=== PATIENT | male | born 1990 ===

== ENCOUNTER 2016-08-12 21:05 | Emergency (ER) | payer SELFPAY ==
[2016-08-12] MEDS ORDERED: Sodium Chloride 0.9% 1,000 ML IV STA (21:26)
[2016-08-12 21:28] VITALS: RESP 18; TEMP 98.9; O2SAT 100; BMI 23.0
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
[2016-08-12 22:08] LABS: BLOOD UREA NITROGEN 7 mg/dL (7-21); CALCIUM 8.9 mg/dL (8.4-10.5); CARBON DIOXIDE 24 mmol/L (21-33); CHLORIDE 105 mmol/L (98-107); GFR AFRICAN-AMERICAN > 60; GLUCOSE,RANDOM 99 mg/dL (70-110); LIPASE 127 U/L (23-300); POTASSIUM 3.9 mmol/L (3.6-5.0); SODIUM 141 mmol/L (132-148)
[2016-08-12 22:14] LABS: HEMATOCRIT 35.9 % (42.0-52.0); MEAN CELL VOLUME 79.1 fL (80.0-105.0); MEAN CORPUSCULAR HEMOGLOBIN 27.1 pg (25.0-35.0); MEAN CORPUSCULAR HGB CONC 34.3 g/dl (31.0-37.0); MEAN PLATELET VOLUME 12.3 fl (7.0-11.0); RED CELL DISTRIBUTION WIDTH 13.4 % (11.5-14.5); WHITE BLOOD COUNT 4.5 [, 10^3/ul] (4.5-11.0)
[2016-08-13 00:47] VITALS: BP 150/84; PULSE 98
== END 2016-08-13 00:50 | disposition home or self-care (01) ==
LOC: ED 21:05
DX: K29.70 Gastritis, unspecified, without bleeding (principal)
CPT/HCPCS: 80048; 83690; 85027; 96361; 96374; 96375; 99284; J2405; J7040

== ENCOUNTER 2016-09-06 11:20 | Emergency (ER) | payer OTHER ==
[2016-09-06 11:20] VITALS: BMI 23.0
[2016-09-06 11:57] VITALS: BP 151/76; PULSE 105; RESP 16; TEMP 98.8; O2SAT 100
[2016-09-06] MEDS ORDERED: Naproxen 550 mg Tab PO ONE (12:39)
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
--- NOTE | 2016-09-06 14:09 | RAD ---
PROCEDURE: Radiographs of the left tibia and fibula. HISTORY: trauma COMPARISON: 11/02/2015. TECHNIQUE: Frontal and lateral views obtained. FINDINGS: BONES: The prior left tibial intramedullary meg transfixing a prior distal tibial shaft fracture (fairly well healed) is renoted. There is probable interval increase cortical healing the lateral and more proximal medial tibial prior fracture sites since the prior exam. Mild residual deformity and overall increased sclerosis and cortical thickening are renoted. No interval hardware failure suggested. No interval fractures appreciated Two proximal and 2 distal screws before are present and intact. JOINT SPACES: Unremarkable. OTHER FINDINGS: None. IMPRESSION: Near- completely healed distal tibial fracture with residual deformity. Intramammary medullary meg- similar in appearance. No hardware failure suggested. No interval fracture suggested
--- NOTE | 2016-09-06 14:40 | US ---
PROCEDURE: Left lower extremity venous US HISTORY: Leg pain and swelling. Evaluate for DVT. PHYSICIAN(S): Jose East MD. TECHNIQUE: Duplex sonography and color-flow Doppler with graded compression were used to evaluate the deep venous system of the left lower extremity. FINDINGS: The visualized deep venous system of the left lower extremity is sonographically normal and compressible. Normal wave forms and augmentation are seen. There is no sonographic evidence for deep venous thrombosis in the visualized segments of the left lower extremity. IMPRESSION: 1. No sonographic evidence for deep venous thrombosis in the visualized segments of the left lower extremity.
== END 2016-09-06 14:35 | disposition home or self-care (01) ==
LOC: ED 11:20
DX: M79.605 Pain in left leg (principal); E03.9 Hypothyroidism, unspecified

== ENCOUNTER 2017-09-28 13:23 | Emergency (ER) | payer MEDICAID, OTHER ==
[2017-09-28 14:27] VITALS: RESP 18; BMI 22.3
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
--- NOTE | 2017-09-28 15:33 | RAD ---
PROCEDURE: Radiographs of the Right Forearm HISTORY: forearm pain COMPARISON: None available. TECHNIQUE: Frontal and lateral views obtained. FINDINGS: BONES: No fracture or destructive lesion. JOINT SPACES: Unremarkable. OTHER FINDINGS: None. IMPRESSION: Unremarkable radiographs of the right forearm.
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
[2017-09-28 16:19] VITALS: BP 136/67; PULSE 76; TEMP 98; O2SAT 100
== END 2017-09-28 16:16 | disposition home or self-care (01) ==
LOC: ED 13:23
DX: M79.601 Pain in right arm (principal); M25.552 Pain in left hip; M25.551 Pain in right hip; F17.210 Nicotine dependence, cigarettes, uncomplicated; E03.9 Hypothyroidism, unspecified

== ENCOUNTER 2018-01-22 04:26 | Emergency (ER) | payer MEDICAID ==
[2018-01-22 04:27] VITALS: BMI 22.3
[2018-01-22 04:53] VITALS: RESP 18; TEMP 98.5; O2SAT 97
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
[2018-01-22 05:33] VITALS: PULSE 106
[2018-01-22 05:43] VITALS: BP 127/82
--- NOTE | 2018-01-22 08:32 | RAD ---
Date of service: 01/22/2018 PROCEDURE: Radiographs of the left tibia and fibula. HISTORY: pain COMPARISON: None available. TECHNIQUE: Frontal and lateral views obtained. FINDINGS: BONES: No acute fracture. Old healed fracture mid tibial diaphysis. Tibial medullary meg with multiple transverse screws affixing the meg. JOINT SPACES: Unremarkable. OTHER FINDINGS: None. IMPRESSION: No acute fracture.
--- NOTE | 2018-01-22 08:32 | RAD ---
Date of service: 01/22/2018 PROCEDURE: Left Ankle Radiographs. HISTORY: pain COMPARISON: None FINDINGS: BONES: No acute fracture. Old healed tibial diaphysis fracture. Tibial medullary meg with transverse screw in distal tibial diaphysis. JOINTS: Normal. No osteoarthritis. Ankle mortise maintained. Talar dome intact SOFT TISSUES: Normal. OTHER FINDINGS: None. IMPRESSION: No acute fracture.
== END 2018-01-22 06:00 | disposition home or self-care (01) ==
LOC: ED 04:26
DX: M79.605 Pain in left leg (principal); F17.210 Nicotine dependence, cigarettes, uncomplicated; E03.9 Hypothyroidism, unspecified

== ENCOUNTER 2018-02-26 02:34 | Emergency (ER) | payer MEDICAID ==
[2018-02-26 02:35] VITALS: BMI 22.3
[2018-02-26 03:08] VITALS: TEMP 98.9
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
[2018-02-26 03:34] VITALS: BP 118/68; PULSE 90; RESP 18; O2SAT 100
== END 2018-02-26 03:33 | disposition home or self-care (01) ==
LOC: ED 02:34
DX: J03.90 Acute tonsillitis, unspecified (principal); E03.9 Hypothyroidism, unspecified; F17.210 Nicotine dependence, cigarettes, uncomplicated

== ENCOUNTER 2018-03-25 12:51 | Emergency (ER) | payer MEDICAID ==
[2018-03-25 13:47] VITALS: TEMP 98.9; BMI 23.0
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
[2018-03-25 19:58] VITALS: BP 119/75; PULSE 80; RESP 20; O2SAT 99
== END 2018-03-25 16:30 | disposition home or self-care (01) ==
LOC: ED 12:51
DX: J40 Bronchitis, not specified as acute or chronic (principal); F17.210 Nicotine dependence, cigarettes, uncomplicated; E03.9 Hypothyroidism, unspecified

== ENCOUNTER 2018-04-03 17:53 | Inpatient (IN) | payer MEDICAID ==
[2018-04-03 17:53] VITALS: BMI 23.0
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
[2018-04-03] MEDS ORDERED: Sodium Chloride 0.9% 1,000 ML IV STA (18:23)
--- NOTE | 2018-04-03 18:45 | RAD ---
Date of service: 04/03/2018 HISTORY: cough x 1month with sob COMPARISON: 07/28/2016 FINDINGS: LUNGS: The lungs are well inflated. There is ill-defined airspace disease in the right lower lobe. The left lung is clear. PLEURA: No pleural effusions or pneumothorax. CARDIOVASCULAR: There is mild cardiomegaly. No aortic atherosclerotic calcification present. OSSEOUS STRUCTURES: Within normal limits for the patient's age. VISUALIZED UPPER ABDOMEN: Normal. OTHER FINDINGS: None. IMPRESSION: Ill-defined airspace disease in the right lower lobe may represent subsegmental atelectasis however superimposed pneumonia cannot be excluded. Follow-up after medical management is recommended to ensure complete resolution. Mild cardiomegaly.
[2018-04-03 19:05] LABS: BASO # 0.01 K/mm3 (0.0-2.0); BASO % 0.1 % (0.0-3.0); EOS % 0.4 % (1.5-5.0); GRAN # 4.06 (1.4-6.5); GRAN % 58.5 % (50.0-68.0); HEMOGLOBIN 11.6 g/dL (14.0-18.0); LYMPH % 28.9 % (22.0-35.0); MEAN CELL VOLUME 76.8 fl (80.0-105.0); MEAN CORPUSCULAR HEMOGLOBIN 25.7 pg (25.0-35.0); MEAN CORPUSCULAR HGB CONC 33.4 g/dl (31.0-37.0); MEAN PLATELET VOLUME 12.1 fl (7.0-11.0); MONO # 0.8 (0.1-0.6); MONO % 12.1 % (1.0-6.0); RBC 4.52 10^6/uL (3.5-6.1); RED CELL DISTRIBUTION WIDTH 13.3 % (11.5-14.5)
[2018-04-03 19:10] LABS: INR 1.74; PROTHROMBIN TIME 20.1 SECONDS (9.4-12.5)
[2018-04-03 19:29] LABS: ALB/GLOB RATIO 0.9 (1.1-1.8); ALBUMIN 3.3 g/dL (3.0-4.8); ALT/SGPT 128 U/L (7-56); AST/SGOT 138 U/L (17-59); BLOOD UREA NITROGEN 12 mg/dL (7-21); CALCIUM 8.6 mg/dL (8.4-10.5); GFR NON-AFRICAN AMERICAN > 60; LIPASE 124 U/L (23-300); TROPONIN I < 0.01 ng/mL
[2018-04-03] MEDS ORDERED: diltiaZEM IVPB 100mg in NS 100 ML IV PRN (19:51)
[2018-04-03] MEDS ORDERED: Propranolol 1 mg/mL Inj IV ONE ×2 (19:54→20:18)
[2018-04-03] MEDS ORDERED: Magnesium Sulfate 2 gm/50 ml 2 GM/50 ML BAG IVPB ONE (20:12)
[2018-04-03] MEDS ORDERED: Magnesium Sulfate 1 gm in D5W 1 GM/100 ML BAG IVPB ONE (20:14)
[2018-04-03 20:57] LABS: B-TYPE NATRIURETIC PEPTIDE 4780 pg/mL (0-450)
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
[2018-04-03] MEDS: Cholestyramine 4 gm/Pkt UD PO SCH (23:21)
[2018-04-03 23:57] LABS: IRON 34 ug/dL (45-180)
[2018-04-04 00:06] LABS: % IRON SATURATION 8 % (20-55); TOTAL IRON BINDING CAPACITY 397 ug/dL (261-462)
--- NOTE | 2018-04-04 01:40 | CON ---
DATE: 04/04/2018 ENDOCRINOLOGY CONSULTATION LOCATION: In ICU 128, room 4. HISTORY OF PRESENT ILLNESS: This is a 27-year-old male with known history of previous thyroid dysfunction and now admitted with progressively worsening generalized body weakness and supervening nausea, dyspepsia and hyperdefecation and is now being referred for endocrine evaluation of hyperthyroidism and possible thyroid storm. PAST MEDICAL HISTORY: Admits to having been diagnosed in 2013 to have some kind of thyroid dysfunction and was initially given thyroid medications, the exact names not known at this time, but eventually was discontinued with no subsequent followup medically or with lab testing, history of cardiac arrhythmias, again off medications at this time. History of chronic asthmatic bronchitis with nonspecific coughing episodes. FAMILY HISTORY: Positive for thyroid disorder and his mother is taking some kind of thyroid medication. There is also history of hypertension and dyslipidemia. SOCIAL HISTORY: Patient has been a current smoker, but quit a few weeks ago when the bronchitis supervened as noted. He has a supportive family otherwise. REVIEW OF SYSTEMS: As mentioned above, admits to generalized body weakness with easy fatigability and tiredness and suboptimal energy level. Also admits to episodic dizziness and lightheadedness with bifrontal headaches. Admits to episodic precordial chest pain with progressively worsening palpitations especially on exertion. Also admits to paroxysmal coughing episodes over the past month or so worse through the time of admission. Also admits to episodic shortness of breath especially on exertion. His oral intake has been variable with nausea, dyspepsia and episodic vomiting episodes with marked hyperdefecation and has loose bowel movements 3-4 times daily for the past month or so was noted. He also admits to recent weight loss of over 10 pounds or so as noted with increasing bouts of anxiety and disrupted sleep patterns with marked insomnia as noted. PHYSICAL EXAMINATION: GENERAL: This is an average built male in no apparent distress. VITAL SIGNS: Blood pressure 140/80, pulse of 100 beats per minute and regular, temperature 98, respirations 20, height is 5 feet 3 inches, and weight is 130 pounds. HEENT: Head; normocephalic. Eyes; anicteric with pink conjunctivae. Positive stare. NECK: Supple. Thyroid gland shows diffuse thyromegaly, which is firm and nontender with positive thyroid bruits. No overt palpable thyroid nodules noted. HEART: Hyperdynamic precordium. S1 and S2 is rapid and regular. LUNGS: Clear to auscultation. ABDOMEN: Flat and soft with positive bowel sounds. EXTREMITIES: No peripheral edema. Pulses are +2 bilaterally. LABORATORY DATA: His chemistries showed a free T4 of 6.50 with a TSH of less than 0.02. The proBNP is 4780. Chemistry; BUN of 12, sodium 133, potassium 4.3, chloride 101, CO2 of 24, glucose 122 and creatinine 0.6. ASSESSMENT: This is a 27-year-old male with overt thyrotoxicosis presenting here with marked hyperthyroidism noted both historically, clinically and biochemically most likely related to underlying autoimmune thyroiditis, i.e., Graves disease with orbitopathy and underlying diffuse toxic goiter. He also had a brief bout of cardiac tachyarrhythmias with rapid atrial fibrillation that reversed to normal sinus rhythm with IV beta blockade given on admission. PLAN OF MANAGEMENT: We will continue the present medical management as initiated with Tapazole given as 20 mg p.o. either t.i.d. or q.i.d. as ordered. We will also continue the IV steroid therapy, which will help also with the inhibition of the T4-T3 conversion as noted. We will also continue the beta adrenergic blockade with propranolol therapy as ordered. We will obtain a comprehensive thyroid hormonal profile to include a total T4 or thyroxine, which will actually predict the degree of hyperthyroidism more than a free T4 as ordered. A thyroid stimulating immunoglobulin and a thyroid peroxidase and thyroglobulin panel will be ordered to confirm the presence of underlying thyroid autoimmunity. We will obtain a thyroid ultrasound also to fully delineate the thyroid lobe dimensions. We will hold off the thyroid scan and uptake at this time as this will be done if the patient opts for radioactive iodine ablation in the future. We will follow and advise accordingly. Louise Cunningham MD
[2018-04-04 03:58] LABS: PH,URINE 6.5 (4.7-8.0); URINE BILIRUBIN SMALL (NEGATIVE); URINE BLOOD NEGATIVE (NEGATIVE); URINE GLUCOSE (UA) NEGATIVE (NEGATIVE); URINE LEUKOCYTE ESTERASE NEGATIVE Leu/uL (NEGATIVE); URINE PROTEIN 100 mg/dL (<30 mg/dL)
[2018-04-04 04:01] LABS: URINE COLOR YELLOW (YELLOW)
[2018-04-04 04:02] LABS: URINE APPEARANCE CLEAR (CLEAR)
[2018-04-04 04:10] LABS: URINE BACTERIA RARE (NEG); URINE EPITHELIAL CELLS 0 - 2 /hpf (0-5); URINE RBC 0 - 2 /hpf (0-2); URINE WBC 0 - 2 /hpf (0-6)
[2018-04-04 05:48] LABS: BARBITURATES, UR NEGATIVE (NEGATIVE); BENZODIAZEPINES, UR NEGATIVE (NEGATIVE); OPIATES, UR NEGATIVE (NEGATIVE); PHENCYCLIDINE, UR NEGATIVE (NEGATIVE)
[2018-04-04] MEDS ORDERED: Pantoprazole 40 mg EC Tab PO SCH (06:00)
[2018-04-04 06:57] LABS: INR 2.03; PARTIAL THROMBOPLASTIN TIME 29.3 Seconds (25.1-36.5); PROTHROMBIN TIME 23.7 SECONDS (9.4-12.5)
[2018-04-04 06:59] LABS: GRAN # 3.17 (1.4-6.5); GRAN % 70.1 % (50.0-68.0); HEMOGLOBIN 11.8 g/dL (14.0-18.0); LYMPH # 0.9 (1.2-3.4); LYMPH % 20.8 % (22.0-35.0); MEAN CELL VOLUME 76.9 fl (80.0-105.0); MEAN CORPUSCULAR HEMOGLOBIN 25.1 pg (25.0-35.0); MEAN CORPUSCULAR HGB CONC 32.6 g/dl (31.0-37.0); MONO # 0.4 (0.1-0.6); MONO % 9.1 % (1.0-6.0); PLATELET COUNT 165 10^3/uL (120.0-450.0); RBC 4.71 10^6/uL (3.5-6.1); RED CELL DISTRIBUTION WIDTH 13.3 % (11.5-14.5); WHITE BLOOD COUNT 4.5 10^3/uL (4.5-11.0)
[2018-04-04 07:28] LABS: TROPONIN I < 0.01 ng/mL
[2018-04-04 07:33] LABS: FREE T4 5.91 ng/dL (0.78-2.19); T4 20.2 ug/dL (5.5-11.0)
[2018-04-04 07:36] LABS: ALBUMIN 3.4 g/dL (3.0-4.8); ALT/SGPT 330 U/L (7-56); AST/SGOT 613 U/L (17-59); BILIRUBIN,DIRECT 1.6 mg/dL (0.0-0.4); BLOOD UREA NITROGEN 17 mg/dL (7-21); CALCIUM 8.7 mg/dL (8.4-10.5); GAMMA GLUTAMYL TRANSPEPTIDASE 149 U/L (8-78); GFR NON-AFRICAN AMERICAN > 60; HDL CHOLESTEROL 15 mg/dL (29-60)
[2018-04-04 07:41] LABS: LDL CHOLESTEROL 51 mg/dL (0-129)
[2018-04-04] MEDS: Albuterol 0.083% Inhal Sol (2.5 mg/3 mL) UD IH SCH ×5 (08:13→23:52)
[2018-04-04] MEDS ORDERED: Sod Polystyrene Sulf 15 gm/60 ml Susp PO ONE ×2 (08:24→10:45)
[2018-04-04 08:31] LABS: ERYTHROCYTE SEDIMENTATION RATE 7 mm/hr (0.0-15.0)
--- NOTE | 2018-04-04 08:34 | CT ---
Date of service: 04/03/2018 PROCEDURE: CT Chest with contrast (Pulmonary Angiogram) HISTORY: tachycardia, sob COMPARISON: None available. TECHNIQUE: Axial computed tomography images were obtained of the chest in the pulmonary arterial phase of enhancement. Coronal and sagittal reformatted images were created and reviewed. Radiation dose: Total exam DLP = 374.48 mGy-cm. This CT exam was performed using one or more of the following dose reduction techniques: Automated exposure control, adjustment of the mA and/or kV according to patient size, and/or use of iterative reconstruction technique. Intravenous contrast dose: 147 cc of Omni 350 FINDINGS: PULMONARY ARTERIES: Unremarkable. No pulmonary embolism. AORTA: No acute findings. No thoracic aortic aneurysm. No aortic atherosclerotic calcification or mural plaque present. LUNGS: Unremarkable. No nodule, mass or pulmonary consolidation. PLEURAL SPACES: Large bilateral pleural effusions HEART: Unremarkable. No cardiomegaly. No significant pericardial effusion. LYMPH NODES: No lymphadenopathy. BONES, CHEST WALL: Unremarkable. No fracture or destructive lesion OTHER FINDINGS: Unremarkable. IMPRESSION: Unremarkable CT pulmonary angiogram. No pulmonary embolus. Large bilateral pleural effusions
--- NOTE | 2018-04-04 09:22 | CP.PCM.CON ---
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 Albumin/Globulin Ratio Triglycerides Cholesterol LDL Cholesterol Direct HDL Cholesterol Free T4 5.91 H Thyroxine (T4) 20.2 H Free T3 pg/mL TSH 3rd Generation < 0.02 L Cortisol AM Sample 61.9 H Urine Color Urine Appearance Urine pH Ur Specific [place] Urine Protein Urine Glucose (UA) Urine Ketones Urine Blood Urine Nitrate Urine Bilirubin Urine Urobilinogen Ur Leukocyte Esterase Urine RBC Urine WBC Ur Epithelial Cells Urine Bacteria Urine Opiates Screen Urine Methadone Screen Acetaminophen Ur Barbiturates Screen Ur Phencyclidine Scrn Ur Amphetamines Screen U Benzodiazepines Scrn U Oth Cocaine Metabols U Cannabinoids Screen Hepatitis A IgM Ab Hep Bs Antigen Hep B Core IgM Ab Hepatitis C Antibody HIV 1&2 Antibody Screen 04/04/18 04/04/18 04/04/18 05:30 05:30 06:00 WBC RBC Hgb Hct MCV MCH MCHC RDW Plt Count Gran % Lymph % (Auto) [place] % (Auto) Eos % (Auto) Baso % (Auto) Gran # Lymph # (Auto) [place] # (Auto) Eos # (Auto) Baso # (Auto) Differential Comment ESR Retic Count Haptoglobin PT INR APTT Sodium Potassium Chloride Carbon Dioxide Anion Gap BUN Creatinine Est GFR ( Amer) Est GFR (Non-Af Amer) Random Glucose Hemoglobin A1c 5.7 Calcium Phosphorus Magnesium Iron TIBC % Saturation Transferrin Ferritin Total Bilirubin Direct Bilirubin GGT AST ALT Alkaline Phosphatase Ammonia Lactate Dehydrogenase TNP Total Creatine Kinase 55 Troponin I TNP Total Protein Albumin Globulin Albumin/Globulin Ratio Triglycerides Cholesterol LDL Cholesterol Direct HDL Cholesterol Free T4 Thyroxine (T4) Free T3 pg/mL TSH 3rd Generation Cortisol AM Sample Urine Color Urine Appearance Urine pH Ur Specific [place] Urine Protein Urine Glucose (UA) Urine Ketones Urine Blood Urine Nitrate Urine Bilirubin Urine Urobilinogen Ur Leukocyte Esterase Urine RBC Urine WBC Ur Epithelial Cells Urine Bacteria Urine Opiates Screen Urine Methadone Screen Acetaminophen < 10.0 L Ur Barbiturates Screen Ur Phencyclidine Scrn Ur Amphetamines Screen U Benzodiazepines Scrn U Oth Cocaine Metabols U Cannabinoids Screen Hepatitis A IgM Ab Hep Bs Antigen Hep B Core IgM Ab Hepatitis C Antibody HIV 1&2 Antibody Screen 04/04/18 04/04/18 04/04/18 06:00 13:52 13:52 WBC RBC Hgb Hct MCV MCH MCHC RDW Plt Count Gran % Lymph % (Auto) [place] % (Auto) Eos % (Auto) Baso % (Auto) Gran # Lymph # (Auto) [place] # (Auto) Eos # (Auto) Baso # (Auto) Differential Comment ESR Retic Count Haptoglobin PT 32.9 H INR 2.80 APTT Sodium 134 Potassium 5.0 Chloride 98 Carbon Dioxide 21 Anion Gap 20 BUN 21 Creatinine 0.8 Est GFR ( Amer) > 60 Est GFR (Non-Af Amer) > 60 Random Glucose 262 H Hemoglobin A1c Calcium 8.4 Phosphorus Magnesium Iron TIBC % Saturation Transferrin Ferritin Total Bilirubin 3.1 H Direct Bilirubin 1.7 H GGT 122 H AST 851 H D ALT 443 H Alkaline Phosphatase 31 L D Ammonia Lactate Dehydrogenase 2632 H Total Creatine Kinase Troponin I Total Protein 6.4 Albumin 3.2 Globulin 3.2 Albumin/Globulin Ratio 1.0 L Triglycerides Cholesterol LDL Cholesterol Direct HDL Cholesterol Free T4 Thyroxine (T4) Free T3 pg/mL TSH 3rd Generation Cortisol AM Sample Urine Color Urine Appearance Urine pH Ur Specific [place] Urine Protein Urine Glucose (UA) Urine Ketones Urine Blood Urine Nitrate Urine Bilirubin Urine Urobilinogen Ur Leukocyte Esterase Urine RBC Urine WBC Ur Epithelial Cells Urine Bacteria Urine Opiates Screen Urine Methadone Screen Acetaminophen Ur Barbiturates Screen Ur Phencyclidine Scrn Ur Amphetamines Screen U Benzodiazepines Scrn U Oth Cocaine Metabols U Cannabinoids Screen Hepatitis A IgM Ab Hep Bs Antigen Hep B Core IgM Ab Hepatitis C Antibody HIV 1&2 Antibody Screen 04/04/18 04/04/18 04/04/18 17:30 17:30 21:35 WBC RBC Hgb Hct MCV MCH MCHC RDW Plt Count Gran % Lymph % (Auto) [place] % (Auto) Eos % (Auto) Baso % (Auto) Gran # Lymph # (Auto) [place] # (Auto) Eos # (Auto) Baso # (Auto) Differential Comment ESR Retic Count Haptoglobin PT INR APTT Sodium 131 L 132 Potassium 4.6 4.1 Chloride 95 L 95 L Carbon Dioxide 23 24 Anion Gap 18 17 BUN 22 H 23 H Creatinine 0.8 0.8 Est GFR ( Amer) > 60 > 60 Est GFR (Non-Af Amer) > 60 > 60 Random Glucose 208 H 121 H Hemoglobin A1c Calcium 8.3 L 8.4 Phosphorus Magnesium Iron TIBC % Saturation Transferrin Ferritin Total Bilirubin 2.4 H 2.1 H Direct Bilirubin 1.4 H 1.2 H GGT 128 H 131 H AST 1215 H 1343 H ALT 591 H 678 H Alkaline Phosphatase 75 112 Ammonia < 9 L Lactate Dehydrogenase Total Creatine Kinase Troponin I Total Protein 6.8 6.9 Albumin 3.4 3.5 Globulin 3.4 3.4 Albumin/Globulin Ratio 1.0 L 1.0 L Triglycerides Cholesterol LDL Cholesterol Direct HDL Cholesterol Free T4 Thyroxine (T4) Free T3 pg/mL TSH 3rd Generation Cortisol AM Sample Urine Color Urine Appearance Urine pH Ur Specific [place] Urine Protein Urine Glucose (UA) Urine Ketones Urine Blood Urine Nitrate Urine Bilirubin Urine Urobilinogen Ur Leukocyte Esterase Urine RBC Urine WBC Ur Epithelial Cells Urine Bacteria Urine Opiates Screen Urine Methadone Screen Acetaminophen Ur Barbiturates Screen Ur Phencyclidine Scrn Ur Amphetamines Screen U Benzodiazepines Scrn U Oth Cocaine Metabols U Cannabinoids Screen Hepatitis A IgM Ab Hep Bs Antigen Hep B Core IgM Ab Hepatitis C Antibody HIV 1&2 Antibody Screen 04/04/18 21:35 WBC RBC Hgb Hct MCV MCH MCHC RDW Plt Count Gran % Lymph % (Auto) [place] % (Auto) Eos % (Auto) Baso % (Auto) Gran # Lymph # (Auto) [place] # (Auto) Eos # (Auto) Baso # (Auto) Differential Comment ESR Retic Count Haptoglobin PT 31.2 H INR 2.68 APTT Sodium Potassium Chloride Carbon Dioxide Anion Gap BUN Creatinine Est GFR ( Amer) Est GFR (Non-Af Amer) Random Glucose Hemoglobin A1c Calcium Phosphorus Magnesium Iron TIBC % Saturation Transferrin Ferritin Total Bilirubin Direct Bilirubin GGT AST ALT Alkaline Phosphatase Ammonia Lactate Dehydrogenase Total Creatine Kinase Troponin I Total Protein Albumin Globulin Albumin/Globulin Ratio Triglycerides Cholesterol LDL Cholesterol Direct HDL Cholesterol Free T4 Thyroxine (T4) Free T3 pg/mL TSH 3rd Generation Cortisol AM Sample Urine Color Urine Appearance Urine pH Ur Specific [place] Urine Protein Urine Glucose (UA) Urine Ketones Urine Blood Urine Nitrate Urine Bilirubin Urine Urobilinogen Ur Leukocyte Esterase Urine RBC Urine WBC Ur Epithelial Cells Urine Bacteria Urine Opiates Screen Urine Methadone Screen Acetaminophen Ur Barbiturates Screen Ur Phencyclidine Scrn Ur Amphetamines Screen U Benzodiazepines Scrn U Oth Cocaine Metabols U Cannabinoids Screen Hepatitis A IgM Ab Hep Bs Antigen Hep B Core IgM Ab Hepatitis C Antibody HIV 1&2 Antibody Screen Attending/Attestation - Attestation I have personally seen and examined this patient.: Yes I have fully participated in the care of the patient.: Yes I have reviewed all pertinent clinical information: Yes
[2018-04-04] MEDS ORDERED: Insulin Regular 1 UNITS/0.01 ML ML SC STA ×3 (09:31→10:39)
[2018-04-04] MEDS ORDERED: Dextrose 50% SYRINGE Inj (50 ml) IVP ONE ×2 (09:31→10:45)
--- NOTE | 2018-04-04 09:35 | US ---
Date of service: 04/03/2018 HISTORY: RUQ pain COMPARISON: None. TECHNIQUE: Sonographic evaluation of the abdomen. FINDINGS: LIVER: Measures 16.2 cm. Normal echogenicity of the liver parenchyma. No mass. No intrahepatic bile duct dilatation. Normal directional portal venous blood flow. GALLBLADDER: The gallbladder is mildly distended with a thick wall measuring up to 6.5 mm greatest thickness. Incidental ascites is identified and the finding may be a function of gallbladder hydrops. Clinically correlate further. No cholelithiasis appreciable. COMMON BILE DUCT: Measures 3.3 mm. No stones. No dilatation. PANCREAS: Unremarkable as visualized. No mass. No ductal dilatation. RIGHT KIDNEY: Measures 10.9cm. Normal echogenicity. No calculus, mass, or hydronephrosis. LEFT KIDNEY: Measures 12.0cm. Normal echogenicity. No calculus, mass, or hydronephrosis. SPLEEN: Normal in size and contour, 10.3 cm. No mass. AORTA: No aneurysmal dilatation. IVC: Unremarkable. OTHER FINDINGS: Bilateral pleural effusions incidentally identified. IMPRESSION: No cholelithiasis identified or evidence to suggest biliary tree dilatation, however, the gallbladder wall appears thickened. Presence of ascites may indicate gallbladder hydrops appear rather than cholecystitis and clinical correlation is advised. Limited abdominal ascites. Bilateral pleural effusions incidentally identified. Concordant preliminary report from [facility], 04/03/2018.
[2018-04-04] MEDS ORDERED: Enoxaparin 40 mg Syringe SC SCH (10:00)
[2018-04-04] MEDS ORDERED: ACETYLCYSTEINE IVPB ONE ×4 (10:23→14:30)
[2018-04-04] MEDS ORDERED: DEXTROSE 5% IVPB ONE ×4 (10:23→14:30)
[2018-04-04] MEDS ORDERED: WATER IVPB ONE ×4 (10:23→14:30)
--- NOTE | 2018-04-04 10:39 | US ---
Date of service: 04/04/2018 HISTORY: diffuse toxic goiter/hyperthyroidism TECHNIQUE: Sonographic evaluation of the thyroid gland. COMPARISON: None available. FINDINGS: RIGHT LOBE: Measures 6.6 x 2.9 x 2.6 cm. Heterogeneous echotexture is appreciated throughout the right lobe without definitive cystic or solid mass identifiable. Hyperemic blood flow is suggested on a moderate basis diffusely. LEFT LOBE: Measures 6.5 x 2.5 x 3.1 cm. Heterogeneous echotexture is appreciated throughout the left lobe without definitive cystic or solid mass identifiable. Hyperemic blood flow is suggested on a moderate basis diffusely. ISTHMUS: Measures 0.53 cm. Heterogeneous but nonfocal. OTHER FINDINGS: None . IMPRESSION: Mild thyromegaly is identified including the isthmus, with hyperemic blood flow throughout. This potentially may reflect thyroiditis. Clinically correlate further. No definable cystic or solid mass appreciated.
--- NOTE | 2018-04-04 10:41 | RAD ---
Date of service: 04/04/2018 HISTORY: pleural effusions COMPARISON: 04/03/2018 TECHNIQUE: Chest PA and lateral FINDINGS: LUNGS: No active pulmonary disease. PLEURA: No significant pleural effusion identified. No pneumothorax apparent. CARDIOVASCULAR: No aortic atherosclerotic calcification present. Mild cardiomegaly no pulmonary vascular congestion. OSSEOUS STRUCTURES: No significant abnormalities. VISUALIZED UPPER ABDOMEN: Normal. OTHER FINDINGS: None. IMPRESSION: No active disease.
[2018-04-04] MEDS: Cholestyramine 4 gm/Pkt UD PO SCH ×4 (10:45→21:53)
--- NOTE | 2018-04-04 11:43 | CP.PCM.PN ---
<Francisca Go - Last Filed: 04/04/18 12:23> Subjective - Date & Time of Evaluation Date of Evaluation: 04/04/18 Time of Evaluation: 09:30 - Subjective Subjective: Francisca Go PGY1 Medicine Progress Note Patient seen and examined. Admits to right sided abdominal pain. Possible transfer to [facility] for liver evaluation. Patient initially refused abdominal ultrasound and further blood work. Denies CP, SOB, fevers, diaphoresis, palpitations, muscle rigidity, urinary complaints, numbness, tingling and swellings. Objective - Vital Signs/Intake and Output Vital Signs (last 24 hours): Temp Pulse Resp BP Pulse Ox 98.7 F 109 H 20 125/53 L 100 04/03/18 23:30 04/04/18 05:02 04/03/18 23:30 04/04/18 11:06 04/03/18 22:35 Intake and Output: 04/04/18 04/04/18 06:59 18:59 Intake Total 960 Output Total 402 Balance 558 - Medications Medications: Current Medications Albuterol Sulfate (Albuterol 0.083% Inhal Sandra (2.5 Mg/3 Ml) Ud) 2.5 mg IH Q4 [facility] Last Admin: 04/04/18 08:13 Dose: Not Given Cholestyramine Resin (Questran) 4 gm PO QID [facility] Last Admin: 04/04/18 10:45 Dose: 4 gm Enoxaparin Sodium (Lovenox) 40 mg SC DAILY [facility]; Protocol Last Admin: 04/04/18 10:52 Dose: 40 mg Hydrocortisone Sodium Succinate (Solu-Cortef) 100 mg IVP Q8 [facility] Last Admin: 04/04/18 08:03 Dose: 100 mg Acetylcysteine 3,130 mg/ (Dextrose) 515.65 mls @ 125 mls/hr IVPB ONCE ONE Stop: 04/04/18 14:32 Acetylcysteine 6,260 mg/ (Dextrose) 1,031.3 mls @ 62.5 mls/hr IVPB ONCE ONE Stop: 04/05/18 07:00 Acetylcysteine 9,400 mg/ (Dextrose) 247 mls @ 200 mls/hr IVPB ONCE ONE Stop: 04/04/18 12:44 Methimazole (Tapazole) 20 mg PO Q6 [facility] Last Admin: 04/04/18 05:09 Dose: Not Given Ondansetron HCl (Zofran Inj) 4 mg IVP Q4H PRN PRN Reason: Nausea/Vomiting Last Admin: 04/04/18 09:14 Dose: 4 mg Pantoprazole Sodium (Protonix Ec Tab) 40 mg PO 0600 [facility] Last Admin: 04/04/18 08:03 Dose: 40 mg Propranolol HCl (Inderal) 10 mg PO Q6 [facility] Last Admin: 04/04/18 05:09 Dose: Not Given - Labs Labs: 04/04/18 05:30 04/04/18 05:30 PT 23.7 SECONDS (9.4-12.5) H 04/04/18 05:30 INR 2.03 04/04/18 05:30 APTT 29.3 Seconds (25.1-36.5) 04/04/18 05:30 - Additional Findings Additional findings: - Constitutional Appears: Non-toxic, No Acute Distress Additional comments: agitated - Head Exam Head Exam: ATRAUMATIC, NORMOCEPHALIC - Eye Exam Eye Exam: EOMI Additional comments: conjunctiva pale - ENT Exam ENT Exam: Mucous Membranes Moist - Neck Exam Neck exam: Positive for: Full Rom, Thyromegaly. No tenderness appreciated - Respiratory Exam Respiratory Exam: Clear to Auscultation Bilateral, NORMAL BREATHING PATTERN. absent: Rales, Wheezes - Cardiovascular Exam Cardiovascular Exam: Tachycardia, +S1, +S2. absent: Rubs, Systolic Murmur - GI/Abdominal Exam GI & Abdominal Exam: Normal Bowel Sounds, hepatosplenomegaly, RUQ tenderness. absent: Guarding, Rebound, Rigid, Angel sign - Extremities Exam Extremities exam: Positive for: normal inspection, pedal pulses present. N egative for: pedal edema - Back Exam Back exam: CVA tenderness (R), FULL ROM - Neurological Exam Neurological exam: Alert, Oriented x3 - Skin Skin Exam: Dry, Intact, Warm Assessment and Plan - Assessment and Plan (Free Text) Assessment: This is a 27 year old male with PMH of unspecified thyroid disorder presenting to the hospital for one month history of worsening nausea, vomiting, right sided abdominal pain, diarrhea and SOB. 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 Plan: Thyroid storm: -consider etiology from recent URI vs recent weight loss supplement called "[employer]" vs autoimmune -low TSH, elevated T4. Afebrile -thyroid US shows mild thyromegaly with hyperemic blood flow, may reflect thyroiditis. No cyst or solid mass appreciated -BRANDO, thyroid peroxidase, thyroglobulin panel pending -hydrocortison 100mg IVP q8, mehimazole 20mg PO q6, propranolol 10mg PO 6 -UDS positive for cannabinoids -AM cortisol pending -blood/urine/sputum/cdiff culture pending -Endo on consult, Dr. Cunningham Atrial fibrillation -EKG on presentation showed afib with RVR at 147bpm, controlled with cardizem 20mg bolus -initially on cardizem, currently rate controlled. -continue propranolol 10mg q6 -likely 2/2 thyroid storm Heart failure -CTA showed no PE, large B/L pleural effusions R>L, diffuse pulmonary edema, severe cardiomegaly with pulmonary venous congestive changes, bilateral hilar adenopathy, diffuse pulmonary edema -pleural effusion likely 2/2 afib with decreased LV outflow causing blood to be backed up into the lungs -echo pending -BNP elevated at 4780, trops <0.01 -lasix 40mg IV given in AM, will repeat CXR in PM -monitor weight daily, I/O's -Cardio on consult, Dr. Domingo Acute Liver failure -uptrending LFT's today, consider shock liver as patient was hypotensive overnight vs hepatic congestion from right heart failure -Abd US shows B/L pleural effusions, moderate ascites -INR is uptrending, concern for increased prognosis. Possible transfer to [facility] for liver evaluation -MELD score is 23 corresponding to 7-10% mortality in 90 days -Tbilli elevated, direct bilirubin elevated -HIV, hepatitis, mitochondrial antibody, smooth muscle antibody pending -GI on consult, Dr. Saeed Microcytic Anemia -Hg is 11.8 from 11.6, MCV is 76.9. Hg is stable, no signs of bleeding -iron low, TIBC WNL, transferrin WNL, feritin pending - unclear etiology -retic count responding appropriately - 1.56 -peripheral smear pending -will continue to monitor Hyperkalemia -K 5.7 this morning -kayexalate, insulin, D50, calcium gluconate given -recheck CMP in PM PPX with protonix and lovenox Patient seen and examined with attending, Dr. Jessica Persaud <Jessica Persaud R - Last Filed: 04/05/18 02:06> Objective - Vital Signs/Intake and Output Vital Signs (last 24 hours): Temp Pulse Resp BP Pulse Ox 97.4 F L 125 H 21 110/55 L 88 L 04/04/18 10:00 04/05/18 00:20 04/05/18 00:20 04/05/18 00:00 04/05/18 00:20 Intake and Output: 04/04/18 04/05/18 18:59 06:59 Intake Total 1905 Output Total 2102 Balance -197 - Labs Labs: 04/04/18 05:30 04/04/18 21:35 PT 31.2 SECONDS (9.4-12.5) H 04/04/18 21:35 INR 2.68 04/04/18 21:35 APTT 29.3 Seconds (25.1-36.5) 04/04/18 05:30 Attending/Attestation - Attestation I have personally seen and examined this patient.: Yes I have fully participated in the care of the patient.: Yes I have reviewed all pertinent clinical information, including history, physical exam and plan: Yes Notes (Text): Patient seen and examined by me with resident at 10AM on 04/04/18. Case including HPI, physical exam, and assessment and plan discussed with resident. Agree with above with following additions/corrections. Patient is 27-year-old male with past medical history significant for recent bronchitis per patient and unspecified thyroid disorder that presented to the emergency room with worsening of right flank pain, nausea/vomiting/diarrhea, shortness of breath, and cough worsening over one month. Patient states that he is feeling a little better today. Patient states he is only having abdominal pain when the right upper abdominal quadrant is palpated. Patient states he has shortness of breath when he is lying flat. Also complains of cough. No chest pain or palpitations. No fevers or chills. No headaches or dizziness. No nausea or vomiting. Patient is tolerating diet. No dysuria. Patient is having bowel movements. Physical exam: General: Awake and alert lying in bed in no acute distress HEENT: Normocephalic, atraumatic. Extraocular muscles intact, pupils equal and reactive, positive scleral icterus. Oropharynx is pink and moist. Neck is supple. Cardiovascular: Irregularly irregular rhythm. No murmurs, rubs, or gallops appreciated Pulmonary: Normal respiratory effort. Decreased breath sounds. No rhonchi, rales, or wheezing appreciated. Gastrointestinal: Soft, nondistended. Positive right upper quadrant abdominal tenderness with mild palpation. Positive bowel sounds all 4 quadrants. No guarding. Musculoskeletal: Moves all extremities. No calf tenderness. No CVA tenderness. Trace bilateral lower extremity edema Central nervous system: AAO x3, CN 2-12 grossly intact. 5 out of 5 muscle strength all extremities. Dermatologic: Skin warm and dry. Assessment and plan: Patient is 27-year-old male with past medical history significant for recent bronchitis per patient and unspecified thyroid disorder that presented to the emergency room with worsening of right flank pain, nausea/vomiting/diarrhea, shortness of breath, and cough worsening over one month. 1. 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 Endocrinology following, recommendations appreciated. Continue methimazole, propanolol, and hydrocortisone. Continue Questran. Pending BRANDO, thyroid peroxidase, and thyroglobulin panel. Thyroid ultrasound per radiologist shows mild thyromegaly is identified including the isthmus with hyperemic blood flow throughout, this potentially may reflect thyroiditis, no definable cystic or solid masses appreciated. 2. Liver failure. LFTs up trending. INR up trending. Likely secondary to #1. GI following, recommendations appreciated. Abdominal ultrasound per radiologist showed no cholelithiasis identified or evidence to suggest biliary tree dilatation however, the gallbladder wall appears thickened; presence of ascites may indicate gallbladder hydrops appears rather than cholecystitis; limited abdominal ascites, bilateral pleural effusions incidentally identified. Portable vein duplex ultrasound per radiologist showed patent portal vein with hepatopetal flow. Continue to monitor LFTs every 4 hours. Likely transfer to higher level of care. Continue with acetylcysteine. 3. Bilateral pleural effusions seen on abdominal ultrasound. Severe biventricular failure. CTA chest per radiologist showed unremarkable CT pulmonary angiogram, no pulmonary embolism, large bilateral pleural effusions. 2-D echo per beating machine operator shows severe biventricular failure, moderate to severe MR and TR, ejection fraction approximately 20%. Cardiology consulted, recommendations appreciated. Aldactone added per cardiology. Patient given Lasix. Patient on Cozaar and propanolol. Strict I's and O's. Monitor daily weights. 4. New onset atrial fibrillation. Patient was given Cardizem in the emergency room. Likely secondary to #1. Continue with propanolol and methimazole. Cardiology following, recommendations appreciated. 5. Hyperkalemia. Patient given calcium gluconate. Patient given insulin and D50 with resolution. Continue to monitor 6. GI/DVT prophylaxis. Protonix/Lovenox Case discussed in detail with the patient regarding current diagnosis and treatment plan. Seriousness of patient's condition discussed at length with patient. Compliance with treatment also discussed at length with patient. All questions answered.
[2018-04-04 12:48] LABS: HEPATITIS B SURFACE AG Negative (NEGATIVE)
--- NOTE | 2018-04-04 12:48 | CP.CCUPN ---
<Alicia Shah - Last Filed: 04/04/18 13:33> CCU Subjective - Physician Review Subjective (Free Text): CRITICAL CARE PROGRESS NOTE FOR DR. CLOVIS Shah PGY-1 Pt seen and examined at bedside this am. He was initially agitated and was refusing bloodwork and tests however is amenable to treatment with further discussion. He reports nausea, poor appetite, generalized fatigue for the past month. He reports that he drinks a 12-pack of beer about 3x/week since his father in june, however reports he hasn't drank in the past few days. He reports smoking weed occasionally, but doesn't take any other drugs. He reports consuming "kidney detox" the day before yesterday that he purchased at [facility]. Upon interview, he denies complaints and reports feeling better. He denies other ROS CCU Objective - Vital Signs / Intake & Output Vital Signs (Last 4 hours): Vital Signs BP 04/04/18 11:06 125/53 L 04/04/18 10:44 125/53 L Intake and Output (Last 8hrs): Intake & Output 04/03/18 04/04/18 04/04/18 22:59 06:59 14:59 Intake Total 960 Output Total 402 Balance 558 Weight 58.967 kg 62.641 kg Intake: Oral 960 Output: Urine 400 Urine, Voided 400 Stool 1 Emesis 1 - Physical Exam Head: Positive for: Atraumatic, Normocephalic Pupils: Positive for: PERRL Extroacular Muscles: Positive for: EOMI Conjunctiva: Positive for: Icteric Mouth: Positive for: Moist Mucous Membranes Neck: Positive for: Normal Range of Motion Respiratory/Chest: Positive for: Clear to Auscultation, Good Air Exchange, Rhonchi (RLL). Negative for: Respiratory Distress, Accessory Muscle Use Cardiovascular: Positive for: Regular Rate and Rhythm, Normal S1, S2. Negative for: Murmurs Abdomen: Positive for: Distention. Negative for: Tenderness, Peritoneal Signs, Rebound, Guarding Back: Positive for: Normal Inspection Upper Extremity: Positive for: Normal Inspection. Negative for: Cyanosis, Edema Lower Extremity: Positive for: Normal Inspection. Negative for: Edema Neurological: Positive for: GCS=15, CN II-XII Intact, Speech Normal Skin: Positive for: Warm, Dry, Rashes (mild jaundice) Psychiatric: Positive for: Alert, Oriented x 3, Normal Insight, Normal Concentration - Medications Active Medications: Active Medications Generic Name Dose Route Start Last Admin Trade Name Freq PRN Reason Stop Dose Admin Albuterol Sulfate 2.5 mg 04/04/18 00:00 04/04/18 08:13 Albuterol 0.083% Inhal Sandra (2.5 Mg/3 Ml) Ud IH Not Given Q4 ALLEY Cholestyramine Resin 4 gm 04/03/18 22:00 04/04/18 10:45 Questran PO 4 gm QID ALLEY Administration Enoxaparin Sodium 40 mg 04/04/18 10:00 04/04/18 10:52 Lovenox SC 40 mg DAILY ALLEY Administration Protocol Hydrocortisone Sodium Succinate 100 mg 04/03/18 22:00 04/04/18 08:03 Solu-Cortef IVP 100 mg Q8 ALLEY Administration Acetylcysteine 3,130 mg/ 515.65 mls @ 125 mls/hr 04/04/18 10:25 Dextrose IVPB 04/04/18 14:32 ONCE ONE Acetylcysteine 6,260 mg/ 1,031.3 mls @ 62.5 mls/hr 04/04/18 14:30 Dextrose IVPB 04/05/18 07:00 ONCE ONE Methimazole 20 mg 04/04/18 00:00 04/04/18 05:09 Tapazole PO Not Given Q6 ALLEY Ondansetron HCl 4 mg 04/04/18 01:00 04/04/18 09:14 Zofran Inj IVP 4 mg Q4H PRN Administration Nausea/Vomiting Pantoprazole Sodium 40 mg 04/04/18 06:00 04/04/18 08:03 Protonix Ec Tab PO 40 mg 0600 ALLEY Administration Propranolol HCl 10 mg 04/04/18 00:00 04/04/18 05:09 Inderal PO Not Given Q6 ALLEY - Patient Studies Lab Studies: Lab Studies 04/04/18 04/04/18 04/04/18 Range/Units 06:00 06:00 05:30 WBC (4.5-11.0) 10^3/uL RBC (3.5-6.1) 10^6/uL Hgb (14.0-18.0) g/dL Hct (42.0-52.0) % MCV (80.0-105.0) fl MCH (25.0-35.0) pg MCHC (31.0-37.0) g/dl RDW (11.5-14.5) % Plt Count (120.0-450.0) 10^3/uL MPV (7.0-11.0) fl Gran % (50.0-68.0) % Lymph % (Auto) (22.0-35.0) % [place] % (Auto) (1.0-6.0) % Eos % (Auto) (1.5-5.0) % Baso % (Auto) (0.0-3.0) % Gran # (1.4-6.5) Lymph # (Auto) (1.2-3.4) [place] # (Auto) (0.1-0.6) Eos # (Auto) (0.0-0.7) Baso # (Auto) (0.0-2.0) K/mm3 Differential Comment ESR (0.0-15.0) mm/hr Retic Count (0.5-1.5) % Haptoglobin (30.0-200.0) mg/dL PT (9.4-12.5) SECONDS INR APTT (25.1-36.5) Seconds D-Dimer, Quantitative (0-243) ng/mlDDU Sodium (132-148) mmol/L Potassium (3.6-5.0) mmol/L Chloride (98-107) mmol/L Carbon Dioxide (21-33) mmol/L Anion Gap (10-20) BUN (7-21) mg/dL Creatinine (0.8-1.5) mg/dl Est GFR ( Amer) Est GFR (Non-Af Amer) POC Glucose (mg/dL) (65-110) mg/dL Random Glucose (70-110) mg/dL Hemoglobin A1c (4.2-6.5) % Calcium (8.4-10.5) mg/dL Phosphorus (2.5-4.5) mg/dL Magnesium (1.7-2.2) mg/dL Iron (45-180) ug/dL TIBC (261-462) ug/dL % Saturation (20-55) % Transferrin (206-381) mg/dL Total Bilirubin (0.2-1.3) mg/dL Direct Bilirubin (0.0-0.4) mg/dL GGT (8-78) U/L AST (17-59) U/L ALT (7-56) U/L Alkaline Phosphatase (38-126) U/L Ammonia (9-33) umol/L Lactate Dehydrogenase 2632 H TNP Total Creatine Kinase 55 (35-230) U/L Troponin I TNP ng/mL NT-Pro-B Natriuret Pep (0-450) pg/mL Total Protein (5.8-8.3) g/dL Albumin (3.0-4.8) g/dL Globulin gm/dL Albumin/Globulin Ratio (1.1-1.8) Triglycerides (35-160) mg/dL Cholesterol (130-200) mg/dL LDL Cholesterol Direct (0-129) mg/dL HDL Cholesterol (29-60) mg/dL Lipase (23-300) U/L Free T4 (0.78-2.19) ng/dL Thyroxine (T4) (5.5-11.0) ug/dL Free T3 pg/mL (2.77-5.27) pg/mL TSH 3rd Generation (0.46-4.68) mIU/mL Urine Color (YELLOW) Urine Appearance (CLEAR) Urine pH (4.7-8.0) Ur Specific Hobbs (1.005-1.035) Urine Protein (<30 mg/dL) mg/dL Urine Glucose (UA) (NEGATIVE) mg/dL Urine Ketones (NEGATIVE) mg/dL Urine Blood (NEGATIVE) Urine Nitrate (NEGATIVE) Urine Bilirubin (NEGATIVE) Urine Urobilinogen (<1 E.U./dL) E.U./dL Ur Leukocyte Esterase (NEGATIVE) Elsa/uL Urine RBC (0-2) /hpf Urine WBC (0-6) /hpf Ur Epithelial Cells (0-5) /hpf Urine Bacteria (NEG) Urine Opiates Screen (NEGATIVE) Urine Methadone Screen (NEGATIVE) Acetaminophen < 10.0 L (10.0-20.0) ug/ml Ur Barbiturates Screen (NEGATIVE) Ur Phencyclidine Scrn (NEGATIVE) Ur Amphetamines Screen (NEGATIVE) U Benzodiazepines Scrn (NEGATIVE) U Oth Cocaine Metabols (NEGATIVE) U Cannabinoids Screen (NEGATIVE) Alcohol, Quantitative (0-10) mg/dL 04/04/18 04/04/18 04/04/18 Range/Units 05:30 05:30 05:30 WBC (4.5-11.0) 10^3/uL RBC (3.5-6.1) 10^6/uL Hgb (14.0-18.0) g/dL Hct (42.0-52.0) % MCV (80.0-105.0) fl MCH (25.0-35.0) pg MCHC (31.0-37.0) g/dl RDW (11.5-14.5) % Plt Count (120.0-450.0) 10^3/uL MPV (7.0-11.0) fl Gran % (50.0-68.0) % Lymph % (Auto) (22.0-35.0) % [place] % (Auto) (1.0-6.0) % Eos % (Auto) (1.5-5.0) % Baso % (Auto) (0.0-3.0) % Gran # (1.4-6.5) Lymph # (Auto) (1.2-3.4) [place] # (Auto) (0.1-0.6) Eos # (Auto) (0.0-0.7) Baso # (Auto) (0.0-2.0) K/mm3 Differential Comment ESR (0.0-15.0) mm/hr Retic Count (0.5-1.5) % Haptoglobin (30.0-200.0) mg/dL PT 23.7 H (9.4-12.5) SECONDS INR 2.03 APTT 29.3 (25.1-36.5) Seconds D-Dimer, Quantitative (0-243) ng/mlDDU Sodium (132-148) mmol/L Potassium (3.6-5.0) mmol/L Chloride (98-107) mmol/L Carbon Dioxide (21-33) mmol/L Anion Gap (10-20) BUN (7-21) mg/dL Creatinine (0.8-1.5) mg/dl Est GFR ( Amer) Est GFR (Non-Af Amer) POC Glucose (mg/dL) (65-110) mg/dL Random Glucose (70-110) mg/dL Hemoglobin A1c 5.7 (4.2-6.5) % Calcium (8.4-10.5) mg/dL Phosphorus (2.5-4.5) mg/dL Magnesium (1.7-2.2) mg/dL Iron (45-180) ug/dL TIBC (261-462) ug/dL % Saturation (20-55) % Transferrin (206-381) mg/dL Total Bilirubin (0.2-1.3) mg/dL Direct Bilirubin (0.0-0.4) mg/dL GGT (8-78) U/L AST (17-59) U/L ALT (7-56) U/L Alkaline Phosphatase (38-126) U/L Ammonia (9-33) umol/L Lactate Dehydrogenase Total Creatine Kinase (35-230) U/L Troponin I ng/mL NT-Pro-B Natriuret Pep (0-450) pg/mL Total Protein (5.8-8.3) g/dL Albumin (3.0-4.8) g/dL Globulin gm/dL Albumin/Globulin Ratio (1.1-1.8) Triglycerides (35-160) mg/dL Cholesterol (130-200) mg/dL LDL Cholesterol Direct (0-129) mg/dL HDL Cholesterol (29-60) mg/dL Lipase (23-300) U/L Free T4 5.91 H (0.78-2.19) ng/dL Thyroxine (T4) 20.2 H (5.5-11.0) ug/dL Free T3 pg/mL (2.77-5.27) pg/mL TSH 3rd Generation < 0.02 L (0.46-4.68) mIU/mL Urine Color (YELLOW) Urine Appearance (CLEAR) Urine pH (4.7-8.0) Ur Specific [place] (1.005-1.035) Urine Protein (<30 mg/dL) mg/dL Urine Glucose (UA) (NEGATIVE) mg/dL Urine Ketones (NEGATIVE) mg/dL Urine Blood (NEGATIVE) Urine Nitrate (NEGATIVE) Urine Bilirubin (NEGATIVE) Urine Urobilinogen (<1 E.U./dL) E.U./dL Ur Leukocyte Esterase (NEGATIVE) Elsa/uL Urine RBC (0-2) /hpf Urine WBC (0-6) /hpf Ur Epithelial Cells (0-5) /hpf Urine Bacteria (NEG) Urine Opiates Screen (NEGATIVE) Urine Methadone Screen (NEGATIVE) Acetaminophen (10.0-20.0) ug/ml Ur Barbiturates Screen (NEGATIVE) Ur Phencyclidine Scrn (NEGATIVE) Ur Amphetamines Screen (NEGATIVE) U Benzodiazepines Scrn (NEGATIVE) U Oth Cocaine Metabols (NEGATIVE) U Cannabinoids Screen (NEGATIVE) Alcohol, Quantitative (0-10) mg/dL 04/04/18 04/04/18 04/04/18 Range/Units 05:30 05:30 05:30 WBC 4.5 D (4.5-11.0) 10^3/uL RBC 4.71 (3.5-6.1) 10^6/uL Hgb 11.8 L (14.0-18.0) g/dL Hct 36.2 L (42.0-52.0) % MCV 76.9 L (80.0-105.0) fl MCH 25.1 (25.0-35.0) pg MCHC 32.6 (31.0-37.0) g/dl RDW 13.3 (11.5-14.5) % Plt Count 165 (120.0-450.0) 10^3/uL MPV (7.0-11.0) fl Gran % 70.1 H (50.0-68.0) % Lymph % (Auto) 20.8 L (22.0-35.0) % [place] % (Auto) 9.1 H (1.0-6.0) % Eos % (Auto) 0.0 L (1.5-5.0) % Baso % (Auto) 0.0 (0.0-3.0) % Gran # 3.17 (1.4-6.5) Lymph # (Auto) 0.9 L (1.2-3.4) [place] # (Auto) 0.4 (0.1-0.6) Eos # (Auto) 0.0 (0.0-0.7) Baso # (Auto) 0.00 (0.0-2.0) K/mm3 Differential Comment ESR 7 (0.0-15.0) mm/hr Retic Count (0.5-1.5) % Haptoglobin 50.0 (30.0-200.0) mg/dL PT (9.4-12.5) SECONDS INR APTT (25.1-36.5) Seconds D-Dimer, Quantitative (0-243) ng/mlDDU Sodium 132 (132-148) mmol/L Potassium 5.7 H* D (3.6-5.0) mmol/L Chloride 101 (98-107) mmol/L Carbon Dioxide 22 (21-33) mmol/L Anion Gap 15 (10-20) BUN 17 (7-21) mg/dL Creatinine 0.8 (0.8-1.5) mg/dl Est GFR ( Amer) > 60 Est GFR (Non-Af Amer) > 60 POC Glucose (mg/dL) (65-110) mg/dL Random Glucose 132 H (70-110) mg/dL Hemoglobin A1c (4.2-6.5) % Calcium 8.7 (8.4-10.5) mg/dL Phosphorus 5.0 H (2.5-4.5) mg/dL Magnesium 1.8 (1.7-2.2) mg/dL Iron (45-180) ug/dL TIBC (261-462) ug/dL % Saturation (20-55) % Transferrin (206-381) mg/dL Total Bilirubin 3.1 H (0.2-1.3) mg/dL Direct Bilirubin 1.6 H (0.0-0.4) mg/dL GGT 149 H (8-78) U/L AST 613 H D (17-59) U/L ALT 330 H (7-56) U/L Alkaline Phosphatase 151 H (38-126) U/L Ammonia (9-33) umol/L Lactate Dehydrogenase Total Creatine Kinase (35-230) U/L Troponin I < 0.01 ng/mL NT-Pro-B Natriuret Pep (0-450) pg/mL Total Protein 6.9 (5.8-8.3) g/dL Albumin 3.4 (3.0-4.8) g/dL Globulin 3.5 gm/dL Albumin/Globulin Ratio 1.0 L (1.1-1.8) Triglycerides 69 (35-160) mg/dL Cholesterol 56 L (130-200) mg/dL LDL Cholesterol Direct 51 (0-129) mg/dL HDL Cholesterol 15 L (29-60) mg/dL Lipase (23-300) U/L Free T4 (0.78-2.19) ng/dL Thyroxine (T4) (5.5-11.0) ug/dL Free T3 pg/mL (2.77-5.27) pg/mL TSH 3rd Generation (0.46-4.68) mIU/mL Urine Color (YELLOW) Urine Appearance (CLEAR) Urine pH (4.7-8.0) Ur Specific [place] (1.005-1.035) Urine Protein (<30 mg/dL) mg/dL Urine Glucose (UA) (NEGATIVE) mg/dL Urine Ketones (NEGATIVE) mg/dL Urine Blood (NEGATIVE) Urine Nitrate (NEGATIVE) Urine Bilirubin (NEGATIVE) Urine Urobilinogen (<1 E.U./dL) E.U./dL Ur Leukocyte Esterase (NEGATIVE) Elsa/uL Urine RBC (0-2) /hpf Urine WBC (0-6) /hpf Ur Epithelial Cells (0-5) /hpf Urine Bacteria (NEG) Urine Opiates Screen (NEGATIVE) Urine Methadone Screen (NEGATIVE) Acetaminophen (10.0-20.0) ug/ml Ur Barbiturates Screen (NEGATIVE) Ur Phencyclidine Scrn (NEGATIVE) Ur Amphetamines Screen (NEGATIVE) U Benzodiazepines Scrn (NEGATIVE) U Oth Cocaine Metabols (NEGATIVE) U Cannabinoids Screen (NEGATIVE) Alcohol, Quantitative (0-10) mg/dL 04/04/18 04/04/18 04/03/18 Range/Units 01:35 01:35 22:24 WBC (4.5-11.0) 10^3/uL RBC (3.5-6.1) 10^6/uL Hgb (14.0-18.0) g/dL Hct (42.0-52.0) % MCV (80.0-105.0) fl MCH (25.0-35.0) pg MCHC (31.0-37.0) g/dl RDW (11.5-14.5) % Plt Count (120.0-450.0) 10^3/uL MPV (7.0-11.0) fl Gran % (50.0-68.0) % Lymph % (Auto) (22.0-35.0) % [place] % (Auto) (1.0-6.0) % Eos % (Auto) (1.5-5.0) % Baso % (Auto) (0.0-3.0) % Gran # (1.4-6.5) Lymph # (Auto) (1.2-3.4) [place] # (Auto) (0.1-0.6) Eos # (Auto) (0.0-0.7) Baso # (Auto) (0.0-2.0) K/mm3 Differential Comment ESR (0.0-15.0) mm/hr Retic Count (0.5-1.5) % Haptoglobin (30.0-200.0) mg/dL PT (9.4-12.5) SECONDS INR APTT (25.1-36.5) Seconds D-Dimer, Quantitative (0-243) ng/mlDDU Sodium (132-148) mmol/L Potassium (3.6-5.0) mmol/L Chloride (98-107) mmol/L Carbon Dioxide (21-33) mmol/L Anion Gap (10-20) BUN (7-21) mg/dL Creatinine (0.8-1.5) mg/dl Est GFR ( Amer) Est GFR (Non-Af Amer) POC Glucose (mg/dL) (65-110) mg/dL Random Glucose (70-110) mg/dL Hemoglobin A1c (4.2-6.5) % Calcium (8.4-10.5) mg/dL Phosphorus (2.5-4.5) mg/dL Magnesium (1.7-2.2) mg/dL Iron (45-180) ug/dL TIBC (261-462) ug/dL % Saturation (20-55) % Transferrin (206-381) mg/dL Total Bilirubin (0.2-1.3) mg/dL Direct Bilirubin (0.0-0.4) mg/dL GGT (8-78) U/L AST (17-59) U/L ALT (7-56) U/L Alkaline Phosphatase (38-126) U/L Ammonia < 9 L (9-33) umol/L Lactate Dehydrogenase Total Creatine Kinase (35-230) U/L Troponin I ng/mL NT-Pro-B Natriuret Pep (0-450) pg/mL Total Protein (5.8-8.3) g/dL Albumin (3.0-4.8) g/dL Globulin gm/dL Albumin/Globulin Ratio (1.1-1.8) Triglycerides (35-160) mg/dL Cholesterol (130-200) mg/dL LDL Cholesterol Direct (0-129) mg/dL HDL Cholesterol (29-60) mg/dL Lipase (23-300) U/L Free T4 (0.78-2.19) ng/dL Thyroxine (T4) (5.5-11.0) ug/dL Free T3 pg/mL (2.77-5.27) pg/mL TSH 3rd Generation (0.46-4.68) mIU/mL Urine Color Yellow (YELLOW) Urine Appearance Clear (CLEAR) Urine pH 6.5 (4.7-8.0) Ur Specific Hobbs <= 1.005 (1.005-1.035) Urine Protein 100 H (<30 mg/dL) mg/dL Urine Glucose (UA) Negative (NEGATIVE) mg/dL Urine Ketones Negative (NEGATIVE) mg/dL Urine Blood Negative (NEGATIVE) Urine Nitrate Negative (NEGATIVE) Urine Bilirubin Small H (NEGATIVE) Urine Urobilinogen 4.0 H (<1 E.U./dL) E.U./dL Ur Leukocyte Esterase Negative (NEGATIVE) Elsa/uL Urine RBC 0 - 2 (0-2) /hpf Urine WBC 0 - 2 (0-6) /hpf Ur Epithelial Cells 0 - 2 (0-5) /hpf Urine Bacteria Rare (NEG) Urine Opiates Screen Negative (NEGATIVE) Urine Methadone Screen Negative (NEGATIVE) Acetaminophen (10.0-20.0) ug/ml Ur Barbiturates Screen Negative (NEGATIVE) Ur Phencyclidine Scrn Negative (NEGATIVE) Ur Amphetamines Screen Negative (NEGATIVE) U Benzodiazepines Scrn Negative (NEGATIVE) U Oth Cocaine Metabols Negative (NEGATIVE) U Cannabinoids Screen Positive H (NEGATIVE) Alcohol, Quantitative (0-10) mg/dL 04/03/18 04/03/18 04/03/18 Range/Units 22:24 22:02 22:02 WBC (4.5-11.0) 10^3/uL RBC (3.5-6.1) 10^6/uL Hgb (14.0-18.0) g/dL Hct (42.0-52.0) % MCV (80.0-105.0) fl MCH (25.0-35.0) pg MCHC (31.0-37.0) g/dl RDW (11.5-14.5) % Plt Count (120.0-450.0) 10^3/uL MPV (7.0-11.0) fl Gran % (50.0-68.0) % Lymph % (Auto) (22.0-35.0) % [place] % (Auto) (1.0-6.0) % Eos % (Auto) (1.5-5.0) % Baso % (Auto) (0.0-3.0) % Gran # (1.4-6.5) Lymph # (Auto) (1.2-3.4) [place] # (Auto) (0.1-0.6) Eos # (Auto) (0.0-0.7) Baso # (Auto) (0.0-2.0) K/mm3 Differential Comment ESR (0.0-15.0) mm/hr Retic Count (0.5-1.5) % Haptoglobin (30.0-200.0) mg/dL PT (9.4-12.5) SECONDS INR APTT (25.1-36.5) Seconds D-Dimer, Quantitative (0-243) ng/mlDDU Sodium (132-148) mmol/L Potassium (3.6-5.0) mmol/L Chloride (98-107) mmol/L Carbon Dioxide (21-33) mmol/L Anion Gap (10-20) BUN (7-21) mg/dL Creatinine (0.8-1.5) mg/dl Est GFR ( Amer) Est GFR (Non-Af Amer) POC Glucose (mg/dL) (65-110) mg/dL Random Glucose (70-110) mg/dL Hemoglobin A1c (4.2-6.5) % Calcium (8.4-10.5) mg/dL Phosphorus (2.5-4.5) mg/dL Magnesium (1.7-2.2) mg/dL Iron 34 L (45-180) ug/dL TIBC 397 (261-462) ug/dL % Saturation 8 L (20-55) % Transferrin 312.10 (206-381) mg/dL Total Bilirubin (0.2-1.3) mg/dL Direct Bilirubin (0.0-0.4) mg/dL GGT (8-78) U/L AST (17-59) U/L ALT (7-56) U/L Alkaline Phosphatase (38-126) U/L Ammonia (9-33) umol/L Lactate Dehydrogenase Total Creatine Kinase (35-230) U/L Troponin I ng/mL NT-Pro-B Natriuret Pep (0-450) pg/mL Total Protein (5.8-8.3) g/dL Albumin (3.0-4.8) g/dL Globulin gm/dL Albumin/Globulin Ratio (1.1-1.8) Triglycerides (35-160) mg/dL Cholesterol (130-200) mg/dL LDL Cholesterol Direct (0-129) mg/dL HDL Cholesterol (29-60) mg/dL Lipase (23-300) U/L Free T4 (0.78-2.19) ng/dL Thyroxine (T4) (5.5-11.0) ug/dL Free T3 pg/mL (2.77-5.27) pg/mL TSH 3rd Generation (0.46-4.68) mIU/mL Urine Color (YELLOW) Urine Appearance (CLEAR) Urine pH (4.7-8.0) Ur Specific [place] (1.005-1.035) Urine Protein (<30 mg/dL) mg/dL Urine Glucose (UA) (NEGATIVE) mg/dL Urine Ketones (NEGATIVE) mg/dL Urine Blood (NEGATIVE) Urine Nitrate (NEGATIVE) Urine Bilirubin (NEGATIVE) Urine Urobilinogen (<1 E.U./dL) E.U./dL Ur Leukocyte Esterase (NEGATIVE) Elsa/uL Urine RBC (0-2) /hpf Urine WBC (0-6) /hpf Ur Epithelial Cells (0-5) /hpf Urine Bacteria (NEG) Urine Opiates Screen (NEGATIVE) Urine Methadone Screen (NEGATIVE) Acetaminophen (10.0-20.0) ug/ml Ur Barbiturates Screen (NEGATIVE) Ur Phencyclidine Scrn (NEGATIVE) Ur Amphetamines Screen (NEGATIVE) U Benzodiazepines Scrn (NEGATIVE) U Oth Cocaine Metabols (NEGATIVE) U Cannabinoids Screen (NEGATIVE) Alcohol, Quantitative < 10 (0-10) mg/dL 04/03/18 04/03/18 04/03/18 Range/Units 20:33 18:46 18:46 WBC (4.5-11.0) 10^3/uL RBC (3.5-6.1) 10^6/uL Hgb (14.0-18.0) g/dL Hct (42.0-52.0) % MCV (80.0-105.0) fl MCH (25.0-35.0) pg MCHC (31.0-37.0) g/dl RDW (11.5-14.5) % Plt Count (120.0-450.0) 10^3/uL MPV (7.0-11.0) fl Gran % (50.0-68.0) % Lymph % (Auto) (22.0-35.0) % [place] % (Auto) (1.0-6.0) % Eos % (Auto) (1.5-5.0) % Baso % (Auto) (0.0-3.0) % Gran # (1.4-6.5) Lymph # (Auto) (1.2-3.4) [place] # (Auto) (0.1-0.6) Eos # (Auto) (0.0-0.7) Baso # (Auto) (0.0-2.0) K/mm3 Differential Comment See pathology review ESR (0.0-15.0) mm/hr Retic Count 1.56 H (0.5-1.5) % Haptoglobin (30.0-200.0) mg/dL PT (9.4-12.5) SECONDS INR APTT (25.1-36.5) Seconds D-Dimer, Quantitative (0-243) ng/mlDDU Sodium (132-148) mmol/L Potassium (3.6-5.0) mmol/L Chloride (98-107) mmol/L Carbon Dioxide (21-33) mmol/L Anion Gap (10-20) BUN (7-21) mg/dL Creatinine (0.8-1.5) mg/dl Est GFR ( Amer) Est GFR (Non-Af Amer) POC Glucose (mg/dL) 102 (65-110) mg/dL Random Glucose (70-110) mg/dL Hemoglobin A1c (4.2-6.5) % Calcium (8.4-10.5) mg/dL Phosphorus (2.5-4.5) mg/dL Magnesium (1.7-2.2) mg/dL Iron (45-180) ug/dL TIBC (261-462) ug/dL % Saturation (20-55) % Transferrin (206-381) mg/dL Total Bilirubin (0.2-1.3) mg/dL Direct Bilirubin (0.0-0.4) mg/dL GGT (8-78) U/L AST (17-59) U/L ALT (7-56) U/L Alkaline Phosphatase (38-126) U/L Ammonia (9-33) umol/L Lactate Dehydrogenase Total Creatine Kinase (35-230) U/L Troponin I ng/mL NT-Pro-B Natriuret Pep (0-450) pg/mL Total Protein (5.8-8.3) g/dL Albumin (3.0-4.8) g/dL Globulin gm/dL Albumin/Globulin Ratio (1.1-1.8) Triglycerides (35-160) mg/dL Cholesterol (130-200) mg/dL LDL Cholesterol Direct (0-129) mg/dL HDL Cholesterol (29-60) mg/dL Lipase (23-300) U/L Free T4 (0.78-2.19) ng/dL Thyroxine (T4) (5.5-11.0) ug/dL Free T3 pg/mL (2.77-5.27) pg/mL TSH 3rd Generation (0.46-4.68) mIU/mL Urine Color (YELLOW) Urine Appearance (CLEAR) Urine pH (4.7-8.0) Ur Specific Hob[place] (1.005-1.035) Urine Protein (<30 mg/dL) mg/dL Urine Glucose (UA) (NEGATIVE) mg/dL Urine Ketones (NEGATIVE) mg/dL Urine Blood (NEGATIVE) Urine Nitrate (NEGATIVE) Urine Bilirubin (NEGATIVE) Urine Urobilinogen (<1 E.U./dL) E.U./dL Ur Leukocyte Esterase (NEGATIVE) Elsa/uL Urine RBC (0-2) /hpf Urine WBC (0-6) /hpf Ur Epithelial Cells (0-5) /hpf Urine Bacteria (NEG) Urine Opiates Screen (NEGATIVE) Urine Methadone Screen (NEGATIVE) Acetaminophen (10.0-20.0) ug/ml Ur Barbiturates Screen (NEGATIVE) Ur Phencyclidine Scrn (NEGATIVE) Ur Amphetamines Screen (NEGATIVE) U Benzodiazepines Scrn (NEGATIVE) U Oth Cocaine Metabols (NEGATIVE) U Cannabinoids Screen (NEGATIVE) Alcohol, Quantitative (0-10) mg/dL 04/03/18 04/03/18 04/03/18 Range/Units 18:46 18:46 18:46 WBC 7.0 (4.5-11.0) 10^3/uL RBC 4.52 (3.5-6.1) 10^6/uL Hgb 11.6 L (14.0-18.0) g/dL Hct 34.7 L (42.0-52.0) % MCV 76.8 L (80.0-105.0) fl MCH 25.7 (25.0-35.0) pg MCHC 33.4 (31.0-37.0) g/dl RDW 13.3 (11.5-14.5) % Plt Count 164 (120.0-450.0) 10^3/uL MPV 12.1 H (7.0-11.0) fl Gran % 58.5 (50.0-68.0) % Lymph % (Auto) 28.9 (22.0-35.0) % [place] % (Auto) 12.1 H (1.0-6.0) % Eos % (Auto) 0.4 L (1.5-5.0) % Baso % (Auto) 0.1 (0.0-3.0) % Gran # 4.06 (1.4-6.5) Lymph # (Auto) 2.0 (1.2-3.4) [place] # (Auto) 0.8 H (0.1-0.6) Eos # (Auto) 0.0 (0.0-0.7) Baso # (Auto) 0.01 (0.0-2.0) K/mm3 Differential Comment ESR (0.0-15.0) mm/hr Retic Count (0.5-1.5) % Haptoglobin (30.0-200.0) mg/dL PT (9.4-12.5) SECONDS INR APTT (25.1-36.5) Seconds D-Dimer, Quantitative (0-243) ng/mlDDU Sodium (132-148) mmol/L Potassium (3.6-5.0) mmol/L Chloride (98-107) mmol/L Carbon Dioxide (21-33) mmol/L Anion Gap (10-20) BUN (7-21) mg/dL Creatinine (0.8-1.5) mg/dl Est GFR ( Amer) Est GFR (Non-Af Amer) POC Glucose (mg/dL) (65-110) mg/dL Random Glucose (70-110) mg/dL Hemoglobin A1c (4.2-6.5) % Calcium (8.4-10.5) mg/dL Phosphorus (2.5-4.5) mg/dL Magnesium (1.7-2.2) mg/dL Iron (45-180) ug/dL TIBC (261-462) ug/dL % Saturation (20-55) % Transferrin (206-381) mg/dL Total Bilirubin (0.2-1.3) mg/dL Direct Bilirubin (0.0-0.4) mg/dL GGT (8-78) U/L AST (17-59) U/L ALT (7-56) U/L Alkaline Phosphatase (38-126) U/L Ammonia (9-33) umol/L Lactate Dehydrogenase Total Creatine Kinase (35-230) U/L Troponin I ng/mL NT-Pro-B Natriuret Pep 4780 H (0-450) pg/mL Total Protein (5.8-8.3) g/dL Albumin (3.0-4.8) g/dL Globulin gm/dL Albumin/Globulin Ratio (1.1-1.8) Triglycerides (35-160) mg/dL Cholesterol (130-200) mg/dL LDL Cholesterol Direct (0-129) mg/dL HDL Cholesterol (29-60) mg/dL Lipase (23-300) U/L Free T4 6.60 H (0.78-2.19) ng/dL Thyroxine (T4) (5.5-11.0) ug/dL Free T3 pg/mL > 22.80 H (2.77-5.27) pg/mL TSH 3rd Generation < 0.02 L (0.46-4.68) mIU/mL Urine Color (YELLOW) Urine Appearance (CLEAR) Urine pH (4.7-8.0) Ur Specific [place] (1.005-1.035) Urine Protein (<30 mg/dL) mg/dL Urine Glucose (UA) (NEGATIVE) mg/dL Urine Ketones (NEGATIVE) mg/dL Urine Blood (NEGATIVE) Urine Nitrate (NEGATIVE) Urine Bilirubin (NEGATIVE) Urine Urobilinogen (<1 E.U./dL) E.U./dL Ur Leukocyte Esterase (NEGATIVE) Elsa/uL Urine RBC (0-2) /hpf Urine WBC (0-6) /hpf Ur Epithelial Cells (0-5) /hpf Urine Bacteria (NEG) Urine Opiates Screen (NEGATIVE) Urine Methadone Screen (NEGATIVE) Acetaminophen (10.0-20.0) ug/ml Ur Barbiturates Screen (NEGATIVE) Ur Phencyclidine Scrn (NEGATIVE) Ur Amphetamines Screen (NEGATIVE) U Benzodiazepines Scrn (NEGATIVE) U Oth Cocaine Metabols (NEGATIVE) U Cannabinoids Screen (NEGATIVE) Alcohol, Quantitative (0-10) mg/dL 04/03/18 04/03/18 Range/Units 18:46 18:46 WBC (4.5-11.0) 10^3/uL RBC (3.5-6.1) 10^6/uL Hgb (14.0-18.0) g/dL Hct (42.0-52.0) % MCV (80.0-105.0) fl MCH (25.0-35.0) pg MCHC (31.0-37.0) g/dl RDW (11.5-14.5) % Plt Count (120.0-450.0) 10^3/uL MPV (7.0-11.0) fl Gran % (50.0-68.0) % Lymph % (Auto) (22.0-35.0) % [place] % (Auto) (1.0-6.0) % Eos % (Auto) (1.5-5.0) % Baso % (Auto) (0.0-3.0) % Gran # (1.4-6.5) Lymph # (Auto) (1.2-3.4) [place] # (Auto) (0.1-0.6) Eos # (Auto) (0.0-0.7) Baso # (Auto) (0.0-2.0) K/mm3 Differential Comment ESR (0.0-15.0) mm/hr Retic Count (0.5-1.5) % Haptoglobin (30.0-200.0) mg/dL PT 20.1 H (9.4-12.5) SECONDS INR 1.74 APTT 35.0 (25.1-36.5) Seconds D-Dimer, Quantitative 366 H (0-243) ng/mlDDU Sodium 133 (132-148) mmol/L Potassium 4.3 (3.6-5.0) mmol/L Chloride 101 (98-107) mmol/L Carbon Dioxide 24 (21-33) mmol/L Anion Gap 12 (10-20) BUN 12 (7-21) mg/dL Creatinine 0.6 L (0.8-1.5) mg/dl Est GFR ( Amer) > 60 Est GFR (Non-Af Amer) > 60 POC Glucose (mg/dL) (65-110) mg/dL Random Glucose 122 H (70-110) mg/dL Hemoglobin A1c (4.2-6.5) % Calcium 8.6 (8.4-10.5) mg/dL Phosphorus (2.5-4.5) mg/dL Magnesium 1.6 L (1.7-2.2) mg/dL Iron (45-180) ug/dL TIBC (261-462) ug/dL % Saturation (20-55) % Transferrin (206-381) mg/dL Total Bilirubin 2.8 H (0.2-1.3) mg/dL Direct Bilirubin (0.0-0.4) mg/dL GGT (8-78) U/L AST 138 H (17-59) U/L ALT 128 H (7-56) U/L Alkaline Phosphatase 145 H (38-126) U/L Ammonia (9-33) umol/L Lactate Dehydrogenase Total Creatine Kinase (35-230) U/L Troponin I < 0.01 ng/mL NT-Pro-B Natriuret Pep (0-450) pg/mL Total Protein 6.8 (5.8-8.3) g/dL Albumin 3.3 (3.0-4.8) g/dL Globulin 3.5 gm/dL Albumin/Globulin Ratio 0.9 L (1.1-1.8) Triglycerides (35-160) mg/dL Cholesterol (130-200) mg/dL LDL Cholesterol Direct (0-129) mg/dL HDL Cholesterol (29-60) mg/dL Lipase 124 (23-300) U/L Free T4 (0.78-2.19) ng/dL Thyroxine (T4) (5.5-11.0) ug/dL Free T3 pg/mL (2.77-5.27) pg/mL TSH 3rd Generation (0.46-4.68) mIU/mL Urine Color (YELLOW) Urine Appearance (CLEAR) Urine pH (4.7-8.0) Ur Specific Hob[place] (1.005-1.035) Urine Protein (<30 mg/dL) mg/dL Urine Glucose (UA) (NEGATIVE) mg/dL Urine Ketones (NEGATIVE) mg/dL Urine Blood (NEGATIVE) Urine Nitrate (NEGATIVE) Urine Bilirubin (NEGATIVE) Urine Urobilinogen (<1 E.U./dL) E.U./dL Ur Leukocyte Esterase (NEGATIVE) Elsa/uL Urine RBC (0-2) /hpf Urine WBC (0-6) /hpf Ur Epithelial Cells (0-5) /hpf Urine Bacteria (NEG) Urine Opiates Screen (NEGATIVE) Urine Methadone Screen (NEGATIVE) Acetaminophen (10.0-20.0) ug/ml Ur Barbiturates Screen (NEGATIVE) Ur Phencyclidine Scrn (NEGATIVE) Ur Amphetamines Screen (NEGATIVE) U Benzodiazepines Scrn (NEGATIVE) U Oth Cocaine Metabols (NEGATIVE) U Cannabinoids Screen (NEGATIVE) Alcohol, Quantitative (0-10) mg/dL Laboratory Results - last 24 hr 04/03/18 04/03/18 04/03/18 18:46 18:46 18:46 WBC 7.0 RBC 4.52 Hgb 11.6 L Hct 34.7 L MCV 76.8 L MCH 25.7 MCHC 33.4 RDW 13.3 Plt Count 164 MPV 12.1 H Gran % 58.5 Lymph % (Auto) 28.9 [place] % (Auto) 12.1 H Eos % (Auto) 0.4 L Baso % (Auto) 0.1 Gran # 4.06 Lymph # (Auto) 2.0 [place] # (Auto) 0.8 H Eos # (Auto) 0.0 Baso # (Auto) 0.01 Differential Comment ESR Retic Count Haptoglobin PT 20.1 H INR 1.74 APTT 35.0 D-Dimer, Quantitative 366 H Sodium 133 Potassium 4.3 Chloride 101 Carbon Dioxide 24 Anion Gap 12 BUN 12 Creatinine 0.6 L Est GFR ( Amer) > 60 Est GFR (Non-Af Amer) > 60 POC Glucose (mg/dL) Random Glucose 122 H Hemoglobin A1c Calcium 8.6 Phosphorus Magnesium 1.6 L Iron TIBC % Saturation Transferrin Total Bilirubin 2.8 H Direct Bilirubin GGT AST 138 H ALT 128 H Alkaline Phosphatase 145 H Ammonia Lactate Dehydrogenase Total Creatine Kinase Troponin I < 0.01 NT-Pro-B Natriuret Pep Total Protein 6.8 Albumin 3.3 Globulin 3.5 Albumin/Globulin Ratio 0.9 L Triglycerides Cholesterol LDL Cholesterol Direct HDL Cholesterol Lipase 124 Free T4 Thyroxine (T4) Free T3 pg/mL TSH 3rd Generation Urine Color Urine Appearance Urine pH Ur Specific [place] Urine Protein Urine Glucose (UA) Urine Ketones Urine Blood Urine Nitrate Urine Bilirubin Urine Urobilinogen Ur Leukocyte Esterase Urine RBC Urine WBC Ur Epithelial Cells Urine Bacteria Urine Opiates Screen Urine Methadone Screen Acetaminophen Ur Barbiturates Screen Ur Phencyclidine Scrn Ur Amphetamines Screen U Benzodiazepines Scrn U Oth Cocaine Metabols U Cannabinoids Screen Alcohol, Quantitative 04/03/18 04/03/18 04/03/18 18:46 18:46 18:46 WBC RBC Hgb Hct MCV MCH MCHC RDW Plt Count MPV Gran % Lymph % (Auto) [place] % (Auto) Eos % (Auto) Baso % (Auto) Gran # Lymph # (Auto) [place] # (Auto) Eos # (Auto) Baso # (Auto) Differential Comment ESR Retic Count 1.56 H Haptoglobin PT INR APTT D-Dimer, Quantitative Sodium Potassium Chloride Carbon Dioxide Anion Gap BUN Creatinine Est GFR ( Amer) Est GFR (Non-Af Amer) POC Glucose (mg/dL) Random Glucose Hemoglobin A1c Calcium Phosphorus Magnesium Iron TIBC % Saturation Transferrin Total Bilirubin Direct Bilirubin GGT AST ALT Alkaline Phosphatase Ammonia Lactate Dehydrogenase Total Creatine Kinase Troponin I NT-Pro-B Natriuret Pep 4780 H Total Protein Albumin Globulin Albumin/Globulin Ratio Triglycerides Cholesterol LDL Cholesterol Direct HDL Cholesterol Lipase Free T4 6.60 H Thyroxine (T4) Free T3 pg/mL > 22.80 H TSH 3rd Generation < 0.02 L Urine Color Urine Appearance Urine pH Ur Specific [place] Urine Protein Urine Glucose (UA) Urine Ketones Urine Blood Urine Nitrate Urine Bilirubin Urine Urobilinogen Ur Leukocyte Esterase Urine RBC Urine WBC Ur Epithelial Cells Urine Bacteria Urine Opiates Screen Urine Methadone Screen Acetaminophen Ur Barbiturates Screen Ur Phencyclidine Scrn Ur Amphetamines Screen U Benzodiazepines Scrn U Oth Cocaine Metabols U Cannabinoids Screen Alcohol, Quantitative 04/03/18 04/03/18 04/03/18 18:46 20:33 22:02 WBC RBC Hgb Hct MCV MCH MCHC RDW Plt Count MPV Gran % Lymph % (Auto) [place] % (Auto) Eos % (Auto) Baso % (Auto) Gran # Lymph # (Auto) [place] # (Auto) Eos # (Auto) Baso # (Auto) Differential Comment See pathology review ESR Retic Count Haptoglobin PT INR APTT D-Dimer, Quantitative Sodium Potassium Chloride Carbon Dioxide Anion Gap BUN Creatinine Est GFR ( Amer) Est GFR (Non-Af Amer) POC Glucose (mg/dL) 102 Random Glucose Hemoglobin A1c Calcium Phosphorus Magnesium Iron 34 L TIBC 397 % Saturation 8 L Transferrin Total Bilirubin Direct Bilirubin GGT AST ALT Alkaline Phosphatase Ammonia Lactate Dehydrogenase Total Creatine Kinase Troponin I NT-Pro-B Natriuret Pep Total Protein Albumin Globulin Albumin/Globulin Ratio Triglycerides Cholesterol LDL Cholesterol Direct HDL Cholesterol Lipase Free T4 Thyroxine (T4) Free T3 pg/mL TSH 3rd Generation Urine Color Urine Appearance Urine pH Ur Specific [place] Urine Protein Urine Glucose (UA) Urine Ketones Urine Blood Urine Nitrate Urine Bilirubin Urine Urobilinogen Ur Leukocyte Esterase Urine RBC Urine WBC Ur Epithelial Cells Urine Bacteria Urine Opiates Screen Urine Methadone Screen Acetaminophen Ur Barbiturates Screen Ur Phencyclidine Scrn Ur Amphetamines Screen U Benzodiazepines Scrn U Oth Cocaine Metabols U Cannabinoids Screen Alcohol, Quantitative 04/03/18 04/03/18 04/03/18 22:02 22:24 22:24 WBC RBC Hgb Hct MCV MCH MCHC RDW Plt Count MPV Gran % Lymph % (Auto) [place] % (Auto) Eos % (Auto) Baso % (Auto) Gran # Lymph # (Auto) [place] # (Auto) Eos # (Auto) Baso # (Auto) Differential Comment ESR Retic Count Haptoglobin PT INR APTT D-Dimer, Quantitative Sodium Potassium Chloride Carbon Dioxide Anion Gap BUN Creatinine Est GFR ( Amer) Est GFR (Non-Af Amer) POC Glucose (mg/dL) Random Glucose Hemoglobin A1c Calcium Phosphorus Magnesium Iron TIBC % Saturation Transferrin 312.10 Total Bilirubin Direct Bilirubin GGT AST ALT Alkaline Phosphatase Ammonia < 9 L Lactate Dehydrogenase Total Creatine Kinase Troponin I NT-Pro-B Natriuret Pep Total Protein Albumin Globulin Albumin/Globulin Ratio Triglycerides Cholesterol LDL Cholesterol Direct HDL Cholesterol Lipase Free T4 Thyroxine (T4) Free T3 pg/mL TSH 3rd Generation Urine Color Urine Appearance Urine pH Ur Specific [place] Urine Protein Urine Glucose (UA) Urine Ketones Urine Blood Urine Nitrate Urine Bilirubin Urine Urobilinogen Ur Leukocyte Esterase Urine RBC Urine WBC Ur Epithelial Cells Urine Bacteria Urine Opiates Screen Urine Methadone Screen Acetaminophen Ur Barbiturates Screen Ur Phencyclidine Scrn Ur Amphetamines Screen U Benzodiazepines Scrn U Oth Cocaine Metabols U Cannabinoids Screen Alcohol, Quantitative < 10 04/04/18 04/04/18 04/04/18 01:35 01:35 05:30 WBC RBC Hgb Hct MCV MCH MCHC RDW Plt Count MPV Gran % Lymph % (Auto) [place] % (Auto) Eos % (Auto) Baso % (Auto) Gran # Lymph # (Auto) [place] # (Auto) Eos # (Auto) Baso # (Auto) Differential Comment ESR Retic Count Haptoglobin 50.0 PT INR APTT D-Dimer, Quantitative Sodium Potassium Chloride Carbon Dioxide Anion Gap BUN Creatinine Est GFR ( Amer) Est GFR (Non-Af Amer) POC Glucose (mg/dL) Random Glucose Hemoglobin A1c Calcium Phosphorus Magnesium Iron TIBC % Saturation Transferrin Total Bilirubin Direct Bilirubin GGT AST ALT Alkaline Phosphatase Ammonia Lactate Dehydrogenase Total Creatine Kinase Troponin I NT-Pro-B Natriuret Pep Total Protein Albumin Globulin Albumin/Globulin Ratio Triglycerides Cholesterol LDL Cholesterol Direct HDL Cholesterol Lipase Free T4 Thyroxine (T4) Free T3 pg/mL TSH 3rd Generation Urine Color Yellow Urine Appearance Clear Urine pH 6.5 Ur Specific Hob[place] <= 1.005 Urine Protein 100 H Urine Glucose (UA) Negative Urine Ketones Negative Urine Blood Negative Urine Nitrate Negative Urine Bilirubin Small H Urine Urobilinogen 4.0 H Ur Leukocyte Esterase Negative Urine RBC 0 - 2 Urine WBC 0 - 2 Ur Epithelial Cells 0 - 2 Urine Bacteria Rare Urine Opiates Screen Negative Urine Methadone Screen Negative Acetaminophen Ur Barbiturates Screen Negative Ur Phencyclidine Scrn Negative Ur Amphetamines Screen Negative U Benzodiazepines Scrn Negative U Oth Cocaine Metabols Negative U Cannabinoids Screen Positive H Alcohol, Quantitative 04/04/18 04/04/18 04/04/18 05:30 05:30 05:30 WBC 4.5 D RBC 4.71 Hgb 11.8 L Hct 36.2 L MCV 76.9 L MCH 25.1 MCHC 32.6 RDW 13.3 Plt Count 165 MPV Gran % 70.1 H Lymph % (Auto) 20.8 L [place] % (Auto) 9.1 H Eos % (Auto) 0.0 L Baso % (Auto) 0.0 Gran # 3.17 Lymph # (Auto) 0.9 L [place] # (Auto) 0.4 Eos # (Auto) 0.0 Baso # (Auto) 0.00 Differential Comment ESR 7 Retic Count Haptoglobin PT 23.7 H INR 2.03 APTT 29.3 D-Dimer, Quantitative Sodium 132 Potassium 5.7 H* D Chloride 101 Carbon Dioxide 22 Anion Gap 15 BUN 17 Creatinine 0.8 Est GFR ( Amer) > 60 Est GFR (Non-Af Amer) > 60 POC Glucose (mg/dL) Random Glucose 132 H Hemoglobin A1c Calcium 8.7 Phosphorus 5.0 H Magnesium 1.8 Iron TIBC % Saturation Transferrin Total Bilirubin 3.1 H Direct Bilirubin 1.6 H GGT 149 H AST 613 H D ALT 330 H Alkaline Phosphatase 151 H Ammonia Lactate Dehydrogenase Total Creatine Kinase Troponin I < 0.01 NT-Pro-B Natriuret Pep Total Protein 6.9 Albumin 3.4 Globulin 3.5 Albumin/Globulin Ratio 1.0 L Triglycerides 69 Cholesterol 56 L LDL Cholesterol Direct 51 HDL Cholesterol 15 L Lipase Free T4 Thyroxine (T4) Free T3 pg/mL TSH 3rd Generation Urine Color Urine Appearance Urine pH Ur Specific [place] Urine Protein Urine Glucose (UA) Urine Ketones Urine Blood Urine Nitrate Urine Bilirubin Urine Urobilinogen Ur Leukocyte Esterase Urine RBC Urine WBC Ur Epithelial Cells Urine Bacteria Urine Opiates Screen Urine Methadone Screen Acetaminophen Ur Barbiturates Screen Ur Phencyclidine Scrn Ur Amphetamines Screen U Benzodiazepines Scrn U Oth Cocaine Metabols U Cannabinoids Screen Alcohol, Quantitative 04/04/18 04/04/18 04/04/18 05:30 05:30 05:30 WBC RBC Hgb Hct MCV MCH MCHC RDW Plt Count MPV Gran % Lymph % (Auto) [place] % (Auto) Eos % (Auto) Baso % (Auto) Gran # Lymph # (Auto) [place] # (Auto) Eos # (Auto) Baso # (Auto) Differential Comment ESR Retic Count Haptoglobin PT INR APTT D-Dimer, Quantitative Sodium Potassium Chloride Carbon Dioxide Anion Gap BUN Creatinine Est GFR ( Amer) Est GFR (Non-Af Amer) POC Glucose (mg/dL) Random Glucose Hemoglobin A1c 5.7 Calcium Phosphorus Magnesium Iron TIBC % Saturation Transferrin Total Bilirubin Direct Bilirubin GGT AST ALT Alkaline Phosphatase Ammonia Lactate Dehydrogenase TNP Total Creatine Kinase 55 Troponin I TNP NT-Pro-B Natriuret Pep Total Protein Albumin Globulin Albumin/Globulin Ratio Triglycerides Cholesterol LDL Cholesterol Direct HDL Cholesterol Lipase Free T4 5.91 H Thyroxine (T4) 20.2 H Free T3 pg/mL TSH 3rd Generation < 0.02 L Urine Color Urine Appearance Urine pH Ur Specific [place] Urine Protein Urine Glucose (UA) Urine Ketones Urine Blood Urine Nitrate Urine Bilirubin Urine Urobilinogen Ur Leukocyte Esterase Urine RBC Urine WBC Ur Epithelial Cells Urine Bacteria Urine Opiates Screen Urine Methadone Screen Acetaminophen Ur Barbiturates Screen Ur Phencyclidine Scrn Ur Amphetamines Screen U Benzodiazepines Scrn U Oth Cocaine Metabols U Cannabinoids Screen Alcohol, Quantitative 04/04/18 04/04/18 06:00 06:00 WBC RBC Hgb Hct MCV MCH MCHC RDW Plt Count MPV Gran % Lymph % (Auto) [place] % (Auto) Eos % (Auto) Baso % (Auto) Gran # Lymph # (Auto) [place] # (Auto) Eos # (Auto) Baso # (Auto) Differential Comment ESR Retic Count Haptoglobin PT INR APTT D-Dimer, Quantitative Sodium Potassium Chloride Carbon Dioxide Anion Gap BUN Creatinine Est GFR ( Amer) Est GFR (Non-Af Amer) POC Glucose (mg/dL) Random Glucose Hemoglobin A1c Calcium Phosphorus Magnesium Iron TIBC % Saturation Transferrin Total Bilirubin Direct Bilirubin GGT AST ALT Alkaline Phosphatase Ammonia Lactate Dehydrogenase 2632 H Total Creatine Kinase Troponin I NT-Pro-B Natriuret Pep Total Protein Albumin Globulin Albumin/Globulin Ratio Triglycerides Cholesterol LDL Cholesterol Direct HDL Cholesterol Lipase Free T4 Thyroxine (T4) Free T3 pg/mL TSH 3rd Generation Urine Color Urine Appearance Urine pH Ur Specific [place] Urine Protein Urine Glucose (UA) Urine Ketones Urine Blood Urine Nitrate Urine Bilirubin Urine Urobilinogen Ur Leukocyte Esterase Urine RBC Urine WBC Ur Epithelial Cells Urine Bacteria Urine Opiates Screen Urine Methadone Screen Acetaminophen < 10.0 L Ur Barbiturates Screen Ur Phencyclidine Scrn Ur Amphetamines Screen U Benzodiazepines Scrn U Oth Cocaine Metabols U Cannabinoids Screen Alcohol, Quantitative EKG/Cardiology Studies: Cardiology / EKG Studies 04/03/18 18:23 EKG [ELECTROCARDIOGRAM] Stat Comment: Reason For Exam: medical clearance 04/03/18 18:55 EKG [ELECTROCARDIOGRAM] Stat Comment: Reason For Exam: SIDE PAIN 04/04/18 07:00 EKG [ELECTROCARDIOGRAM] Routine Comment: Reason For Exam: prior AFib Review of Systems - Review of Systems Review of Systems: per [facility] Critical Care Progress Note - Nutrition Nutrition: Nutrition Category Date Time Status Heart Healthy Diet [DIET] Diets 04/03/18 Breakfast Active Assessment/Plan - Assessment and Plan (Free Text) Assessment: 27 yo M with PMH of unspecified thyroid disorder is admitted to ICU for management of transaminitis, heart failure in the setting of thyroid storm Plan: Neuro: AAOx3, no FND, moving extremities past midline Monitor neuro status Reorient patient as necessary seizure precautions aspiration precautions fall precautions Cardiovascular: AFib on admission likely 2/2 thyroid storm Cardizem given in ED with resolution of AFib but remains tachycardic [id number] score is 0 INR increasing Per cardiology, pt doesn't require anticoagulation d/t increased INR Continue propranolol CTA shows large b/l pleural effusions, right heart failure, b/l hilar lymphadenopathy, PAH, pulmonary edema, severe cardiomegaly w/ pulm venous congestion. No PE. BNP elevated Likely contributing to pulmonary edema and hepatic vascular congestion f/u echo results f/u cardiology recs Pulm: No signs of respiratory distress. CTA B/L B/l pleural effusions, likely secondary to cardiomyopathy in the setting of thyroid storm Lasix stat dose for pleural effusions Treat underlying hyperthyroidism, cardiomyopathy Maintain O2 saturation>95% Endocrine: Elevated free thyroxine/T4. Low TSH Badillo-Wartofsky Point Scale score of 65, high likelihood of thyroid storm Thyroid ultrasound revealed thyromegaly with hyperemic flow throughout. no definable cystic or solid mass appreciated. Pt refused morning oral meds, agreeable to afternoon meds Continue methimazole Continue methimazole Continue hydrocortisone Case discussed with Dr. 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 Trend q4h. Monitor transaminits closely Likely secondary to hepatic congestion in the setting of right heart failure Ammonia negative Abdominal US with signs of ascites, gallbladder wall thickening Will order liver doppler US to r/o portal vein thrombosis GI consulted, recs appreciated /Nephro: BUN/Cr stable F/u UA, UCx results Monitor UOP closely Replete electrolytes as needed Maintain euvolemia Heme/Onc: Microcytic anemia noted but H/H stable No overt signs of HD compromise Monitor closely for s/sx of HD compromise ID: Afebrile, no leukocytosis Follow up BCx, UCx, Procalcitonin, Lactate Monitor for signs and symptoms of infection HCV, Hep B, BRANDO, AMA, Anti-Sm ab, thyroglobulin panel, thyroid peroxidase ab DVT/GI PPX: Lovenox/SCD, protonix Full Code Dispo: Pt is comfortable in ICU, however reveals several laboratory abnormalities. Discussion was made for possible transfer to [facility], however we will manage medically in the ICU. Case and plan reviewed and discussed with attending physician, Dr. Bae <Maine Bae - Last Filed: 04/04/18 18:57> CCU Objective - Vital Signs / Intake & Output Vital Signs (Last 4 hours): Vital Signs Pulse Resp BP 04/04/18 17:40 124 H 128/82 04/04/18 17:39 124 H 128/82 04/04/18 16:10 128 H 24 04/04/18 16:08 122 H 04/04/18 16:00 126 H 32 H 115/103 H 04/04/18 15:50 125 H 22 04/04/18 15:40 119 H 29 H 04/04/18 15:30 139 H 33 H 04/04/18 15:20 119 H 29 H 04/04/18 15:10 104 H 27 H 04/04/18 15:00 118 H 27 H 110/60 04/04/18 14:50 109 H 31 H 04/04/18 14:40 108 H 57 H Intake and Output (Last 8hrs): Intake & Output 04/04/18 04/04/18 04/04/18 06:59 14:59 22:59 Intake Total 960 Output Total 402 Balance 558 Weight 62.641 kg Intake: Oral 960 Output: Urine 400 Urine, Voided 400 Stool 1 Emesis 1 - Medications Active Medications: Active Medications Generic Name Dose Route Start Last Admin Trade Name Freq PRN Reason Stop Dose Admin Albuterol Sulfate 2.5 mg 04/04/18 00:00 04/04/18 16:05 Albuterol 0.083% Inhal Sandra (2.5 Mg/3 Ml) Ud IH 2.5 mg Q4 ALLEY Administration Cholestyramine Resin 4 gm 04/03/18 22:00 04/04/18 17:41 Questran PO 4 gm QID ALLEY Administration Enoxaparin Sodium 40 mg 04/04/18 10:00 04/04/18 10:52 Lovenox SC 40 mg DAILY ALLEY Administration Protocol Hydrocortisone Sodium Succinate 100 mg 04/03/18 22:00 04/04/18 14:33 Solu-Cortef IVP 100 mg Q8 ALLEY Administration Acetylcysteine 6,260 mg/ 1,031.3 mls @ 62.5 mls/hr 04/04/18 14:30 Dextrose IVPB 04/05/18 07:00 ONCE ONE Losartan Potassium 12.5 mg 04/04/18 16:30 04/04/18 17:39 Cozaar PO 12.5 mg DAILY ALLEY Administration Methimazole 20 mg 04/04/18 00:00 04/04/18 17:40 Tapazole PO 20 mg Q6 ALLEY Administration Ondansetron HCl 4 mg 04/04/18 01:00 04/04/18 09:14 Zofran Inj IVP 4 mg Q4H PRN Administration Nausea/Vomiting Pantoprazole Sodium 40 mg 04/04/18 06:00 04/04/18 08:03 Protonix Ec Tab PO 40 mg 0600 ALLEY Administration Propranolol HCl 10 mg 04/04/18 00:00 04/04/18 17:40 Inderal PO 10 mg Q6 ALLEY Administration Spironolactone 12.5 mg 04/04/18 16:30 04/04/18 17:39 Aldactone PO 12.5 mg DAILY ALLEY Administration - Patient Studies Lab Studies: Lab Studies 04/04/18 04/04/18 04/04/18 Range/Units 17:30 17:30 13:52 WBC (4.5-11.0) 10^3/uL RBC (3.5-6.1) 10^6/uL Hgb (14.0-18.0) g/dL Hct (42.0-52.0) % MCV (80.0-105.0) fl MCH (25.0-35.0) pg MCHC (31.0-37.0) g/dl RDW (11.5-14.5) % Plt Count (120.0-450.0) 10^3/uL MPV (7.0-11.0) fl Gran % (50.0-68.0) % Lymph % (Auto) (22.0-35.0) % [place] % (Auto) (1.0-6.0) % Eos % (Auto) (1.5-5.0) % Baso % (Auto) (0.0-3.0) % Gran # (1.4-6.5) Lymph # (Auto) (1.2-3.4) [place] # (Auto) (0.1-0.6) Eos # (Auto) (0.0-0.7) Baso # (Auto) (0.0-2.0) K/mm3 Differential Comment ESR (0.0-15.0) mm/hr Retic Count (0.5-1.5) % Haptoglobin (30.0-200.0) mg/dL PT (9.4-12.5) SECONDS INR APTT (25.1-36.5) Seconds D-Dimer, Quantitative (0-243) ng/mlDDU Sodium 131 L 134 (132-148) mmol/L Potassium 4.6 5.0 (3.6-5.0) mmol/L Chloride 95 L 98 (98-107) mmol/L Carbon Dioxide 23 21 (21-33) mmol/L Anion Gap 18 20 (10-20) BUN 22 H 21 (7-21) mg/dL Creatinine 0.8 0.8 (0.8-1.5) mg/dl Est GFR ( Amer) > 60 > 60 Est GFR (Non-Af Amer) > 60 > 60 POC Glucose (mg/dL) (65-110) mg/dL Random Glucose 208 H 262 H (70-110) mg/dL Hemoglobin A1c (4.2-6.5) % Calcium 8.3 L 8.4 (8.4-10.5) mg/dL Phosphorus (2.5-4.5) mg/dL Magnesium (1.7-2.2) mg/dL Iron (45-180) ug/dL TIBC (261-462) ug/dL % Saturation (20-55) % Transferrin (206-381) mg/dL Ferritin ng/mL Total Bilirubin 2.4 H 3.1 H (0.2-1.3) mg/dL Direct Bilirubin 1.4 H 1.7 H (0.0-0.4) mg/dL GGT 128 H 122 H (8-78) U/L AST 1215 H 851 H D (17-59) U/L ALT 591 H 443 H (7-56) U/L Alkaline Phosphatase 75 31 L D (38-126) U/L Ammonia < 9 L (9-33) umol/L Lactate Dehydrogenase Total Creatine Kinase (35-230) U/L Troponin I ng/mL NT-Pro-B Natriuret Pep (0-450) pg/mL Total Protein 6.8 6.4 (5.8-8.3) g/dL Albumin 3.4 3.2 (3.0-4.8) g/dL Globulin 3.4 3.2 gm/dL Albumin/Globulin Ratio 1.0 L 1.0 L (1.1-1.8) Triglycerides (35-160) mg/dL Cholesterol (130-200) mg/dL LDL Cholesterol Direct (0-129) mg/dL HDL Cholesterol (29-60) mg/dL Lipase (23-300) U/L Free T4 (0.78-2.19) ng/dL Thyroxine (T4) (5.5-11.0) ug/dL Free T3 pg/mL (2.77-5.27) pg/mL TSH 3rd Generation (0.46-4.68) mIU/mL Cortisol AM Sample (4.46-22.7) ug/dL Urine Color (YELLOW) Urine Appearance (CLEAR) Urine pH (4.7-8.0) Ur Specific Hob[place] (1.005-1.035) Urine Protein (<30 mg/dL) mg/dL Urine Glucose (UA) (NEGATIVE) mg/dL Urine Ketones (NEGATIVE) mg/dL Urine Blood (NEGATIVE) Urine Nitrate (NEGATIVE) Urine Bilirubin (NEGATIVE) Urine Urobilinogen (<1 E.U./dL) E.U./dL Ur Leukocyte Esterase (NEGATIVE) Elsa/uL Urine RBC (0-2) /hpf Urine WBC (0-6) /hpf Ur Epithelial Cells (0-5) /hpf Urine Bacteria (NEG) Urine Opiates Screen (NEGATIVE) Urine Methadone Screen (NEGATIVE) Acetaminophen (10.0-20.0) ug/ml Ur Barbiturates Screen (NEGATIVE) Ur Phencyclidine Scrn (NEGATIVE) Ur Amphetamines Screen (NEGATIVE) U Benzodiazepines Scrn (NEGATIVE) U Oth Cocaine Metabols (NEGATIVE) U Cannabinoids Screen (NEGATIVE) Alcohol, Quantitative (0-10) mg/dL Hepatitis A IgM Ab (NEGATIVE) Hep Bs Antigen (NEGATIVE) Hep B Core IgM Ab (NEGATIVE) Hepatitis C Antibody (NEGATIVE) HIV 1&2 Antibody Screen (NEGATIVE) 04/04/18 04/04/18 04/04/18 Range/Units 13:52 06:00 06:00 WBC (4.5-11.0) 10^3/uL RBC (3.5-6.1) 10^6/uL Hgb (14.0-18.0) g/dL Hct (42.0-52.0) % MCV (80.0-105.0) fl MCH (25.0-35.0) pg MCHC (31.0-37.0) g/dl RDW (11.5-14.5) % Plt Count (120.0-450.0) 10^3/uL MPV (7.0-11.0) fl Gran % (50.0-68.0) % Lymph % (Auto) (22.0-35.0) % [place] % (Auto) (1.0-6.0) % Eos % (Auto) (1.5-5.0) % Baso % (Auto) (0.0-3.0) % Gran # (1.4-6.5) Lymph # (Auto) (1.2-3.4) [place] # (Auto) (0.1-0.6) Eos # (Auto) (0.0-0.7) Baso # (Auto) (0.0-2.0) K/mm3 Differential Comment ESR (0.0-15.0) mm/hr Retic Count (0.5-1.5) % Haptoglobin (30.0-200.0) mg/dL PT 32.9 H (9.4-12.5) SECONDS INR 2.80 APTT (25.1-36.5) Seconds D-Dimer, Quantitative (0-243) ng/mlDDU Sodium (132-148) mmol/L Potassium (3.6-5.0) mmol/L Chloride (98-107) mmol/L Carbon Dioxide (21-33) mmol/L Anion Gap (10-20) BUN (7-21) mg/dL Creatinine (0.8-1.5) mg/dl Est GFR ( Amer) Est GFR (Non-Af Amer) POC Glucose (mg/dL) (65-110) mg/dL Random Glucose (70-110) mg/dL Hemoglobin A1c (4.2-6.5) % Calcium (8.4-10.5) mg/dL Phosphorus (2.5-4.5) mg/dL Magnesium (1.7-2.2) mg/dL Iron (45-180) ug/dL TIBC (261-462) ug/dL % Saturation (20-55) % Transferrin (206-381) mg/dL Ferritin ng/mL Total Bilirubin (0.2-1.3) mg/dL Direct Bilirubin (0.0-0.4) mg/dL GGT (8-78) U/L AST (17-59) U/L ALT (7-56) U/L Alkaline Phosphatase (38-126) U/L Ammonia (9-33) umol/L Lactate Dehydrogenase 2632 H Total Creatine Kinase (35-230) U/L Troponin I ng/mL NT-Pro-B Natriuret Pep (0-450) pg/mL Total Protein (5.8-8.3) g/dL Albumin (3.0-4.8) g/dL Globulin gm/dL Albumin/Globulin Ratio (1.1-1.8) Triglycerides (35-160) mg/dL Cholesterol (130-200) mg/dL LDL Cholesterol Direct (0-129) mg/dL HDL Cholesterol (29-60) mg/dL Lipase (23-300) U/L Free T4 (0.78-2.19) ng/dL Thyroxine (T4) (5.5-11.0) ug/dL Free T3 pg/mL (2.77-5.27) pg/mL TSH 3rd Generation (0.46-4.68) mIU/mL Cortisol AM Sample (4.46-22.7) ug/dL Urine Color (YELLOW) Urine Appearance (CLEAR) Urine pH (4.7-8.0) Ur Specific [place] (1.005-1.035) Urine Protein (<30 mg/dL) mg/dL Urine Glucose (UA) (NEGATIVE) mg/dL Urine Ketones (NEGATIVE) mg/dL Urine Blood (NEGATIVE) Urine Nitrate (NEGATIVE) Urine Bilirubin (NEGATIVE) Urine Urobilinogen (<1 E.U./dL) E.U./dL Ur Leukocyte Esterase (NEGATIVE) Elsa/uL Urine RBC (0-2) /hpf Urine WBC (0-6) /hpf Ur Epithelial Cells (0-5) /hpf Urine Bacteria (NEG) Urine Opiates Screen (NEGATIVE) Urine Methadone Screen (NEGATIVE) Acetaminophen < 10.0 L (10.0-20.0) ug/ml Ur Barbiturates Screen (NEGATIVE) Ur Phencyclidine Scrn (NEGATIVE) Ur Amphetamines Screen (NEGATIVE) U Benzodiazepines Scrn (NEGATIVE) U Oth Cocaine Metabols (NEGATIVE) U Cannabinoids Screen (NEGATIVE) Alcohol, Quantitative (0-10) mg/dL Hepatitis A IgM Ab (NEGATIVE) Hep Bs Antigen (NEGATIVE) Hep B Core IgM Ab (NEGATIVE) Hepatitis C Antibody (NEGATIVE) HIV 1&2 Antibody Screen (NEGATIVE) 04/04/18 04/04/18 04/04/18 Range/Units 05:30 05:30 05:30 WBC (4.5-11.0) 10^3/uL RBC (3.5-6.1) 10^6/uL Hgb (14.0-18.0) g/dL Hct (42.0-52.0) % MCV (80.0-105.0) fl MCH (25.0-35.0) pg MCHC (31.0-37.0) g/dl RDW (11.5-14.5) % Plt Count (120.0-450.0) 10^3/uL MPV (7.0-11.0) fl Gran % (50.0-68.0) % Lymph % (Auto) (22.0-35.0) % [place] % (Auto) (1.0-6.0) % Eos % (Auto) (1.5-5.0) % Baso % (Auto) (0.0-3.0) % Gran # (1.4-6.5) Lymph # (Auto) (1.2-3.4) [place] # (Auto) (0.1-0.6) Eos # (Auto) (0.0-0.7) Baso # (Auto) (0.0-2.0) K/mm3 Differential Comment ESR (0.0-15.0) mm/hr Retic Count (0.5-1.5) % Haptoglobin (30.0-200.0) mg/dL PT (9.4-12.5) SECONDS INR APTT (25.1-36.5) Seconds D-Dimer, Quantitative (0-243) ng/mlDDU Sodium (132-148) mmol/L Potassium (3.6-5.0) mmol/L Chloride (98-107) mmol/L Carbon Dioxide (21-33) mmol/L Anion Gap (10-20) BUN (7-21) mg/dL Creatinine (0.8-1.5) mg/dl Est GFR ( Amer) Est GFR (Non-Af Amer) POC Glucose (mg/dL) (65-110) mg/dL Random Glucose (70-110) mg/dL Hemoglobin A1c 5.7 (4.2-6.5) % Calcium (8.4-10.5) mg/dL Phosphorus (2.5-4.5) mg/dL Magnesium (1.7-2.2) mg/dL Iron (45-180) ug/dL TIBC (261-462) ug/dL % Saturation (20-55) % Transferrin (206-381) mg/dL Ferritin ng/mL Total Bilirubin (0.2-1.3) mg/dL Direct Bilirubin (0.0-0.4) mg/dL GGT (8-78) U/L AST (17-59) U/L ALT (7-56) U/L Alkaline Phosphatase (38-126) U/L Ammonia (9-33) umol/L Lactate Dehydrogenase TNP Total Creatine Kinase 55 (35-230) U/L Troponin I TNP ng/mL NT-Pro-B Natriuret Pep (0-450) pg/mL Total Protein (5.8-8.3) g/dL Albumin (3.0-4.8) g/dL Globulin gm/dL Albumin/Globulin Ratio (1.1-1.8) Triglycerides (35-160) mg/dL Cholesterol (130-200) mg/dL LDL Cholesterol Direct (0-129) mg/dL HDL Cholesterol (29-60) mg/dL Lipase (23-300) U/L Free T4 (0.78-2.19) ng/dL Thyroxine (T4) (5.5-11.0) ug/dL Free T3 pg/mL (2.77-5.27) pg/mL TSH 3rd Generation (0.46-4.68) mIU/mL Cortisol AM Sample 61.9 H (4.46-22.7) ug/dL Urine Color (YELLOW) Urine Appearance (CLEAR) Urine pH (4.7-8.0) Ur Specific [place] (1.005-1.035) Urine Protein (<30 mg/dL) mg/dL Urine Glucose (UA) (NEGATIVE) mg/dL Urine Ketones (NEGATIVE) mg/dL Urine Blood (NEGATIVE) Urine Nitrate (NEGATIVE) Urine Bilirubin (NEGATIVE) Urine Urobilinogen (<1 E.U./dL) E.U./dL Ur Leukocyte Esterase (NEGATIVE) Elsa/uL Urine RBC (0-2) /hpf Urine WBC (0-6) /hpf Ur Epithelial Cells (0-5) /hpf Urine Bacteria (NEG) Urine Opiates Screen (NEGATIVE) Urine Methadone Screen (NEGATIVE) Acetaminophen (10.0-20.0) ug/ml Ur Barbiturates Screen (NEGATIVE) Ur Phencyclidine Scrn (NEGATIVE) Ur Amphetamines Screen (NEGATIVE) U Benzodiazepines Scrn (NEGATIVE) U Oth Cocaine Metabols (NEGATIVE) U Cannabinoids Screen (NEGATIVE) Alcohol, Quantitative (0-10) mg/dL Hepatitis A IgM Ab (NEGATIVE) Hep Bs Antigen (NEGATIVE) Hep B Core IgM Ab (NEGATIVE) Hepatitis C Antibody (NEGATIVE) HIV 1&2 Antibody Screen (NEGATIVE) 04/04/18 04/04/18 04/04/18 Range/Units 05:30 05:30 05:30 WBC (4.5-11.0) 10^3/uL RBC (3.5-6.1) 10^6/uL Hgb (14.0-18.0) g/dL Hct (42.0-52.0) % MCV (80.0-105.0) fl MCH (25.0-35.0) pg MCHC (31.0-37.0) g/dl RDW (11.5-14.5) % Plt Count (120.0-450.0) 10^3/uL MPV (7.0-11.0) fl Gran % (50.0-68.0) % Lymph % (Auto) (22.0-35.0) % [place] % (Auto) (1.0-6.0) % Eos % (Auto) (1.5-5.0) % Baso % (Auto) (0.0-3.0) % Gran # (1.4-6.5) Lymph # (Auto) (1.2-3.4) [place] # (Auto) (0.1-0.6) Eos # (Auto) (0.0-0.7) Baso # (Auto) (0.0-2.0) K/mm3 Differential Comment ESR (0.0-15.0) mm/hr Retic Count (0.5-1.5) % Haptoglobin (30.0-200.0) mg/dL PT 23.7 H (9.4-12.5) SECONDS INR 2.03 APTT 29.3 (25.1-36.5) Seconds D-Dimer, Quantitative (0-243) ng/mlDDU Sodium 132 (132-148) mmol/L Potassium 5.7 H* D (3.6-5.0) mmol/L Chloride 101 (98-107) mmol/L Carbon Dioxide 22 (21-33) mmol/L Anion Gap 15 (10-20) BUN 17 (7-21) mg/dL Creatinine 0.8 (0.8-1.5) mg/dl Est GFR ( Amer) > 60 Est GFR (Non-Af Amer) > 60 POC Glucose (mg/dL) (65-110) mg/dL Random Glucose 132 H (70-110) mg/dL Hemoglobin A1c (4.2-6.5) % Calcium 8.7 (8.4-10.5) mg/dL Phosphorus 5.0 H (2.5-4.5) mg/dL Magnesium 1.8 (1.7-2.2) mg/dL Iron (45-180) ug/dL TIBC (261-462) ug/dL % Saturation (20-55) % Transferrin (206-381) mg/dL Ferritin 64.5 ng/mL Total Bilirubin 3.1 H (0.2-1.3) mg/dL Direct Bilirubin 1.6 H (0.0-0.4) mg/dL GGT 149 H (8-78) U/L AST 613 H D (17-59) U/L ALT 330 H (7-56) U/L Alkaline Phosphatase 151 H (38-126) U/L Ammonia (9-33) umol/L Lactate Dehydrogenase Total Creatine Kinase (35-230) U/L Troponin I < 0.01 ng/mL NT-Pro-B Natriuret Pep (0-450) pg/mL Total Protein 6.9 (5.8-8.3) g/dL Albumin 3.4 (3.0-4.8) g/dL Globulin 3.5 gm/dL Albumin/Globulin Ratio 1.0 L (1.1-1.8) Triglycerides 69 (35-160) mg/dL Cholesterol 56 L (130-200) mg/dL LDL Cholesterol Direct 51 (0-129) mg/dL HDL Cholesterol 15 L (29-60) mg/dL Lipase (23-300) U/L Free T4 5.91 H (0.78-2.19) ng/dL Thyroxine (T4) 20.2 H (5.5-11.0) ug/dL Free T3 pg/mL 13.30 H (2.77-5.27) pg/mL TSH 3rd Generation < 0.02 L (0.46-4.68) mIU/mL Cortisol AM Sample (4.46-22.7) ug/dL Urine Color (YELLOW) Urine Appearance (CLEAR) Urine pH (4.7-8.0) Ur Specific [place] (1.005-1.035) Urine Protein (<30 mg/dL) mg/dL Urine Glucose (UA) (NEGATIVE) mg/dL Urine Ketones (NEGATIVE) mg/dL Urine Blood (NEGATIVE) Urine Nitrate (NEGATIVE) Urine Bilirubin (NEGATIVE) Urine Urobilinogen (<1 E.U./dL) E.U./dL Ur Leukocyte Esterase (NEGATIVE) Elsa/uL Urine RBC (0-2) /hpf Urine WBC (0-6) /hpf Ur Epithelial Cells (0-5) /hpf Urine Bacteria (NEG) Urine Opiates Screen (NEGATIVE) Urine Methadone Screen (NEGATIVE) Acetaminophen (10.0-20.0) ug/ml Ur Barbiturates Screen (NEGATIVE) Ur Phencyclidine Scrn (NEGATIVE) Ur Amphetamines Screen (NEGATIVE) U Benzodiazepines Scrn (NEGATIVE) U Oth Cocaine Metabols (NEGATIVE) U Cannabinoids Screen (NEGATIVE) Alcohol, Quantitative (0-10) mg/dL Hepatitis A IgM Ab (NEGATIVE) Hep Bs Antigen (NEGATIVE) Hep B Core IgM Ab (NEGATIVE) Hepatitis C Antibody (NEGATIVE) HIV 1&2 Antibody Screen (NEGATIVE) 04/04/18 04/04/18 04/04/18 Range/Units 05:30 05:30 01:35 WBC 4.5 D (4.5-11.0) 10^3/uL RBC 4.71 (3.5-6.1) 10^6/uL Hgb 11.8 L (14.0-18.0) g/dL Hct 36.2 L (42.0-52.0) % MCV 76.9 L (80.0-105.0) fl MCH 25.1 (25.0-35.0) pg MCHC 32.6 (31.0-37.0) g/dl RDW 13.3 (11.5-14.5) % Plt Count 165 (120.0-450.0) 10^3/uL MPV (7.0-11.0) fl Gran % 70.1 H (50.0-68.0) % Lymph % (Auto) 20.8 L (22.0-35.0) % [place] % (Auto) 9.1 H (1.0-6.0) % Eos % (Auto) 0.0 L (1.5-5.0) % Baso % (Auto) 0.0 (0.0-3.0) % Gran # 3.17 (1.4-6.5) Lymph # (Auto) 0.9 L (1.2-3.4) [place] # (Auto) 0.4 (0.1-0.6) Eos # (Auto) 0.0 (0.0-0.7) Baso # (Auto) 0.00 (0.0-2.0) K/mm3 Differential Comment ESR 7 (0.0-15.0) mm/hr Retic Count (0.5-1.5) % Haptoglobin 50.0 (30.0-200.0) mg/dL PT (9.4-12.5) SECONDS INR APTT (25.1-36.5) Seconds D-Dimer, Quantitative (0-243) ng/mlDDU Sodium (132-148) mmol/L Potassium (3.6-5.0) mmol/L Chloride (98-107) mmol/L Carbon Dioxide (21-33) mmol/L Anion Gap (10-20) BUN (7-21) mg/dL Creatinine (0.8-1.5) mg/dl Est GFR ( Amer) Est GFR (Non-Af Amer) POC Glucose (mg/dL) (65-110) mg/dL Random Glucose (70-110) mg/dL Hemoglobin A1c (4.2-6.5) % Calcium (8.4-10.5) mg/dL Phosphorus (2.5-4.5) mg/dL Magnesium (1.7-2.2) mg/dL Iron (45-180) ug/dL TIBC (261-462) ug/dL % Saturation (20-55) % Transferrin (206-381) mg/dL Ferritin ng/mL Total Bilirubin (0.2-1.3) mg/dL Direct Bilirubin (0.0-0.4) mg/dL GGT (8-78) U/L AST (17-59) U/L ALT (7-56) U/L Alkaline Phosphatase (38-126) U/L Ammonia (9-33) umol/L Lactate Dehydrogenase Total Creatine Kinase (35-230) U/L Troponin I ng/mL NT-Pro-B Natriuret Pep (0-450) pg/mL Total Protein (5.8-8.3) g/dL Albumin (3.0-4.8) g/dL Globulin gm/dL Albumin/Globulin Ratio (1.1-1.8) Triglycerides (35-160) mg/dL Cholesterol (130-200) mg/dL LDL Cholesterol Direct (0-129) mg/dL HDL Cholesterol (29-60) mg/dL Lipase (23-300) U/L Free T4 (0.78-2.19) ng/dL Thyroxine (T4) (5.5-11.0) ug/dL Free T3 pg/mL (2.77-5.27) pg/mL TSH 3rd Generation (0.46-4.68) mIU/mL Cortisol AM Sample (4.46-22.7) ug/dL Urine Color Yellow (YELLOW) Urine Appearance Clear (CLEAR) Urine pH 6.5 (4.7-8.0) Ur Specific [place] <= 1.005 (1.005-1.035) Urine Protein 100 H (<30 mg/dL) mg/dL Urine Glucose (UA) Negative (NEGATIVE) mg/dL Urine Ketones Negative (NEGATIVE) mg/dL Urine Blood Negative (NEGATIVE) Urine Nitrate Negative (NEGATIVE) Urine Bilirubin Small H (NEGATIVE) Urine Urobilinogen 4.0 H (<1 E.U./dL) E.U./dL Ur Leukocyte Esterase Negative (NEGATIVE) Elsa/uL Urine RBC 0 - 2 (0-2) /hpf Urine WBC 0 - 2 (0-6) /hpf Ur Epithelial Cells 0 - 2 (0-5) /hpf Urine Bacteria Rare (NEG) Urine Opiates Screen (NEGATIVE) Urine Methadone Screen (NEGATIVE) Acetaminophen (10.0-20.0) ug/ml Ur Barbiturates Screen (NEGATIVE) Ur Phencyclidine Scrn (NEGATIVE) Ur Amphetamines Screen (NEGATIVE) U Benzodiazepines Scrn (NEGATIVE) U Oth Cocaine Metabols (NEGATIVE) U Cannabinoids Screen (NEGATIVE) Alcohol, Quantitative (0-10) mg/dL Hepatitis A IgM Ab (NEGATIVE) Hep Bs Antigen (NEGATIVE) Hep B Core IgM Ab (NEGATIVE) Hepatitis C Antibody (NEGATIVE) HIV 1&2 Antibody Screen (NEGATIVE) 04/04/18 04/03/18 04/03/18 Range/Units 01:35 22:24 22:24 WBC (4.5-11.0) 10^3/uL RBC (3.5-6.1) 10^6/uL Hgb (14.0-18.0) g/dL Hct (42.0-52.0) % MCV (80.0-105.0) fl MCH (25.0-35.0) pg MCHC (31.0-37.0) g/dl RDW (11.5-14.5) % Plt Count (120.0-450.0) 10^3/uL MPV (7.0-11.0) fl Gran % (50.0-68.0) % Lymph % (Auto) (22.0-35.0) % [place] % (Auto) (1.0-6.0) % Eos % (Auto) (1.5-5.0) % Baso % (Auto) (0.0-3.0) % Gran # (1.4-6.5) Lymph # (Auto) (1.2-3.4) [place] # (Auto) (0.1-0.6) Eos # (Auto) (0.0-0.7) Baso # (Auto) (0.0-2.0) K/mm3 Differential Comment ESR (0.0-15.0) mm/hr Retic Count (0.5-1.5) % Haptoglobin (30.0-200.0) mg/dL PT (9.4-12.5) SECONDS INR APTT (25.1-36.5) Seconds D-Dimer, Quantitative (0-243) ng/mlDDU Sodium (132-148) mmol/L Potassium (3.6-5.0) mmol/L Chloride (98-107) mmol/L Carbon Dioxide (21-33) mmol/L Anion Gap (10-20) BUN (7-21) mg/dL Creatinine (0.8-1.5) mg/dl Est GFR ( Amer) Est GFR (Non-Af Amer) POC Glucose (mg/dL) (65-110) mg/dL Random Glucose (70-110) mg/dL Hemoglobin A1c (4.2-6.5) % Calcium (8.4-10.5) mg/dL Phosphorus (2.5-4.5) mg/dL Magnesium (1.7-2.2) mg/dL Iron (45-180) ug/dL TIBC (261-462) ug/dL % Saturation (20-55) % Transferrin (206-381) mg/dL Ferritin ng/mL Total Bilirubin (0.2-1.3) mg/dL Direct Bilirubin (0.0-0.4) mg/dL GGT (8-78) U/L AST (17-59) U/L ALT (7-56) U/L Alkaline Phosphatase (38-126) U/L Ammonia (9-33) umol/L Lactate Dehydrogenase Total Creatine Kinase (35-230) U/L Troponin I ng/mL NT-Pro-B Natriuret Pep (0-450) pg/mL Total Protein (5.8-8.3) g/dL Albumin (3.0-4.8) g/dL Globulin gm/dL Albumin/Globulin Ratio (1.1-1.8) Triglycerides (35-160) mg/dL Cholesterol (130-200) mg/dL LDL Cholesterol Direct (0-129) mg/dL HDL Cholesterol (29-60) mg/dL Lipase (23-300) U/L Free T4 (0.78-2.19) ng/dL Thyroxine (T4) (5.5-11.0) ug/dL Free T3 pg/mL (2.77-5.27) pg/mL TSH 3rd Generation (0.46-4.68) mIU/mL Cortisol AM Sample (4.46-22.7) ug/dL Urine Color (YELLOW) Urine Appearance (CLEAR) Urine pH (4.7-8.0) Ur Specific [place] (1.005-1.035) Urine Protein (<30 mg/dL) mg/dL Urine Glucose (UA) (NEGATIVE) mg/dL Urine Ketones (NEGATIVE) mg/dL Urine Blood (NEGATIVE) Urine Nitrate (NEGATIVE) Urine Bilirubin (NEGATIVE) Urine Urobilinogen (<1 E.U./dL) E.U./dL Ur Leukocyte Esterase (NEGATIVE) Elsa/uL Urine RBC (0-2) /hpf Urine WBC (0-6) /hpf Ur Epithelial Cells (0-5) /hpf Urine Bacteria (NEG) Urine Opiates Screen Negative (NEGATIVE) Urine Methadone Screen Negative (NEGATIVE) Acetaminophen (10.0-20.0) ug/ml Ur Barbiturates Screen Negative (NEGATIVE) Ur Phencyclidine Scrn Negative (NEGATIVE) Ur Amphetamines Screen Negative (NEGATIVE) U Benzodiazepines Scrn Negative (NEGATIVE) U Oth Cocaine Metabols Negative (NEGATIVE) U Cannabinoids Screen Positive H (NEGATIVE) Alcohol, Quantitative (0-10) mg/dL Hepatitis A IgM Ab Negative (NEGATIVE) Hep Bs Antigen Negative (NEGATIVE) Hep B Core IgM Ab Negative (NEGATIVE) Hepatitis C Antibody Negative (NEGATIVE) HIV 1&2 Antibody Screen Negative (NEGATIVE) 04/03/18 04/03/18 04/03/18 Range/Units 22:24 22:24 22:02 WBC (4.5-11.0) 10^3/uL RBC (3.5-6.1) 10^6/uL Hgb (14.0-18.0) g/dL Hct (42.0-52.0) % MCV (80.0-105.0) fl MCH (25.0-35.0) pg MCHC (31.0-37.0) g/dl RDW (11.5-14.5) % Plt Count (120.0-450.0) 10^3/uL MPV (7.0-11.0) fl Gran % (50.0-68.0) % Lymph % (Auto) (22.0-35.0) % [place] % (Auto) (1.0-6.0) % Eos % (Auto) (1.5-5.0) % Baso % (Auto) (0.0-3.0) % Gran # (1.4-6.5) Lymph # (Auto) (1.2-3.4) [place] # (Auto) (0.1-0.6) Eos # (Auto) (0.0-0.7) Baso # (Auto) (0.0-2.0) K/mm3 Differential Comment ESR (0.0-15.0) mm/hr Retic Count (0.5-1.5) % Haptoglobin (30.0-200.0) mg/dL PT (9.4-12.5) SECONDS INR APTT (25.1-36.5) Seconds D-Dimer, Quantitative (0-243) ng/mlDDU Sodium (132-148) mmol/L Potassium (3.6-5.0) mmol/L Chloride (98-107) mmol/L Carbon Dioxide (21-33) mmol/L Anion Gap (10-20) BUN (7-21) mg/dL Creatinine (0.8-1.5) mg/dl Est GFR ( Amer) Est GFR (Non-Af Amer) POC Glucose (mg/dL) (65-110) mg/dL Random Glucose (70-110) mg/dL Hemoglobin A1c (4.2-6.5) % Calcium (8.4-10.5) mg/dL Phosphorus (2.5-4.5) mg/dL Magnesium (1.7-2.2) mg/dL Iron (45-180) ug/dL TIBC (261-462) ug/dL % Saturation (20-55) % Transferrin 312.10 (206-381) mg/dL Ferritin ng/mL Total Bilirubin (0.2-1.3) mg/dL Direct Bilirubin (0.0-0.4) mg/dL GGT (8-78) U/L AST (17-59) U/L ALT (7-56) U/L Alkaline Phosphatase (38-126) U/L Ammonia < 9 L (9-33) umol/L Lactate Dehydrogenase Total Creatine Kinase (35-230) U/L Troponin I ng/mL NT-Pro-B Natriuret Pep (0-450) pg/mL Total Protein (5.8-8.3) g/dL Albumin (3.0-4.8) g/dL Globulin gm/dL Albumin/Globulin Ratio (1.1-1.8) Triglycerides (35-160) mg/dL Cholesterol (130-200) mg/dL LDL Cholesterol Direct (0-129) mg/dL HDL Cholesterol (29-60) mg/dL Lipase (23-300) U/L Free T4 (0.78-2.19) ng/dL Thyroxine (T4) (5.5-11.0) ug/dL Free T3 pg/mL (2.77-5.27) pg/mL TSH 3rd Generation (0.46-4.68) mIU/mL Cortisol AM Sample (4.46-22.7) ug/dL Urine Color (YELLOW) Urine Appearance (CLEAR) Urine pH (4.7-8.0) Ur Specific [place] (1.005-1.035) Urine Protein (<30 mg/dL) mg/dL Urine Glucose (UA) (NEGATIVE) mg/dL Urine Ketones (NEGATIVE) mg/dL Urine Blood (NEGATIVE) Urine Nitrate (NEGATIVE) Urine Bilirubin (NEGATIVE) Urine Urobilinogen (<1 E.U./dL) E.U./dL Ur Leukocyte Esterase (NEGATIVE) Elsa/uL Urine RBC (0-2) /hpf Urine WBC (0-6) /hpf Ur Epithelial Cells (0-5) /hpf Urine Bacteria (NEG) Urine Opiates Screen (NEGATIVE) Urine Methadone Screen (NEGATIVE) Acetaminophen (10.0-20.0) ug/ml Ur Barbiturates Screen (NEGATIVE) Ur Phencyclidine Scrn (NEGATIVE) Ur Amphetamines Screen (NEGATIVE) U Benzodiazepines Scrn (NEGATIVE) U Oth Cocaine Metabols (NEGATIVE) U Cannabinoids Screen (NEGATIVE) Alcohol, Quantitative < 10 (0-10) mg/dL Hepatitis A IgM Ab (NEGATIVE) Hep Bs Antigen (NEGATIVE) Hep B Core IgM Ab (NEGATIVE) Hepatitis C Antibody (NEGATIVE) HIV 1&2 Antibody Screen (NEGATIVE) 04/03/18 04/03/18 04/03/18 Range/Units 22:02 20:33 18:46 WBC (4.5-11.0) 10^3/uL RBC (3.5-6.1) 10^6/uL Hgb (14.0-18.0) g/dL Hct (42.0-52.0) % MCV (80.0-105.0) fl MCH (25.0-35.0) pg MCHC (31.0-37.0) g/dl RDW (11.5-14.5) % Plt Count (120.0-450.0) 10^3/uL MPV (7.0-11.0) fl Gran % (50.0-68.0) % Lymph % (Auto) (22.0-35.0) % [place] % (Auto) (1.0-6.0) % Eos % (Auto) (1.5-5.0) % Baso % (Auto) (0.0-3.0) % Gran # (1.4-6.5) Lymph # (Auto) (1.2-3.4) [place] # (Auto) (0.1-0.6) Eos # (Auto) (0.0-0.7) Baso # (Auto) (0.0-2.0) K/mm3 Differential Comment See pathology review ESR (0.0-15.0) mm/hr Retic Count (0.5-1.5) % Haptoglobin (30.0-200.0) mg/dL PT (9.4-12.5) SECONDS INR APTT (25.1-36.5) Seconds D-Dimer, Quantitative (0-243) ng/mlDDU Sodium (132-148) mmol/L Potassium (3.6-5.0) mmol/L Chloride (98-107) mmol/L Carbon Dioxide (21-33) mmol/L Anion Gap (10-20) BUN (7-21) mg/dL Creatinine (0.8-1.5) mg/dl Est GFR ( Amer) Est GFR (Non-Af Amer) POC Glucose (mg/dL) 102 (65-110) mg/dL Random Glucose (70-110) mg/dL Hemoglobin A1c (4.2-6.5) % Calcium (8.4-10.5) mg/dL Phosphorus (2.5-4.5) mg/dL Magnesium (1.7-2.2) mg/dL Iron 34 L (45-180) ug/dL TIBC 397 (261-462) ug/dL % Saturation 8 L (20-55) % Transferrin (206-381) mg/dL Ferritin ng/mL Total Bilirubin (0.2-1.3) mg/dL Direct Bilirubin (0.0-0.4) mg/dL GGT (8-78) U/L AST (17-59) U/L ALT (7-56) U/L Alkaline Phosphatase (38-126) U/L Ammonia (9-33) umol/L Lactate Dehydrogenase Total Creatine Kinase (35-230) U/L Troponin I ng/mL NT-Pro-B Natriuret Pep (0-450) pg/mL Total Protein (5.8-8.3) g/dL Albumin (3.0-4.8) g/dL Globulin gm/dL Albumin/Globulin Ratio (1.1-1.8) Triglycerides (35-160) mg/dL Cholesterol (130-200) mg/dL LDL Cholesterol Direct (0-129) mg/dL HDL Cholesterol (29-60) mg/dL Lipase (23-300) U/L Free T4 (0.78-2.19) ng/dL Thyroxine (T4) (5.5-11.0) ug/dL Free T3 pg/mL (2.77-5.27) pg/mL TSH 3rd Generation (0.46-4.68) mIU/mL Cortisol AM Sample (4.46-22.7) ug/dL Urine Color (YELLOW) Urine Appearance (CLEAR) Urine pH (4.7-8.0) Ur Specific [place] (1.005-1.035) Urine Protein (<30 mg/dL) mg/dL Urine Glucose (UA) (NEGATIVE) mg/dL Urine Ketones (NEGATIVE) mg/dL Urine Blood (NEGATIVE) Urine Nitrate (NEGATIVE) Urine Bilirubin (NEGATIVE) Urine Urobilinogen (<1 E.U./dL) E.U./dL Ur Leukocyte Esterase (NEGATIVE) Elsa/uL Urine RBC (0-2) /hpf Urine WBC (0-6) /hpf Ur Epithelial Cells (0-5) /hpf Urine Bacteria (NEG) Urine Opiates Screen (NEGATIVE) Urine Methadone Screen (NEGATIVE) Acetaminophen (10.0-20.0) ug/ml Ur Barbiturates Screen (NEGATIVE) Ur Phencyclidine Scrn (NEGATIVE) Ur Amphetamines Screen (NEGATIVE) U Benzodiazepines Scrn (NEGATIVE) U Oth Cocaine Metabols (NEGATIVE) U Cannabinoids Screen (NEGATIVE) Alcohol, Quantitative (0-10) mg/dL Hepatitis A IgM Ab (NEGATIVE) Hep Bs Antigen (NEGATIVE) Hep B Core IgM Ab (NEGATIVE) Hepatitis C Antibody (NEGATIVE) HIV 1&2 Antibody Screen (NEGATIVE) 04/03/18 04/03/18 04/03/18 Range/Units 18:46 18:46 18:46 WBC (4.5-11.0) 10^3/uL RBC (3.5-6.1) 10^6/uL Hgb (14.0-18.0) g/dL Hct (42.0-52.0) % MCV (80.0-105.0) fl MCH (25.0-35.0) pg MCHC (31.0-37.0) g/dl RDW (11.5-14.5) % Plt Count (120.0-450.0) 10^3/uL MPV (7.0-11.0) fl Gran % (50.0-68.0) % Lymph % (Auto) (22.0-35.0) % [place] % (Auto) (1.0-6.0) % Eos % (Auto) (1.5-5.0) % Baso % (Auto) (0.0-3.0) % Gran # (1.4-6.5) Lymph # (Auto) (1.2-3.4) [place] # (Auto) (0.1-0.6) Eos # (Auto) (0.0-0.7) Baso # (Auto) (0.0-2.0) K/mm3 Differential Comment ESR (0.0-15.0) mm/hr Retic Count 1.56 H (0.5-1.5) % Haptoglobin (30.0-200.0) mg/dL PT (9.4-12.5) SECONDS INR APTT (25.1-36.5) Seconds D-Dimer, Quantitative (0-243) ng/mlDDU Sodium (132-148) mmol/L Potassium (3.6-5.0) mmol/L Chloride (98-107) mmol/L Carbon Dioxide (21-33) mmol/L Anion Gap (10-20) BUN (7-21) mg/dL Creatinine (0.8-1.5) mg/dl Est GFR ( Amer) Est GFR (Non-Af Amer) POC Glucose (mg/dL) (65-110) mg/dL Random Glucose (70-110) mg/dL Hemoglobin A1c (4.2-6.5) % Calcium (8.4-10.5) mg/dL Phosphorus (2.5-4.5) mg/dL Magnesium (1.7-2.2) mg/dL Iron (45-180) ug/dL TIBC (261-462) ug/dL % Saturation (20-55) % Transferrin (206-381) mg/dL Ferritin ng/mL Total Bilirubin (0.2-1.3) mg/dL Direct Bilirubin (0.0-0.4) mg/dL GGT (8-78) U/L AST (17-59) U/L ALT (7-56) U/L Alkaline Phosphatase (38-126) U/L Ammonia (9-33) umol/L Lactate Dehydrogenase Total Creatine Kinase (35-230) U/L Troponin I ng/mL NT-Pro-B Natriuret Pep 4780 H (0-450) pg/mL Total Protein (5.8-8.3) g/dL Albumin (3.0-4.8) g/dL Globulin gm/dL Albumin/Globulin Ratio (1.1-1.8) Triglycerides (35-160) mg/dL Cholesterol (130-200) mg/dL LDL Cholesterol Direct (0-129) mg/dL HDL Cholesterol (29-60) mg/dL Lipase (23-300) U/L Free T4 6.60 H (0.78-2.19) ng/dL Thyroxine (T4) (5.5-11.0) ug/dL Free T3 pg/mL > 22.80 H (2.77-5.27) pg/mL TSH 3rd Generation < 0.02 L (0.46-4.68) mIU/mL Cortisol AM Sample (4.46-22.7) ug/dL Urine Color (YELLOW) Urine Appearance (CLEAR) Urine pH (4.7-8.0) Ur Specific [place] (1.005-1.035) Urine Protein (<30 mg/dL) mg/dL Urine Glucose (UA) (NEGATIVE) mg/dL Urine Ketones (NEGATIVE) mg/dL Urine Blood (NEGATIVE) Urine Nitrate (NEGATIVE) Urine Bilirubin (NEGATIVE) Urine Urobilinogen (<1 E.U./dL) E.U./dL Ur Leukocyte Esterase (NEGATIVE) Elsa/uL Urine RBC (0-2) /hpf Urine WBC (0-6) /hpf Ur Epithelial Cells (0-5) /hpf Urine Bacteria (NEG) Urine Opiates Screen (NEGATIVE) Urine Methadone Screen (NEGATIVE) Acetaminophen (10.0-20.0) ug/ml Ur Barbiturates Screen (NEGATIVE) Ur Phencyclidine Scrn (NEGATIVE) Ur Amphetamines Screen (NEGATIVE) U Benzodiazepines Scrn (NEGATIVE) U Oth Cocaine Metabols (NEGATIVE) U Cannabinoids Screen (NEGATIVE) Alcohol, Quantitative (0-10) mg/dL Hepatitis A IgM Ab (NEGATIVE) Hep Bs Antigen (NEGATIVE) Hep B Core IgM Ab (NEGATIVE) Hepatitis C Antibody (NEGATIVE) HIV 1&2 Antibody Screen (NEGATIVE) 04/03/18 04/03/18 04/03/18 Range/Units 18:46 18:46 18:46 WBC 7.0 (4.5-11.0) 10^3/uL RBC 4.52 (3.5-6.1) 10^6/uL Hgb 11.6 L (14.0-18.0) g/dL Hct 34.7 L (42.0-52.0) % MCV 76.8 L (80.0-105.0) fl MCH 25.7 (25.0-35.0) pg MCHC 33.4 (31.0-37.0) g/dl RDW 13.3 (11.5-14.5) % Plt Count 164 (120.0-450.0) 10^3/uL MPV 12.1 H (7.0-11.0) fl Gran % 58.5 (50.0-68.0) % Lymph % (Auto) 28.9 (22.0-35.0) % [place] % (Auto) 12.1 H (1.0-6.0) % Eos % (Auto) 0.4 L (1.5-5.0) % Baso % (Auto) 0.1 (0.0-3.0) % Gran # 4.06 (1.4-6.5) Lymph # (Auto) 2.0 (1.2-3.4) [place] # (Auto) 0.8 H (0.1-0.6) Eos # (Auto) 0.0 (0.0-0.7) Baso # (Auto) 0.01 (0.0-2.0) K/mm3 Differential Comment ESR (0.0-15.0) mm/hr Retic Count (0.5-1.5) % Haptoglobin (30.0-200.0) mg/dL PT 20.1 H (9.4-12.5) SECONDS INR 1.74 APTT 35.0 (25.1-36.5) Seconds D-Dimer, Quantitative 366 H (0-243) ng/mlDDU Sodium 133 (132-148) mmol/L Potassium 4.3 (3.6-5.0) mmol/L Chloride 101 (98-107) mmol/L Carbon Dioxide 24 (21-33) mmol/L Anion Gap 12 (10-20) BUN 12 (7-21) mg/dL Creatinine 0.6 L (0.8-1.5) mg/dl Est GFR ( Amer) > 60 Est GFR (Non-Af Amer) > 60 POC Glucose (mg/dL) (65-110) mg/dL Random Glucose 122 H (70-110) mg/dL Hemoglobin A1c (4.2-6.5) % Calcium 8.6 (8.4-10.5) mg/dL Phosphorus (2.5-4.5) mg/dL Magnesium 1.6 L (1.7-2.2) mg/dL Iron (45-180) ug/dL TIBC (261-462) ug/dL % Saturation (20-55) % Transferrin (206-381) mg/dL Ferritin ng/mL Total Bilirubin 2.8 H (0.2-1.3) mg/dL Direct Bilirubin (0.0-0.4) mg/dL GGT (8-78) U/L AST 138 H (17-59) U/L ALT 128 H (7-56) U/L Alkaline Phosphatase 145 H (38-126) U/L Ammonia (9-33) umol/L Lactate Dehydrogenase Total Creatine Kinase (35-230) U/L Troponin I < 0.01 ng/mL NT-Pro-B Natriuret Pep (0-450) pg/mL Total Protein 6.8 (5.8-8.3) g/dL Albumin 3.3 (3.0-4.8) g/dL Globulin 3.5 gm/dL Albumin/Globulin Ratio 0.9 L (1.1-1.8) Triglycerides (35-160) mg/dL Cholesterol (130-200) mg/dL LDL Cholesterol Direct (0-129) mg/dL HDL Cholesterol (29-60) mg/dL Lipase 124 (23-300) U/L Free T4 (0.78-2.19) ng/dL Thyroxine (T4) (5.5-11.0) ug/dL Free T3 pg/mL (2.77-5.27) pg/mL TSH 3rd Generation (0.46-4.68) mIU/mL Cortisol AM Sample (4.46-22.7) ug/dL Urine Color (YELLOW) Urine Appearance (CLEAR) Urine pH (4.7-8.0) Ur Specific [place] (1.005-1.035) Urine Protein (<30 mg/dL) mg/dL Urine Glucose (UA) (NEGATIVE) mg/dL Urine Ketones (NEGATIVE) mg/dL Urine Blood (NEGATIVE) Urine Nitrate (NEGATIVE) Urine Bilirubin (NEGATIVE) Urine Urobilinogen (<1 E.U./dL) E.U./dL Ur Leukocyte Esterase (NEGATIVE) Elsa/uL Urine RBC (0-2) /hpf Urine WBC (0-6) /hpf Ur Epithelial Cells (0-5) /hpf Urine Bacteria (NEG) Urine Opiates Screen (NEGATIVE) Urine Methadone Screen (NEGATIVE) Acetaminophen (10.0-20.0) ug/ml Ur Barbiturates Screen (NEGATIVE) Ur Phencyclidine Scrn (NEGATIVE) Ur Amphetamines Screen (NEGATIVE) U Benzodiazepines Scrn (NEGATIVE) U Oth Cocaine Metabols (NEGATIVE) U Cannabinoids Screen (NEGATIVE) Alcohol, Quantitative (0-10) mg/dL Hepatitis A IgM Ab (NEGATIVE) Hep Bs Antigen (NEGATIVE) Hep B Core IgM Ab (NEGATIVE) Hepatitis C Antibody (NEGATIVE) HIV 1&2 Antibody Screen (NEGATIVE) Laboratory Results - last 24 hr 04/03/18 04/03/18 04/03/18 18:46 18:46 18:46 WBC 7.0 RBC 4.52 Hgb 11.6 L Hct 34.7 L MCV 76.8 L MCH 25.7 MCHC 33.4 RDW 13.3 Plt Count 164 MPV 12.1 H Gran % 58.5 Lymph % (Auto) 28.9 [place] % (Auto) 12.1 H Eos % (Auto) 0.4 L Baso % (Auto) 0.1 Gran # 4.06 Lymph # (Auto) 2.0 [place] # (Auto) 0.8 H Eos # (Auto) 0.0 Baso # (Auto) 0.01 Differential Comment ESR Retic Count Haptoglobin PT 20.1 H INR 1.74 APTT 35.0 D-Dimer, Quantitative 366 H Sodium 133 Potassium 4.3 Chloride 101 Carbon Dioxide 24 Anion Gap 12 BUN 12 Creatinine 0.6 L Est GFR ( Amer) > 60 Est GFR (Non-Af Amer) > 60 POC Glucose (mg/dL) Random Glucose 122 H Hemoglobin A1c Calcium 8.6 Phosphorus Magnesium 1.6 L Iron TIBC % Saturation Transferrin Ferritin Total Bilirubin 2.8 H Direct Bilirubin GGT AST 138 H ALT 128 H Alkaline Phosphatase 145 H Ammonia Lactate Dehydrogenase Total Creatine Kinase Troponin I < 0.01 NT-Pro-B Natriuret Pep Total Protein 6.8 Albumin 3.3 Globulin 3.5 Albumin/Globulin Ratio 0.9 L Triglycerides Cholesterol LDL Cholesterol Direct HDL Cholesterol Lipase 124 Free T4 Thyroxine (T4) Free T3 pg/mL TSH 3rd Generation Cortisol AM Sample Urine Color Urine Appearance Urine pH Ur Specific [place] Urine Protein Urine Glucose (UA) Urine Ketones Urine Blood Urine Nitrate Urine Bilirubin Urine Urobilinogen Ur Leukocyte Esterase Urine RBC Urine WBC Ur Epithelial Cells Urine Bacteria Urine Opiates Screen Urine Methadone Screen Acetaminophen Ur Barbiturates Screen Ur Phencyclidine Scrn Ur Amphetamines Screen U Benzodiazepines Scrn U Oth Cocaine Metabols U Cannabinoids Screen Alcohol, Quantitative Hepatitis A IgM Ab Hep Bs Antigen Hep B Core IgM Ab Hepatitis C Antibody HIV 1&2 Antibody Screen 04/03/18 04/03/18 04/03/18 18:46 18:46 18:46 WBC RBC Hgb Hct MCV MCH MCHC RDW Plt Count MPV Gran % Lymph % (Auto) [place] % (Auto) Eos % (Auto) Baso % (Auto) Gran # Lymph # (Auto) [place] # (Auto) Eos # (Auto) Baso # (Auto) Differential Comment ESR Retic Count 1.56 H Haptoglobin PT INR APTT D-Dimer, Quantitative Sodium Potassium Chloride Carbon Dioxide Anion Gap BUN Creatinine Est GFR ( Amer) Est GFR (Non-Af Amer) POC Glucose (mg/dL) Random Glucose Hemoglobin A1c Calcium Phosphorus Magnesium Iron TIBC % Saturation Transferrin Ferritin Total Bilirubin Direct Bilirubin GGT AST ALT Alkaline Phosphatase Ammonia Lactate Dehydrogenase Total Creatine Kinase Troponin I NT-Pro-B Natriuret Pep 4780 H Total Protein Albumin Globulin Albumin/Globulin Ratio Triglycerides Cholesterol LDL Cholesterol Direct HDL Cholesterol Lipase Free T4 6.60 H Thyroxine (T4) Free T3 pg/mL > 22.80 H TSH 3rd Generation < 0.02 L Cortisol AM Sample Urine Color Urine Appearance Urine pH Ur Specific [place] Urine Protein Urine Glucose (UA) Urine Ketones Urine Blood Urine Nitrate Urine Bilirubin Urine Urobilinogen Ur Leukocyte Esterase Urine RBC Urine WBC Ur Epithelial Cells Urine Bacteria Urine Opiates Screen Urine Methadone Screen Acetaminophen Ur Barbiturates Screen Ur Phencyclidine Scrn Ur Amphetamines Screen U Benzodiazepines Scrn U Oth Cocaine Metabols U Cannabinoids Screen Alcohol, Quantitative Hepatitis A IgM Ab Hep Bs Antigen Hep B Core IgM Ab Hepatitis C Antibody HIV 1&2 Antibody Screen 04/03/18 04/03/18 04/03/18 18:46 20:33 22:02 WBC RBC Hgb Hct MCV MCH MCHC RDW Plt Count MPV Gran % Lymph % (Auto) [place] % (Auto) Eos % (Auto) Baso % (Auto) Gran # Lymph # (Auto) [place] # (Auto) Eos # (Auto) Baso # (Auto) Differential Comment See pathology review ESR Retic Count Haptoglobin PT INR APTT D-Dimer, Quantitative Sodium Potassium Chloride Carbon Dioxide Anion Gap BUN Creatinine Est GFR ( Amer) Est GFR (Non-Af Amer) POC Glucose (mg/dL) 102 Random Glucose Hemoglobin A1c Calcium Phosphorus Magnesium Iron 34 L TIBC 397 % Saturation 8 L Transferrin Ferritin Total Bilirubin Direct Bilirubin GGT AST ALT Alkaline Phosphatase Ammonia Lactate Dehydrogenase Total Creatine Kinase Troponin I NT-Pro-B Natriuret Pep Total Protein Albumin Globulin Albumin/Globulin Ratio Triglycerides Cholesterol LDL Cholesterol Direct HDL Cholesterol Lipase Free T4 Thyroxine (T4) Free T3 pg/mL TSH 3rd Generation Cortisol AM Sample Urine Color Urine Appearance Urine pH Ur Specific [place] Urine Protein Urine Glucose (UA) Urine Ketones Urine Blood Urine Nitrate Urine Bilirubin Urine Urobilinogen Ur Leukocyte Esterase Urine RBC Urine WBC Ur Epithelial Cells Urine Bacteria Urine Opiates Screen Urine Methadone Screen Acetaminophen Ur Barbiturates Screen Ur Phencyclidine Scrn Ur Amphetamines Screen U Benzodiazepines Scrn U Oth Cocaine Metabols U Cannabinoids Screen Alcohol, Quantitative Hepatitis A IgM Ab Hep Bs Antigen Hep B Core IgM Ab Hepatitis C Antibody HIV 1&2 Antibody Screen 04/03/18 04/03/18 04/03/18 22:02 22:24 22:24 WBC RBC Hgb Hct MCV MCH MCHC RDW Plt Count MPV Gran % Lymph % (Auto) [place] % (Auto) Eos % (Auto) Baso % (Auto) Gran # Lymph # (Auto) [place] # (Auto) Eos # (Auto) Baso # (Auto) Differential Comment ESR Retic Count Haptoglobin PT INR APTT D-Dimer, Quantitative Sodium Potassium Chloride Carbon Dioxide Anion Gap BUN Creatinine Est GFR ( Amer) Est GFR (Non-Af Amer) POC Glucose (mg/dL) Random Glucose Hemoglobin A1c Calcium Phosphorus Magnesium Iron TIBC % Saturation Transferrin 312.10 Ferritin Total Bilirubin Direct Bilirubin GGT AST ALT Alkaline Phosphatase Ammonia < 9 L Lactate Dehydrogenase Total Creatine Kinase Troponin I NT-Pro-B Natriuret Pep Total Protein Albumin Globulin Albumin/Globulin Ratio Triglycerides Cholesterol LDL Cholesterol Direct HDL Cholesterol Lipase Free T4 Thyroxine (T4) Free T3 pg/mL TSH 3rd Generation Cortisol AM Sample Urine Color Urine Appearance Urine pH Ur Specific [place] Urine Protein Urine Glucose (UA) Urine Ketones Urine Blood Urine Nitrate Urine Bilirubin Urine Urobilinogen Ur Leukocyte Esterase Urine RBC Urine WBC Ur Epithelial Cells Urine Bacteria Urine Opiates Screen Urine Methadone Screen Acetaminophen Ur Barbiturates Screen Ur Phencyclidine Scrn Ur Amphetamines Screen U Benzodiazepines Scrn U Oth Cocaine Metabols U Cannabinoids Screen Alcohol, Quantitative < 10 Hepatitis A IgM Ab Hep Bs Antigen Hep B Core IgM Ab Hepatitis C Antibody HIV 1&2 Antibody Screen 04/03/18 04/03/18 04/04/18 22:24 22:24 01:35 WBC RBC Hgb Hct MCV MCH MCHC RDW Plt Count MPV Gran % Lymph % (Auto) [place] % (Auto) Eos % (Auto) Baso % (Auto) Gran # Lymph # (Auto) [place] # (Auto) Eos # (Auto) Baso # (Auto) Differential Comment ESR Retic Count Haptoglobin PT INR APTT D-Dimer, Quantitative Sodium Potassium Chloride Carbon Dioxide Anion Gap BUN Creatinine Est GFR ( Amer) Est GFR (Non-Af Amer) POC Glucose (mg/dL) Random Glucose Hemoglobin A1c Calcium Phosphorus Magnesium Iron TIBC % Saturation Transferrin Ferritin Total Bilirubin Direct Bilirubin GGT AST ALT Alkaline Phosphatase Ammonia Lactate Dehydrogenase Total Creatine Kinase Troponin I NT-Pro-B Natriuret Pep Total Protein Albumin Globulin Albumin/Globulin Ratio Triglycerides Cholesterol LDL Cholesterol Direct HDL Cholesterol Lipase Free T4 Thyroxine (T4) Free T3 pg/mL TSH 3rd Generation Cortisol AM Sample Urine Color Urine Appearance Urine pH Ur Specific [place] Urine Protein Urine Glucose (UA) Urine Ketones Urine Blood Urine Nitrate Urine Bilirubin Urine Urobilinogen Ur Leukocyte Esterase Urine RBC Urine WBC Ur Epithelial Cells Urine Bacteria Urine Opiates Screen Negative Urine Methadone Screen Negative Acetaminophen Ur Barbiturates Screen Negative Ur Phencyclidine Scrn Negative Ur Amphetamines Screen Negative U Benzodiazepines Scrn Negative U Oth Cocaine Metabols Negative U Cannabinoids Screen Positive H Alcohol, Quantitative Hepatitis A IgM Ab Negative Hep Bs Antigen Negative Hep B Core IgM Ab Negative Hepatitis C Antibody Negative HIV 1&2 Antibody Screen Negative 04/04/18 04/04/18 04/04/18 01:35 05:30 05:30 WBC 4.5 D RBC 4.71 Hgb 11.8 L Hct 36.2 L MCV 76.9 L MCH 25.1 MCHC 32.6 RDW 13.3 Plt Count 165 MPV Gran % 70.1 H Lymph % (Auto) 20.8 L [place] % (Auto) 9.1 H Eos % (Auto) 0.0 L Baso % (Auto) 0.0 Gran # 3.17 Lymph # (Auto) 0.9 L [place] # (Auto) 0.4 Eos # (Auto) 0.0 Baso # (Auto) 0.00 Differential Comment ESR 7 Retic Count Haptoglobin 50.0 PT INR APTT D-Dimer, Quantitative Sodium Potassium Chloride Carbon Dioxide Anion Gap BUN Creatinine Est GFR ( Amer) Est GFR (Non-Af Amer) POC Glucose (mg/dL) Random Glucose Hemoglobin A1c Calcium Phosphorus Magnesium Iron TIBC % Saturation Transferrin Ferritin Total Bilirubin Direct Bilirubin GGT AST ALT Alkaline Phosphatase Ammonia Lactate Dehydrogenase Total Creatine Kinase Troponin I NT-Pro-B Natriuret Pep Total Protein Albumin Globulin Albumin/Globulin Ratio Triglycerides Cholesterol LDL Cholesterol Direct HDL Cholesterol Lipase Free T4 Thyroxine (T4) Free T3 pg/mL TSH 3rd Generation Cortisol AM Sample Urine Color Yellow Urine Appearance Clear Urine pH 6.5 Ur Specific [place] <= 1.005 Urine Protein 100 H Urine Glucose (UA) Negative Urine Ketones Negative Urine Blood Negative Urine Nitrate Negative Urine Bilirubin Small H Urine Urobilinogen 4.0 H Ur Leukocyte Esterase Negative Urine RBC 0 - 2 Urine WBC 0 - 2 Ur Epithelial Cells 0 - 2 Urine Bacteria Rare Urine Opiates Screen Urine Methadone Screen Acetaminophen Ur Barbiturates Screen Ur Phencyclidine Scrn Ur Amphetamines Screen U Benzodiazepines Scrn U Oth Cocaine Metabols U Cannabinoids Screen Alcohol, Quantitative Hepatitis A IgM Ab Hep Bs Antigen Hep B Core IgM Ab Hepatitis C Antibody HIV 1&2 Antibody Screen 04/04/18 04/04/18 04/04/18 05:30 05:30 05:30 WBC RBC Hgb Hct MCV MCH MCHC RDW Plt Count MPV Gran % Lymph % (Auto) [place] % (Auto) Eos % (Auto) Baso % (Auto) Gran # Lymph # (Auto) [place] # (Auto) Eos # (Auto) Baso # (Auto) Differential Comment ESR Retic Count Haptoglobin PT 23.7 H INR 2.03 APTT 29.3 D-Dimer, Quantitative Sodium 132 Potassium 5.7 H* D Chloride 101 Carbon Dioxide 22 Anion Gap 15 BUN 17 Creatinine 0.8 Est GFR ( Amer) > 60 Est GFR (Non-Af Amer) > 60 POC Glucose (mg/dL) Random Glucose 132 H Hemoglobin A1c Calcium 8.7 Phosphorus 5.0 H Magnesium 1.8 Iron TIBC % Saturation Transferrin Ferritin 64.5 Total Bilirubin 3.1 H Direct Bilirubin 1.6 H GGT 149 H AST 613 H D ALT 330 H Alkaline Phosphatase 151 H Ammonia Lactate Dehydrogenase Total Creatine Kinase Troponin I < 0.01 NT-Pro-B Natriuret Pep Total Protein 6.9 Albumin 3.4 Globulin 3.5 Albumin/Globulin Ratio 1.0 L Triglycerides 69 Cholesterol 56 L LDL Cholesterol Direct 51 HDL Cholesterol 15 L Lipase Free T4 5.91 H Thyroxine (T4) 20.2 H Free T3 pg/mL 13.30 H TSH 3rd Generation < 0.02 L Cortisol AM Sample Urine Color Urine Appearance Urine pH Ur Specific [place] Urine Protein Urine Glucose (UA) Urine Ketones Urine Blood Urine Nitrate Urine Bilirubin Urine Urobilinogen Ur Leukocyte Esterase Urine RBC Urine WBC Ur Epithelial Cells Urine Bacteria Urine Opiates Screen Urine Methadone Screen Acetaminophen Ur Barbiturates Screen Ur Phencyclidine Scrn Ur Amphetamines Screen U Benzodiazepines Scrn U Oth Cocaine Metabols U Cannabinoids Screen Alcohol, Quantitative Hepatitis A IgM Ab Hep Bs Antigen Hep B Core IgM Ab Hepatitis C Antibody HIV 1&2 Antibody Screen 04/04/18 04/04/18 04/04/18 05:30 05:30 05:30 WBC RBC Hgb Hct MCV MCH MCHC RDW Plt Count MPV Gran % Lymph % (Auto) [place] % (Auto) Eos % (Auto) Baso % (Auto) Gran # Lymph # (Auto) [place] # (Auto) Eos # (Auto) Baso # (Auto) Differential Comment ESR Retic Count Haptoglobin PT INR APTT D-Dimer, Quantitative Sodium Potassium Chloride Carbon Dioxide Anion Gap BUN Creatinine Est GFR ( Amer) Est GFR (Non-Af Amer) POC Glucose (mg/dL) Random Glucose Hemoglobin A1c 5.7 Calcium Phosphorus Magnesium Iron TIBC % Saturation Transferrin Ferritin Total Bilirubin Direct Bilirubin GGT AST ALT Alkaline Phosphatase Ammonia Lactate Dehydrogenase TNP Total Creatine Kinase 55 Troponin I TNP NT-Pro-B Natriuret Pep Total Protein Albumin Globulin Albumin/Globulin Ratio Triglycerides Cholesterol LDL Cholesterol Direct HDL Cholesterol Lipase Free T4 Thyroxine (T4) Free T3 pg/mL TSH 3rd Generation Cortisol AM Sample 61.9 H Urine Color Urine Appearance Urine pH Ur Specific [place] Urine Protein Urine Glucose (UA) Urine Ketones Urine Blood Urine Nitrate Urine Bilirubin Urine Urobilinogen Ur Leukocyte Esterase Urine RBC Urine WBC Ur Epithelial Cells Urine Bacteria Urine Opiates Screen Urine Methadone Screen Acetaminophen Ur Barbiturates Screen Ur Phencyclidine Scrn Ur Amphetamines Screen U Benzodiazepines Scrn U Oth Cocaine Metabols U Cannabinoids Screen Alcohol, Quantitative Hepatitis A IgM Ab Hep Bs Antigen Hep B Core IgM Ab Hepatitis C Antibody HIV 1&2 Antibody Screen 04/04/18 04/04/18 04/04/18 06:00 06:00 13:52 WBC RBC Hgb Hct MCV MCH MCHC RDW Plt Count MPV Gran % Lymph % (Auto) [place] % (Auto) Eos % (Auto) Baso % (Auto) Gran # Lymph # (Auto) [place] # (Auto) Eos # (Auto) Baso # (Auto) Differential Comment ESR Retic Count Haptoglobin PT 32.9 H INR 2.80 APTT D-Dimer, Quantitative Sodium Potassium Chloride Carbon Dioxide Anion Gap BUN Creatinine Est GFR ( Amer) Est GFR (Non-Af Amer) POC Glucose (mg/dL) Random Glucose Hemoglobin A1c Calcium Phosphorus Magnesium Iron TIBC % Saturation Transferrin Ferritin Total Bilirubin Direct Bilirubin GGT AST ALT Alkaline Phosphatase Ammonia Lactate Dehydrogenase 2632 H Total Creatine Kinase Troponin I NT-Pro-B Natriuret Pep Total Protein Albumin Globulin Albumin/Globulin Ratio Triglycerides Cholesterol LDL Cholesterol Direct HDL Cholesterol Lipase Free T4 Thyroxine (T4) Free T3 pg/mL TSH 3rd Generation Cortisol AM Sample Urine Color Urine Appearance Urine pH Ur Specific [place] Urine Protein Urine Glucose (UA) Urine Ketones Urine Blood Urine Nitrate Urine Bilirubin Urine Urobilinogen Ur Leukocyte Esterase Urine RBC Urine WBC Ur Epithelial Cells Urine Bacteria Urine Opiates Screen Urine Methadone Screen Acetaminophen < 10.0 L Ur Barbiturates Screen Ur Phencyclidine Scrn Ur Amphetamines Screen U Benzodiazepines Scrn U Oth Cocaine Metabols U Cannabinoids Screen Alcohol, Quantitative Hepatitis A IgM Ab Hep Bs Antigen Hep B Core IgM Ab Hepatitis C Antibody HIV 1&2 Antibody Screen 04/04/18 04/04/1818 13:52 17:30 17:30 WBC RBC Hgb Hct MCV MCH MCHC RDW Plt Count MPV Gran % Lymph % (Auto) [place] % (Auto) Eos % (Auto) Baso % (Auto) Gran # Lymph # (Auto) [place] # (Auto) Eos # (Auto) Baso # (Auto) Differential Comment ESR Retic Count Haptoglobin PT INR APTT D-Dimer, Quantitative Sodium 134 131 L Potassium 5.0 4.6 Chloride 98 95 L Carbon Dioxide 21 23 Anion Gap 20 18 BUN 21 22 H Creatinine 0.8 0.8 Est GFR ( Amer) > 60 > 60 Est GFR (Non-Af Amer) > 60 > 60 POC Glucose (mg/dL) Random Glucose 262 H 208 H Hemoglobin A1c Calcium 8.4 8.3 L Phosphorus Magnesium Iron TIBC % Saturation Transferrin Ferritin Total Bilirubin 3.1 H 2.4 H Direct Bilirubin 1.7 H 1.4 H GGT 122 H 128 H AST 851 H D 1215 H ALT 443 H 591 H Alkaline Phosphatase 31 L D 75 Ammonia < 9 L Lactate Dehydrogenase Total Creatine Kinase Troponin I NT-Pro-B Natriuret Pep Total Protein 6.4 6.8 Albumin 3.2 3.4 Globulin 3.2 3.4 Albumin/Globulin Ratio 1.0 L 1.0 L Triglycerides Cholesterol LDL Cholesterol Direct HDL Cholesterol Lipase Free T4 Thyroxine (T4) Free T3 pg/mL TSH 3rd Generation Cortisol AM Sample Urine Color Urine Appearance Urine pH Ur Specific [place] Urine Protein Urine Glucose (UA) Urine Ketones Urine Blood Urine Nitrate Urine Bilirubin Urine Urobilinogen Ur Leukocyte Esterase Urine RBC Urine WBC Ur Epithelial Cells Urine Bacteria Urine Opiates Screen Urine Methadone Screen Acetaminophen Ur Barbiturates Screen Ur Phencyclidine Scrn Ur Amphetamines Screen U Benzodiazepines Scrn U Oth Cocaine Metabols U Cannabinoids Screen Alcohol, Quantitative Hepatitis A IgM Ab Hep Bs Antigen Hep B Core IgM Ab Hepatitis C Antibody HIV 1&2 Antibody Screen EKG/Cardiology Studies: Cardiology / EKG Studies 04/03/18 18:23 EKG [ELECTROCARDIOGRAM] Stat Comment: Reason For Exam: medical clearance 04/03/18 18:55 EKG [ELECTROCARDIOGRAM] Stat Comment: Reason For Exam: SIDE PAIN 04/04/18 07:00 EKG [ELECTROCARDIOGRAM] Routine Comment: Reason For Exam: prior AFib Critical Care Progress Note - Nutrition Nutrition: Nutrition Category Date Time Status Heart Healthy Diet [DIET] Diets 04/03/18 Breakfast Active Addendum Addendum: 04/04/18 18:33 MICU attending addendum: Patient seen and examined with housestaff, discussed on rounds. Agree with note above with following add/exceptions: 27M admitted to the ED feeling unwell found to be in rapid afib in addition to labs suggestive of thyrotoxicosis. He was initially treated for thyrotoxicosis with methimazole, propanolol, and steroids. His follow up lab work also showed worsening liver injury. Liver US did not show portal thrombosis. 2D echo completed shows bi-ventricular failure with EF 20%. It is possible his multiorgan failure can all be attributed to his thyrotoxicosis which is being managed by our endo service. Cardiomyopathy, although rare, is a known complication for thrytoxicosis. His BL effusions are a result as well and we will tx him with lasix 40IV BID. He is already getting propanolol as bb. Most concerning is his liver injury which is getting worse. The synthetic function of the liver is declining as represented by increasing INR, LFTs and Bili. GI is on board and we will follow their recs. GI has recommended transfer to another facility and I believe this appropriate. [facility] has been called by the primary team and they have accepted the patient. Will manage as above until transfer arrived Rest of care as above Maine Bae MD Pulmonary Critical Care and Sleep CC Time: 50 minutes spent discussing the case with patient, medical team, GI team and working on his transfer 04/04/18 18:56
[2018-04-04 12:56] LABS: HEPATITIS A IGM NEGATIVE (NEGATIVE); HEPATITIS B CORE AB NEGATIVE (NEGATIVE)
[2018-04-04 13:06] LABS: HEPATITIS C ANTIBODY NEGATIVE (NEGATIVE)
--- NOTE | 2018-04-04 13:18 | CP.CCUPN ---
CCU Subjective - Physician Review Subjective (Free Text): CRITICAL CARE PROGRESS NOTE FOR DR. CLOVIS Shah PGY-1 CCU Objective - Vital Signs / Intake & Output Vital Signs (Last 4 hours): Vital Signs Pulse BP 04/04/18 12:59 123 H 124/66 04/04/18 11:06 125/53 L 04/04/18 10:44 125/53 L Intake and Output (Last 8hrs): Intake & Output 04/03/18 04/04/18 04/04/18 22:59 06:59 14:59 Intake Total 960 Output Total 402 Balance 558 Weight 58.967 kg 62.641 kg Intake: Oral 960 Output: Urine 400 Urine, Voided 400 Stool 1 Emesis 1 - Physical Exam Head: Positive for: Atraumatic, Normocephalic Pupils: Positive for: PERRL Extroacular Muscles: Positive for: EOMI Conjunctiva: Positive for: Icteric Mouth: Positive for: Moist Mucous Membranes Neck: Positive for: Normal Range of Motion Respiratory/Chest: Positive for: Clear to Auscultation, Good Air Exchange, Rhonchi (RLL). Negative for: Respiratory Distress, Accessory Muscle Use Cardiovascular: Positive for: Regular Rate and Rhythm, Normal S1, S2. Negative for: Murmurs Abdomen: Positive for: Distention. Negative for: Tenderness, Peritoneal Signs, Rebound, Guarding Back: Positive for: Normal Inspection Upper Extremity: Positive for: Normal Inspection. Negative for: Cyanosis, Edema Lower Extremity: Positive for: Normal Inspection. Negative for: Edema Neurological: Positive for: GCS=15, CN II-XII Intact, Speech Normal Skin: Positive for: Warm, Dry, Rashes (mild jaundice) Psychiatric: Positive for: Alert, Oriented x 3, Normal Insight, Normal Concentration - Medications Active Medications: Active Medications Generic Name Dose Route Start Last Admin Trade Name Freq PRN Reason Stop Dose Admin Albuterol Sulfate 2.5 mg 04/04/18 00:00 04/04/18 08:13 Albuterol 0.083% Inhal Sandra (2.5 Mg/3 Ml) Ud IH Not Given Q4 ALLEY Cholestyramine Resin 4 gm 04/03/18 22:00 04/04/18 10:45 Questran PO 4 gm QID ALLEY Administration Enoxaparin Sodium 40 mg 04/04/18 10:00 04/04/18 10:52 Lovenox SC 40 mg DAILY ALLEY Administration Protocol Hydrocortisone Sodium Succinate 100 mg 04/03/18 22:00 04/04/18 08:03 Solu-Cortef IVP 100 mg Q8 ALLEY Administration Acetylcysteine 3,130 mg/ 515.65 mls @ 125 mls/hr 04/04/18 10:25 Dextrose IVPB 04/04/18 14:32 ONCE ONE Acetylcysteine 6,260 mg/ 1,031.3 mls @ 62.5 mls/hr 04/04/18 14:30 Dextrose IVPB 04/05/18 07:00 ONCE ONE Methimazole 20 mg 04/04/18 00:00 04/04/18 12:57 Tapazole PO 20 mg Q6 ALLEY Administration Ondansetron HCl 4 mg 04/04/18 01:00 04/04/18 09:14 Zofran Inj IVP 4 mg Q4H PRN Administration Nausea/Vomiting Pantoprazole Sodium 40 mg 04/04/18 06:00 04/04/18 08:03 Protonix Ec Tab PO 40 mg 0600 ALLEY Administration Propranolol HCl 10 mg 04/04/18 00:00 04/04/18 12:59 Inderal PO 10 mg Q6 ALLEY Administration - Patient Studies Lab Studies: Lab Studies 04/04/18 04/04/18 04/04/18 Range/Units 06:00 06:00 05:30 WBC (4.5-11.0) 10^3/uL RBC (3.5-6.1) 10^6/uL Hgb (14.0-18.0) g/dL Hct (42.0-52.0) % MCV (80.0-105.0) fl MCH (25.0-35.0) pg MCHC (31.0-37.0) g/dl RDW (11.5-14.5) % Plt Count (120.0-450.0) 10^3/uL MPV (7.0-11.0) fl Gran % (50.0-68.0) % Lymph % (Auto) (22.0-35.0) % [place] % (Auto) (1.0-6.0) % Eos % (Auto) (1.5-5.0) % Baso % (Auto) (0.0-3.0) % Gran # (1.4-6.5) Lymph # (Auto) (1.2-3.4) [place] # (Auto) (0.1-0.6) Eos # (Auto) (0.0-0.7) Baso # (Auto) (0.0-2.0) K/mm3 Differential Comment ESR (0.0-15.0) mm/hr Retic Count (0.5-1.5) % Haptoglobin (30.0-200.0) mg/dL PT (9.4-12.5) SECONDS INR APTT (25.1-36.5) Seconds D-Dimer, Quantitative (0-243) ng/mlDDU Sodium (132-148) mmol/L Potassium (3.6-5.0) mmol/L Chloride (98-107) mmol/L Carbon Dioxide (21-33) mmol/L Anion Gap (10-20) BUN (7-21) mg/dL Creatinine (0.8-1.5) mg/dl Est GFR ( Amer) Est GFR (Non-Af Amer) POC Glucose (mg/dL) (65-110) mg/dL Random Glucose (70-110) mg/dL Hemoglobin A1c (4.2-6.5) % Calcium (8.4-10.5) mg/dL Phosphorus (2.5-4.5) mg/dL Magnesium (1.7-2.2) mg/dL Iron (45-180) ug/dL TIBC (261-462) ug/dL % Saturation (20-55) % Transferrin (206-381) mg/dL Total Bilirubin (0.2-1.3) mg/dL Direct Bilirubin (0.0-0.4) mg/dL GGT (8-78) U/L AST (17-59) U/L ALT (7-56) U/L Alkaline Phosphatase (38-126) U/L Ammonia (9-33) umol/L Lactate Dehydrogenase 2632 H TNP Total Creatine Kinase 55 (35-230) U/L Troponin I TNP ng/mL NT-Pro-B Natriuret Pep (0-450) pg/mL Total Protein (5.8-8.3) g/dL Albumin (3.0-4.8) g/dL Globulin gm/dL Albumin/Globulin Ratio (1.1-1.8) Triglycerides (35-160) mg/dL Cholesterol (130-200) mg/dL LDL Cholesterol Direct (0-129) mg/dL HDL Cholesterol (29-60) mg/dL Lipase (23-300) U/L Free T4 (0.78-2.19) ng/dL Thyroxine (T4) (5.5-11.0) ug/dL Free T3 pg/mL (2.77-5.27) pg/mL TSH 3rd Generation (0.46-4.68) mIU/mL Urine Color (YELLOW) Urine Appearance (CLEAR) Urine pH (4.7-8.0) Ur Specific [place] (1.005-1.035) Urine Protein (<30 mg/dL) mg/dL Urine Glucose (UA) (NEGATIVE) mg/dL Urine Ketones (NEGATIVE) mg/dL Urine Blood (NEGATIVE) Urine Nitrate (NEGATIVE) Urine Bilirubin (NEGATIVE) Urine Urobilinogen (<1 E.U./dL) E.U./dL Ur Leukocyte Esterase (NEGATIVE) Elsa/uL Urine RBC (0-2) /hpf Urine WBC (0-6) /hpf Ur Epithelial Cells (0-5) /hpf Urine Bacteria (NEG) Urine Opiates Screen (NEGATIVE) Urine Methadone Screen (NEGATIVE) Acetaminophen < 10.0 L (10.0-20.0) ug/ml Ur Barbiturates Screen (NEGATIVE) Ur Phencyclidine Scrn (NEGATIVE) Ur Amphetamines Screen (NEGATIVE) U Benzodiazepines Scrn (NEGATIVE) U Oth Cocaine Metabols (NEGATIVE) U Cannabinoids Screen (NEGATIVE) Alcohol, Quantitative (0-10) mg/dL Hepatitis A IgM Ab (NEGATIVE) Hep Bs Antigen (NEGATIVE) Hep B Core IgM Ab (NEGATIVE) Hepatitis C Antibody (NEGATIVE) HIV 1&2 Antibody Screen (NEGATIVE) 04/04/18 04/04/18 04/04/18 Range/Units 05:30 05:30 05:30 WBC (4.5-11.0) 10^3/uL RBC (3.5-6.1) 10^6/uL Hgb (14.0-18.0) g/dL Hct (42.0-52.0) % MCV (80.0-105.0) fl MCH (25.0-35.0) pg MCHC (31.0-37.0) g/dl RDW (11.5-14.5) % Plt Count (120.0-450.0) 10^3/uL MPV (7.0-11.0) fl Gran % (50.0-68.0) % Lymph % (Auto) (22.0-35.0) % [place] % (Auto) (1.0-6.0) % Eos % (Auto) (1.5-5.0) % Baso % (Auto) (0.0-3.0) % Gran # (1.4-6.5) Lymph # (Auto) (1.2-3.4) [place] # (Auto) (0.1-0.6) Eos # (Auto) (0.0-0.7) Baso # (Auto) (0.0-2.0) K/mm3 Differential Comment ESR (0.0-15.0) mm/hr Retic Count (0.5-1.5) % Haptoglobin (30.0-200.0) mg/dL PT 23.7 H (9.4-12.5) SECONDS INR 2.03 APTT 29.3 (25.1-36.5) Seconds D-Dimer, Quantitative (0-243) ng/mlDDU Sodium (132-148) mmol/L Potassium (3.6-5.0) mmol/L Chloride (98-107) mmol/L Carbon Dioxide (21-33) mmol/L Anion Gap (10-20) BUN (7-21) mg/dL Creatinine (0.8-1.5) mg/dl Est GFR ( Amer) Est GFR (Non-Af Amer) POC Glucose (mg/dL) (65-110) mg/dL Random Glucose (70-110) mg/dL Hemoglobin A1c 5.7 (4.2-6.5) % Calcium (8.4-10.5) mg/dL Phosphorus (2.5-4.5) mg/dL Magnesium (1.7-2.2) mg/dL Iron (45-180) ug/dL TIBC (261-462) ug/dL % Saturation (20-55) % Transferrin (206-381) mg/dL Total Bilirubin (0.2-1.3) mg/dL Direct Bilirubin (0.0-0.4) mg/dL GGT (8-78) U/L AST (17-59) U/L ALT (7-56) U/L Alkaline Phosphatase (38-126) U/L Ammonia (9-33) umol/L Lactate Dehydrogenase Total Creatine Kinase (35-230) U/L Troponin I ng/mL NT-Pro-B Natriuret Pep (0-450) pg/mL Total Protein (5.8-8.3) g/dL Albumin (3.0-4.8) g/dL Globulin gm/dL Albumin/Globulin Ratio (1.1-1.8) Triglycerides (35-160) mg/dL Cholesterol (130-200) mg/dL LDL Cholesterol Direct (0-129) mg/dL HDL Cholesterol (29-60) mg/dL Lipase (23-300) U/L Free T4 5.91 H (0.78-2.19) ng/dL Thyroxine (T4) 20.2 H (5.5-11.0) ug/dL Free T3 pg/mL (2.77-5.27) pg/mL TSH 3rd Generation < 0.02 L (0.46-4.68) mIU/mL Urine Color (YELLOW) Urine Appearance (CLEAR) Urine pH (4.7-8.0) Ur Specific [place] (1.005-1.035) Urine Protein (<30 mg/dL) mg/dL Urine Glucose (UA) (NEGATIVE) mg/dL Urine Ketones (NEGATIVE) mg/dL Urine Blood (NEGATIVE) Urine Nitrate (NEGATIVE) Urine Bilirubin (NEGATIVE) Urine Urobilinogen (<1 E.U./dL) E.U./dL Ur Leukocyte Esterase (NEGATIVE) Elsa/uL Urine RBC (0-2) /hpf Urine WBC (0-6) /hpf Ur Epithelial Cells (0-5) /hpf Urine Bacteria (NEG) Urine Opiates Screen (NEGATIVE) Urine Methadone Screen (NEGATIVE) Acetaminophen (10.0-20.0) ug/ml Ur Barbiturates Screen (NEGATIVE) Ur Phencyclidine Scrn (NEGATIVE) Ur Amphetamines Screen (NEGATIVE) U Benzodiazepines Scrn (NEGATIVE) U Oth Cocaine Metabols (NEGATIVE) U Cannabinoids Screen (NEGATIVE) Alcohol, Quantitative (0-10) mg/dL Hepatitis A IgM Ab (NEGATIVE) Hep Bs Antigen (NEGATIVE) Hep B Core IgM Ab (NEGATIVE) Hepatitis C Antibody (NEGATIVE) HIV 1&2 Antibody Screen (NEGATIVE) 04/04/18 04/04/18 04/04/18 Range/Units 05:30 05:30 05:30 WBC 4.5 D (4.5-11.0) 10^3/uL RBC 4.71 (3.5-6.1) 10^6/uL Hgb 11.8 L (14.0-18.0) g/dL Hct 36.2 L (42.0-52.0) % MCV 76.9 L (80.0-105.0) fl MCH 25.1 (25.0-35.0) pg MCHC 32.6 (31.0-37.0) g/dl RDW 13.3 (11.5-14.5) % Plt Count 165 (120.0-450.0) 10^3/uL MPV (7.0-11.0) fl Gran % 70.1 H (50.0-68.0) % Lymph % (Auto) 20.8 L (22.0-35.0) % [place] % (Auto) 9.1 H (1.0-6.0) % Eos % (Auto) 0.0 L (1.5-5.0) % Baso % (Auto) 0.0 (0.0-3.0) % Gran # 3.17 (1.4-6.5) Lymph # (Auto) 0.9 L (1.2-3.4) [place] # (Auto) 0.4 (0.1-0.6) Eos # (Auto) 0.0 (0.0-0.7) Baso # (Auto) 0.00 (0.0-2.0) K/mm3 Differential Comment ESR 7 (0.0-15.0) mm/hr Retic Count (0.5-1.5) % Haptoglobin 50.0 (30.0-200.0) mg/dL PT (9.4-12.5) SECONDS INR APTT (25.1-36.5) Seconds D-Dimer, Quantitative (0-243) ng/mlDDU Sodium 132 (132-148) mmol/L Potassium 5.7 H* D (3.6-5.0) mmol/L Chloride 101 (98-107) mmol/L Carbon Dioxide 22 (21-33) mmol/L Anion Gap 15 (10-20) BUN 17 (7-21) mg/dL Creatinine 0.8 (0.8-1.5) mg/dl Est GFR ( Amer) > 60 Est GFR (Non-Af Amer) > 60 POC Glucose (mg/dL) (65-110) mg/dL Random Glucose 132 H (70-110) mg/dL Hemoglobin A1c (4.2-6.5) % Calcium 8.7 (8.4-10.5) mg/dL Phosphorus 5.0 H (2.5-4.5) mg/dL Magnesium 1.8 (1.7-2.2) mg/dL Iron (45-180) ug/dL TIBC (261-462) ug/dL % Saturation (20-55) % Transferrin (206-381) mg/dL Total Bilirubin 3.1 H (0.2-1.3) mg/dL Direct Bilirubin 1.6 H (0.0-0.4) mg/dL GGT 149 H (8-78) U/L AST 613 H D (17-59) U/L ALT 330 H (7-56) U/L Alkaline Phosphatase 151 H (38-126) U/L Ammonia (9-33) umol/L Lactate Dehydrogenase Total Creatine Kinase (35-230) U/L Troponin I < 0.01 ng/mL NT-Pro-B Natriuret Pep (0-450) pg/mL Total Protein 6.9 (5.8-8.3) g/dL Albumin 3.4 (3.0-4.8) g/dL Globulin 3.5 gm/dL Albumin/Globulin Ratio 1.0 L (1.1-1.8) Triglycerides 69 (35-160) mg/dL Cholesterol 56 L (130-200) mg/dL LDL Cholesterol Direct 51 (0-129) mg/dL HDL Cholesterol 15 L (29-60) mg/dL Lipase (23-300) U/L Free T4 (0.78-2.19) ng/dL Thyroxine (T4) (5.5-11.0) ug/dL Free T3 pg/mL (2.77-5.27) pg/mL TSH 3rd Generation (0.46-4.68) mIU/mL Urine Color (YELLOW) Urine Appearance (CLEAR) Urine pH (4.7-8.0) Ur Specific [place] (1.005-1.035) Urine Protein (<30 mg/dL) mg/dL Urine Glucose (UA) (NEGATIVE) mg/dL Urine Ketones (NEGATIVE) mg/dL Urine Blood (NEGATIVE) Urine Nitrate (NEGATIVE) Urine Bilirubin (NEGATIVE) Urine Urobilinogen (<1 E.U./dL) E.U./dL Ur Leukocyte Esterase (NEGATIVE) Elsa/uL Urine RBC (0-2) /hpf Urine WBC (0-6) /hpf Ur Epithelial Cells (0-5) /hpf Urine Bacteria (NEG) Urine Opiates Screen (NEGATIVE) Urine Methadone Screen (NEGATIVE) Acetaminophen (10.0-20.0) ug/ml Ur Barbiturates Screen (NEGATIVE) Ur Phencyclidine Scrn (NEGATIVE) Ur Amphetamines Screen (NEGATIVE) U Benzodiazepines Scrn (NEGATIVE) U Oth Cocaine Metabols (NEGATIVE) U Cannabinoids Screen (NEGATIVE) Alcohol, Quantitative (0-10) mg/dL Hepatitis A IgM Ab (NEGATIVE) Hep Bs Antigen (NEGATIVE) Hep B Core IgM Ab (NEGATIVE) Hepatitis C Antibody (NEGATIVE) HIV 1&2 Antibody Screen (NEGATIVE) 04/04/18 04/04/18 04/03/18 Range/Units 01:35 01:35 22:24 WBC (4.5-11.0) 10^3/uL RBC (3.5-6.1) 10^6/uL Hgb (14.0-18.0) g/dL Hct (42.0-52.0) % MCV (80.0-105.0) fl MCH (25.0-35.0) pg MCHC (31.0-37.0) g/dl RDW (11.5-14.5) % Plt Count (120.0-450.0) 10^3/uL MPV (7.0-11.0) fl Gran % (50.0-68.0) % Lymph % (Auto) (22.0-35.0) % [place] % (Auto) (1.0-6.0) % Eos % (Auto) (1.5-5.0) % Baso % (Auto) (0.0-3.0) % Gran # (1.4-6.5) Lymph # (Auto) (1.2-3.4) [place] # (Auto) (0.1-0.6) Eos # (Auto) (0.0-0.7) Baso # (Auto) (0.0-2.0) K/mm3 Differential Comment ESR (0.0-15.0) mm/hr Retic Count (0.5-1.5) % Haptoglobin (30.0-200.0) mg/dL PT (9.4-12.5) SECONDS INR APTT (25.1-36.5) Seconds D-Dimer, Quantitative (0-243) ng/mlDDU Sodium (132-148) mmol/L Potassium (3.6-5.0) mmol/L Chloride (98-107) mmol/L Carbon Dioxide (21-33) mmol/L Anion Gap (10-20) BUN (7-21) mg/dL Creatinine (0.8-1.5) mg/dl Est GFR ( Amer) Est GFR (Non-Af Amer) POC Glucose (mg/dL) (65-110) mg/dL Random Glucose (70-110) mg/dL Hemoglobin A1c (4.2-6.5) % Calcium (8.4-10.5) mg/dL Phosphorus (2.5-4.5) mg/dL Magnesium (1.7-2.2) mg/dL Iron (45-180) ug/dL TIBC (261-462) ug/dL % Saturation (20-55) % Transferrin (206-381) mg/dL Total Bilirubin (0.2-1.3) mg/dL Direct Bilirubin (0.0-0.4) mg/dL GGT (8-78) U/L AST (17-59) U/L ALT (7-56) U/L Alkaline Phosphatase (38-126) U/L Ammonia (9-33) umol/L Lactate Dehydrogenase Total Creatine Kinase (35-230) U/L Troponin I ng/mL NT-Pro-B Natriuret Pep (0-450) pg/mL Total Protein (5.8-8.3) g/dL Albumin (3.0-4.8) g/dL Globulin gm/dL Albumin/Globulin Ratio (1.1-1.8) Triglycerides (35-160) mg/dL Cholesterol (130-200) mg/dL LDL Cholesterol Direct (0-129) mg/dL HDL Cholesterol (29-60) mg/dL Lipase (23-300) U/L Free T4 (0.78-2.19) ng/dL Thyroxine (T4) (5.5-11.0) ug/dL Free T3 pg/mL (2.77-5.27) pg/mL TSH 3rd Generation (0.46-4.68) mIU/mL Urine Color Yellow (YELLOW) Urine Appearance Clear (CLEAR) Urine pH 6.5 (4.7-8.0) Ur Specific [place] <= 1.005 (1.005-1.035) Urine Protein 100 H (<30 mg/dL) mg/dL Urine Glucose (UA) Negative (NEGATIVE) mg/dL Urine Ketones Negative (NEGATIVE) mg/dL Urine Blood Negative (NEGATIVE) Urine Nitrate Negative (NEGATIVE) Urine Bilirubin Small H (NEGATIVE) Urine Urobilinogen 4.0 H (<1 E.U./dL) E.U./dL Ur Leukocyte Esterase Negative (NEGATIVE) Elsa/uL Urine RBC 0 - 2 (0-2) /hpf Urine WBC 0 - 2 (0-6) /hpf Ur Epithelial Cells 0 - 2 (0-5) /hpf Urine Bacteria Rare (NEG) Urine Opiates Screen Negative (NEGATIVE) Urine Methadone Screen Negative (NEGATIVE) Acetaminophen (10.0-20.0) ug/ml Ur Barbiturates Screen Negative (NEGATIVE) Ur Phencyclidine Scrn Negative (NEGATIVE) Ur Amphetamines Screen Negative (NEGATIVE) U Benzodiazepines Scrn Negative (NEGATIVE) U Oth Cocaine Metabols Negative (NEGATIVE) U Cannabinoids Screen Positive H (NEGATIVE) Alcohol, Quantitative (0-10) mg/dL Hepatitis A IgM Ab (NEGATIVE) Hep Bs Antigen (NEGATIVE) Hep B Core IgM Ab (NEGATIVE) Hepatitis C Antibody (NEGATIVE) HIV 1&2 Antibody Screen Negative (NEGATIVE) 04/03/18 04/03/18 04/03/18 Range/Units 22:24 22:24 22:24 WBC (4.5-11.0) 10^3/uL RBC (3.5-6.1) 10^6/uL Hgb (14.0-18.0) g/dL Hct (42.0-52.0) % MCV (80.0-105.0) fl MCH (25.0-35.0) pg MCHC (31.0-37.0) g/dl RDW (11.5-14.5) % Plt Count (120.0-450.0) 10^3/uL MPV (7.0-11.0) fl Gran % (50.0-68.0) % Lymph % (Auto) (22.0-35.0) % [place] % (Auto) (1.0-6.0) % Eos % (Auto) (1.5-5.0) % Baso % (Auto) (0.0-3.0) % Gran # (1.4-6.5) Lymph # (Auto) (1.2-3.4) [place] # (Auto) (0.1-0.6) Eos # (Auto) (0.0-0.7) Baso # (Auto) (0.0-2.0) K/mm3 Differential Comment ESR (0.0-15.0) mm/hr Retic Count (0.5-1.5) % Haptoglobin (30.0-200.0) mg/dL PT (9.4-12.5) SECONDS INR APTT (25.1-36.5) Seconds D-Dimer, Quantitative (0-243) ng/mlDDU Sodium (132-148) mmol/L Potassium (3.6-5.0) mmol/L Chloride (98-107) mmol/L Carbon Dioxide (21-33) mmol/L Anion Gap (10-20) BUN (7-21) mg/dL Creatinine (0.8-1.5) mg/dl Est GFR ( Amer) Est GFR (Non-Af Amer) POC Glucose (mg/dL) (65-110) mg/dL Random Glucose (70-110) mg/dL Hemoglobin A1c (4.2-6.5) % Calcium (8.4-10.5) mg/dL Phosphorus (2.5-4.5) mg/dL Magnesium (1.7-2.2) mg/dL Iron (45-180) ug/dL TIBC (261-462) ug/dL % Saturation (20-55) % Transferrin (206-381) mg/dL Total Bilirubin (0.2-1.3) mg/dL Direct Bilirubin (0.0-0.4) mg/dL GGT (8-78) U/L AST (17-59) U/L ALT (7-56) U/L Alkaline Phosphatase (38-126) U/L Ammonia < 9 L (9-33) umol/L Lactate Dehydrogenase Total Creatine Kinase (35-230) U/L Troponin I ng/mL NT-Pro-B Natriuret Pep (0-450) pg/mL Total Protein (5.8-8.3) g/dL Albumin (3.0-4.8) g/dL Globulin gm/dL Albumin/Globulin Ratio (1.1-1.8) Triglycerides (35-160) mg/dL Cholesterol (130-200) mg/dL LDL Cholesterol Direct (0-129) mg/dL HDL Cholesterol (29-60) mg/dL Lipase (23-300) U/L Free T4 (0.78-2.19) ng/dL Thyroxine (T4) (5.5-11.0) ug/dL Free T3 pg/mL (2.77-5.27) pg/mL TSH 3rd Generation (0.46-4.68) mIU/mL Urine Color (YELLOW) Urine Appearance (CLEAR) Urine pH (4.7-8.0) Ur Specific [place] (1.005-1.035) Urine Protein (<30 mg/dL) mg/dL Urine Glucose (UA) (NEGATIVE) mg/dL Urine Ketones (NEGATIVE) mg/dL Urine Blood (NEGATIVE) Urine Nitrate (NEGATIVE) Urine Bilirubin (NEGATIVE) Urine Urobilinogen (<1 E.U./dL) E.U./dL Ur Leukocyte Esterase (NEGATIVE) Elsa/uL Urine RBC (0-2) /hpf Urine WBC (0-6) /hpf Ur Epithelial Cells (0-5) /hpf Urine Bacteria (NEG) Urine Opiates Screen (NEGATIVE) Urine Methadone Screen (NEGATIVE) Acetaminophen (10.0-20.0) ug/ml Ur Barbiturates Screen (NEGATIVE) Ur Phencyclidine Scrn (NEGATIVE) Ur Amphetamines Screen (NEGATIVE) U Benzodiazepines Scrn (NEGATIVE) U Oth Cocaine Metabols (NEGATIVE) U Cannabinoids Screen (NEGATIVE) Alcohol, Quantitative < 10 (0-10) mg/dL Hepatitis A IgM Ab Negative (NEGATIVE) Hep Bs Antigen Negative (NEGATIVE) Hep B Core IgM Ab Negative (NEGATIVE) Hepatitis C Antibody Negative (NEGATIVE) HIV 1&2 Antibody Screen (NEGATIVE) 04/03/18 04/03/18 04/03/18 Range/Units 22:02 22:02 20:33 WBC (4.5-11.0) 10^3/uL RBC (3.5-6.1) 10^6/uL Hgb (14.0-18.0) g/dL Hct (42.0-52.0) % MCV (80.0-105.0) fl MCH (25.0-35.0) pg MCHC (31.0-37.0) g/dl RDW (11.5-14.5) % Plt Count (120.0-450.0) 10^3/uL MPV (7.0-11.0) fl Gran % (50.0-68.0) % Lymph % (Auto) (22.0-35.0) % [place] % (Auto) (1.0-6.0) % Eos % (Auto) (1.5-5.0) % Baso % (Auto) (0.0-3.0) % Gran # (1.4-6.5) Lymph # (Auto) (1.2-3.4) [place] # (Auto) (0.1-0.6) Eos # (Auto) (0.0-0.7) Baso # (Auto) (0.0-2.0) K/mm3 Differential Comment ESR (0.0-15.0) mm/hr Retic Count (0.5-1.5) % Haptoglobin (30.0-200.0) mg/dL PT (9.4-12.5) SECONDS INR APTT (25.1-36.5) Seconds D-Dimer, Quantitative (0-243) ng/mlDDU Sodium (132-148) mmol/L Potassium (3.6-5.0) mmol/L Chloride (98-107) mmol/L Carbon Dioxide (21-33) mmol/L Anion Gap (10-20) BUN (7-21) mg/dL Creatinine (0.8-1.5) mg/dl Est GFR ( Amer) Est GFR (Non-Af Amer) POC Glucose (mg/dL) 102 (65-110) mg/dL Random Glucose (70-110) mg/dL Hemoglobin A1c (4.2-6.5) % Calcium (8.4-10.5) mg/dL Phosphorus (2.5-4.5) mg/dL Magnesium (1.7-2.2) mg/dL Iron 34 L (45-180) ug/dL TIBC 397 (261-462) ug/dL % Saturation 8 L (20-55) % Transferrin 312.10 (206-381) mg/dL Total Bilirubin (0.2-1.3) mg/dL Direct Bilirubin (0.0-0.4) mg/dL GGT (8-78) U/L AST (17-59) U/L ALT (7-56) U/L Alkaline Phosphatase (38-126) U/L Ammonia (9-33) umol/L Lactate Dehydrogenase Total Creatine Kinase (35-230) U/L Troponin I ng/mL NT-Pro-B Natriuret Pep (0-450) pg/mL Total Protein (5.8-8.3) g/dL Albumin (3.0-4.8) g/dL Globulin gm/dL Albumin/Globulin Ratio (1.1-1.8) Triglycerides (35-160) mg/dL Cholesterol (130-200) mg/dL LDL Cholesterol Direct (0-129) mg/dL HDL Cholesterol (29-60) mg/dL Lipase (23-300) U/L Free T4 (0.78-2.19) ng/dL Thyroxine (T4) (5.5-11.0) ug/dL Free T3 pg/mL (2.77-5.27) pg/mL TSH 3rd Generation (0.46-4.68) mIU/mL Urine Color (YELLOW) Urine Appearance (CLEAR) Urine pH (4.7-8.0) Ur Specific [place] (1.005-1.035) Urine Protein (<30 mg/dL) mg/dL Urine Glucose (UA) (NEGATIVE) mg/dL Urine Ketones (NEGATIVE) mg/dL Urine Blood (NEGATIVE) Urine Nitrate (NEGATIVE) Urine Bilirubin (NEGATIVE) Urine Urobilinogen (<1 E.U./dL) E.U./dL Ur Leukocyte Esterase (NEGATIVE) Elsa/uL Urine RBC (0-2) /hpf Urine WBC (0-6) /hpf Ur Epithelial Cells (0-5) /hpf Urine Bacteria (NEG) Urine Opiates Screen (NEGATIVE) Urine Methadone Screen (NEGATIVE) Acetaminophen (10.0-20.0) ug/ml Ur Barbiturates Screen (NEGATIVE) Ur Phencyclidine Scrn (NEGATIVE) Ur Amphetamines Screen (NEGATIVE) U Benzodiazepines Scrn (NEGATIVE) U Oth Cocaine Metabols (NEGATIVE) U Cannabinoids Screen (NEGATIVE) Alcohol, Quantitative (0-10) mg/dL Hepatitis A IgM Ab (NEGATIVE) Hep Bs Antigen (NEGATIVE) Hep B Core IgM Ab (NEGATIVE) Hepatitis C Antibody (NEGATIVE) HIV 1&2 Antibody Screen (NEGATIVE) 04/03/18 04/03/18 04/03/18 Range/Units 18:46 18:46 18:46 WBC (4.5-11.0) 10^3/uL RBC (3.5-6.1) 10^6/uL Hgb (14.0-18.0) g/dL Hct (42.0-52.0) % MCV (80.0-105.0) fl MCH (25.0-35.0) pg MCHC (31.0-37.0) g/dl RDW (11.5-14.5) % Plt Count (120.0-450.0) 10^3/uL MPV (7.0-11.0) fl Gran % (50.0-68.0) % Lymph % (Auto) (22.0-35.0) % [place] % (Auto) (1.0-6.0) % Eos % (Auto) (1.5-5.0) % Baso % (Auto) (0.0-3.0) % Gran # (1.4-6.5) Lymph # (Auto) (1.2-3.4) [place] # (Auto) (0.1-0.6) Eos # (Auto) (0.0-0.7) Baso # (Auto) (0.0-2.0) K/mm3 Differential Comment See pathology review ESR (0.0-15.0) mm/hr Retic Count 1.56 H (0.5-1.5) % Haptoglobin (30.0-200.0) mg/dL PT (9.4-12.5) SECONDS INR APTT (25.1-36.5) Seconds D-Dimer, Quantitative (0-243) ng/mlDDU Sodium (132-148) mmol/L Potassium (3.6-5.0) mmol/L Chloride (98-107) mmol/L Carbon Dioxide (21-33) mmol/L Anion Gap (10-20) BUN (7-21) mg/dL Creatinine (0.8-1.5) mg/dl Est GFR ( Amer) Est GFR (Non-Af Amer) POC Glucose (mg/dL) (65-110) mg/dL Random Glucose (70-110) mg/dL Hemoglobin A1c (4.2-6.5) % Calcium (8.4-10.5) mg/dL Phosphorus (2.5-4.5) mg/dL Magnesium (1.7-2.2) mg/dL Iron (45-180) ug/dL TIBC (261-462) ug/dL % Saturation (20-55) % Transferrin (206-381) mg/dL Total Bilirubin (0.2-1.3) mg/dL Direct Bilirubin (0.0-0.4) mg/dL GGT (8-78) U/L AST (17-59) U/L ALT (7-56) U/L Alkaline Phosphatase (38-126) U/L Ammonia (9-33) umol/L Lactate Dehydrogenase Total Creatine Kinase (35-230) U/L Troponin I ng/mL NT-Pro-B Natriuret Pep 4780 H (0-450) pg/mL Total Protein (5.8-8.3) g/dL Albumin (3.0-4.8) g/dL Globulin gm/dL Albumin/Globulin Ratio (1.1-1.8) Triglycerides (35-160) mg/dL Cholesterol (130-200) mg/dL LDL Cholesterol Direct (0-129) mg/dL HDL Cholesterol (29-60) mg/dL Lipase (23-300) U/L Free T4 (0.78-2.19) ng/dL Thyroxine (T4) (5.5-11.0) ug/dL Free T3 pg/mL > 22.80 H (2.77-5.27) pg/mL TSH 3rd Generation (0.46-4.68) mIU/mL Urine Color (YELLOW) Urine Appearance (CLEAR) Urine pH (4.7-8.0) Ur Specific [place] (1.005-1.035) Urine Protein (<30 mg/dL) mg/dL Urine Glucose (UA) (NEGATIVE) mg/dL Urine Ketones (NEGATIVE) mg/dL Urine Blood (NEGATIVE) Urine Nitrate (NEGATIVE) Urine Bilirubin (NEGATIVE) Urine Urobilinogen (<1 E.U./dL) E.U./dL Ur Leukocyte Esterase (NEGATIVE) Elsa/uL Urine RBC (0-2) /hpf Urine WBC (0-6) /hpf Ur Epithelial Cells (0-5) /hpf Urine Bacteria (NEG) Urine Opiates Screen (NEGATIVE) Urine Methadone Screen (NEGATIVE) Acetaminophen (10.0-20.0) ug/ml Ur Barbiturates Screen (NEGATIVE) Ur Phencyclidine Scrn (NEGATIVE) Ur Amphetamines Screen (NEGATIVE) U Benzodiazepines Scrn (NEGATIVE) U Oth Cocaine Metabols (NEGATIVE) U Cannabinoids Screen (NEGATIVE) Alcohol, Quantitative (0-10) mg/dL Hepatitis A IgM Ab (NEGATIVE) Hep Bs Antigen (NEGATIVE) Hep B Core IgM Ab (NEGATIVE) Hepatitis C Antibody (NEGATIVE) HIV 1&2 Antibody Screen (NEGATIVE) 04/03/18 04/03/18 04/03/18 Range/Units 18:46 18:46 18:46 WBC 7.0 (4.5-11.0) 10^3/uL RBC 4.52 (3.5-6.1) 10^6/uL Hgb 11.6 L (14.0-18.0) g/dL Hct 34.7 L (42.0-52.0) % MCV 76.8 L (80.0-105.0) fl MCH 25.7 (25.0-35.0) pg MCHC 33.4 (31.0-37.0) g/dl RDW 13.3 (11.5-14.5) % Plt Count 164 (120.0-450.0) 10^3/uL MPV 12.1 H (7.0-11.0) fl Gran % 58.5 (50.0-68.0) % Lymph % (Auto) 28.9 (22.0-35.0) % [place] % (Auto) 12.1 H (1.0-6.0) % Eos % (Auto) 0.4 L (1.5-5.0) % Baso % (Auto) 0.1 (0.0-3.0) % Gran # 4.06 (1.4-6.5) Lymph # (Auto) 2.0 (1.2-3.4) [place] # (Auto) 0.8 H (0.1-0.6) Eos # (Auto) 0.0 (0.0-0.7) Baso # (Auto) 0.01 (0.0-2.0) K/mm3 Differential Comment ESR (0.0-15.0) mm/hr Retic Count (0.5-1.5) % Haptoglobin (30.0-200.0) mg/dL PT (9.4-12.5) SECONDS INR APTT (25.1-36.5) Seconds D-Dimer, Quantitative (0-243) ng/mlDDU Sodium 133 (132-148) mmol/L Potassium 4.3 (3.6-5.0) mmol/L Chloride 101 (98-107) mmol/L Carbon Dioxide 24 (21-33) mmol/L Anion Gap 12 (10-20) BUN 12 (7-21) mg/dL Creatinine 0.6 L (0.8-1.5) mg/dl Est GFR ( Amer) > 60 Est GFR (Non-Af Amer) > 60 POC Glucose (mg/dL) (65-110) mg/dL Random Glucose 122 H (70-110) mg/dL Hemoglobin A1c (4.2-6.5) % Calcium 8.6 (8.4-10.5) mg/dL Phosphorus (2.5-4.5) mg/dL Magnesium 1.6 L (1.7-2.2) mg/dL Iron (45-180) ug/dL TIBC (261-462) ug/dL % Saturation (20-55) % Transferrin (206-381) mg/dL Total Bilirubin 2.8 H (0.2-1.3) mg/dL Direct Bilirubin (0.0-0.4) mg/dL GGT (8-78) U/L AST 138 H (17-59) U/L ALT 128 H (7-56) U/L Alkaline Phosphatase 145 H (38-126) U/L Ammonia (9-33) umol/L Lactate Dehydrogenase Total Creatine Kinase (35-230) U/L Troponin I < 0.01 ng/mL NT-Pro-B Natriuret Pep (0-450) pg/mL Total Protein 6.8 (5.8-8.3) g/dL Albumin 3.3 (3.0-4.8) g/dL Globulin 3.5 gm/dL Albumin/Globulin Ratio 0.9 L (1.1-1.8) Triglycerides (35-160) mg/dL Cholesterol (130-200) mg/dL LDL Cholesterol Direct (0-129) mg/dL HDL Cholesterol (29-60) mg/dL Lipase 124 (23-300) U/L Free T4 6.60 H (0.78-2.19) ng/dL Thyroxine (T4) (5.5-11.0) ug/dL Free T3 pg/mL (2.77-5.27) pg/mL TSH 3rd Generation < 0.02 L (0.46-4.68) mIU/mL Urine Color (YELLOW) Urine Appearance (CLEAR) Urine pH (4.7-8.0) Ur Specific [place] (1.005-1.035) Urine Protein (<30 mg/dL) mg/dL Urine Glucose (UA) (NEGATIVE) mg/dL Urine Ketones (NEGATIVE) mg/dL Urine Blood (NEGATIVE) Urine Nitrate (NEGATIVE) Urine Bilirubin (NEGATIVE) Urine Urobilinogen (<1 E.U./dL) E.U./dL Ur Leukocyte Esterase (NEGATIVE) Elsa/uL Urine RBC (0-2) /hpf Urine WBC (0-6) /hpf Ur Epithelial Cells (0-5) /hpf Urine Bacteria (NEG) Urine Opiates Screen (NEGATIVE) Urine Methadone Screen (NEGATIVE) Acetaminophen (10.0-20.0) ug/ml Ur Barbiturates Screen (NEGATIVE) Ur Phencyclidine Scrn (NEGATIVE) Ur Amphetamines Screen (NEGATIVE) U Benzodiazepines Scrn (NEGATIVE) U Oth Cocaine Metabols (NEGATIVE) U Cannabinoids Screen (NEGATIVE) Alcohol, Quantitative (0-10) mg/dL Hepatitis A IgM Ab (NEGATIVE) Hep Bs Antigen (NEGATIVE) Hep B Core IgM Ab (NEGATIVE) Hepatitis C Antibody (NEGATIVE) HIV 1&2 Antibody Screen (NEGATIVE) 04/03/18 Range/Units 18:46 WBC (4.5-11.0) 10^3/uL RBC (3.5-6.1) 10^6/uL Hgb (14.0-18.0) g/dL Hct (42.0-52.0) % MCV (80.0-105.0) fl MCH (25.0-35.0) pg MCHC (31.0-37.0) g/dl RDW (11.5-14.5) % Plt Count (120.0-450.0) 10^3/uL MPV (7.0-11.0) fl Gran % (50.0-68.0) % Lymph % (Auto) (22.0-35.0) % [place] % (Auto) (1.0-6.0) % Eos % (Auto) (1.5-5.0) % Baso % (Auto) (0.0-3.0) % Gran # (1.4-6.5) Lymph # (Auto) (1.2-3.4) [place] # (Auto) (0.1-0.6) Eos # (Auto) (0.0-0.7) Baso # (Auto) (0.0-2.0) K/mm3 Differential Comment ESR (0.0-15.0) mm/hr Retic Count (0.5-1.5) % Haptoglobin (30.0-200.0) mg/dL PT 20.1 H (9.4-12.5) SECONDS INR 1.74 APTT 35.0 (25.1-36.5) Seconds D-Dimer, Quantitative 366 H (0-243) ng/mlDDU Sodium (132-148) mmol/L Potassium (3.6-5.0) mmol/L Chloride (98-107) mmol/L Carbon Dioxide (21-33) mmol/L Anion Gap (10-20) BUN (7-21) mg/dL Creatinine (0.8-1.5) mg/dl Est GFR ( Amer) Est GFR (Non-Af Amer) POC Glucose (mg/dL) (65-110) mg/dL Random Glucose (70-110) mg/dL Hemoglobin A1c (4.2-6.5) % Calcium (8.4-10.5) mg/dL Phosphorus (2.5-4.5) mg/dL Magnesium (1.7-2.2) mg/dL Iron (45-180) ug/dL TIBC (261-462) ug/dL % Saturation (20-55) % Transferrin (206-381) mg/dL Total Bilirubin (0.2-1.3) mg/dL Direct Bilirubin (0.0-0.4) mg/dL GGT (8-78) U/L AST (17-59) U/L ALT (7-56) U/L Alkaline Phosphatase (38-126) U/L Ammonia (9-33) umol/L Lactate Dehydrogenase Total Creatine Kinase (35-230) U/L Troponin I ng/mL NT-Pro-B Natriuret Pep (0-450) pg/mL Total Protein (5.8-8.3) g/dL Albumin (3.0-4.8) g/dL Globulin gm/dL Albumin/Globulin Ratio (1.1-1.8) Triglycerides (35-160) mg/dL Cholesterol (130-200) mg/dL LDL Cholesterol Direct (0-129) mg/dL HDL Cholesterol (29-60) mg/dL Lipase (23-300) U/L Free T4 (0.78-2.19) ng/dL Thyroxine (T4) (5.5-11.0) ug/dL Free T3 pg/mL (2.77-5.27) pg/mL TSH 3rd Generation (0.46-4.68) mIU/mL Urine Color (YELLOW) Urine Appearance (CLEAR) Urine pH (4.7-8.0) Ur Specific [place] (1.005-1.035) Urine Protein (<30 mg/dL) mg/dL Urine Glucose (UA) (NEGATIVE) mg/dL Urine Ketones (NEGATIVE) mg/dL Urine Blood (NEGATIVE) Urine Nitrate (NEGATIVE) Urine Bilirubin (NEGATIVE) Urine Urobilinogen (<1 E.U./dL) E.U./dL Ur Leukocyte Esterase (NEGATIVE) Elsa/uL Urine RBC (0-2) /hpf Urine WBC (0-6) /hpf Ur Epithelial Cells (0-5) /hpf Urine Bacteria (NEG) Urine Opiates Screen (NEGATIVE) Urine Methadone Screen (NEGATIVE) Acetaminophen (10.0-20.0) ug/ml Ur Barbiturates Screen (NEGATIVE) Ur Phencyclidine Scrn (NEGATIVE) Ur Amphetamines Screen (NEGATIVE) U Benzodiazepines Scrn (NEGATIVE) U Oth Cocaine Metabols (NEGATIVE) U Cannabinoids Screen (NEGATIVE) Alcohol, Quantitative (0-10) mg/dL Hepatitis A IgM Ab (NEGATIVE) Hep Bs Antigen (NEGATIVE) Hep B Core IgM Ab (NEGATIVE) Hepatitis C Antibody (NEGATIVE) HIV 1&2 Antibody Screen (NEGATIVE) Laboratory Results - last 24 hr 04/03/18 04/03/18 04/03/18 18:46 18:46 18:46 WBC 7.0 RBC 4.52 Hgb 11.6 L Hct 34.7 L MCV 76.8 L MCH 25.7 MCHC 33.4 RDW 13.3 Plt Count 164 MPV 12.1 H Gran % 58.5 Lymph % (Auto) 28.9 [place] % (Auto) 12.1 H Eos % (Auto) 0.4 L Baso % (Auto) 0.1 Gran # 4.06 Lymph # (Auto) 2.0 [place] # (Auto) 0.8 H Eos # (Auto) 0.0 Baso # (Auto) 0.01 Differential Comment ESR Retic Count Haptoglobin PT 20.1 H INR 1.74 APTT 35.0 D-Dimer, Quantitative 366 H Sodium 133 Potassium 4.3 Chloride 101 Carbon Dioxide 24 Anion Gap 12 BUN 12 Creatinine 0.6 L Est GFR ( Amer) > 60 Est GFR (Non-Af Amer) > 60 POC Glucose (mg/dL) Random Glucose 122 H Hemoglobin A1c Calcium 8.6 Phosphorus Magnesium 1.6 L Iron TIBC % Saturation Transferrin Total Bilirubin 2.8 H Direct Bilirubin GGT AST 138 H ALT 128 H Alkaline Phosphatase 145 H Ammonia Lactate Dehydrogenase Total Creatine Kinase Troponin I < 0.01 NT-Pro-B Natriuret Pep Total Protein 6.8 Albumin 3.3 Globulin 3.5 Albumin/Globulin Ratio 0.9 L Triglycerides Cholesterol LDL Cholesterol Direct HDL Cholesterol Lipase 124 Free T4 Thyroxine (T4) Free T3 pg/mL TSH 3rd Generation Urine Color Urine Appearance Urine pH Ur Specific [place] Urine Protein Urine Glucose (UA) Urine Ketones Urine Blood Urine Nitrate Urine Bilirubin Urine Urobilinogen Ur Leukocyte Esterase Urine RBC Urine WBC Ur Epithelial Cells Urine Bacteria Urine Opiates Screen Urine Methadone Screen Acetaminophen Ur Barbiturates Screen Ur Phencyclidine Scrn Ur Amphetamines Screen U Benzodiazepines Scrn U Oth Cocaine Metabols U Cannabinoids Screen Alcohol, Quantitative Hepatitis A IgM Ab Hep Bs Antigen Hep B Core IgM Ab Hepatitis C Antibody HIV 1&2 Antibody Screen 04/03/18 04/03/18 04/03/18 18:46 18:46 18:46 WBC RBC Hgb Hct MCV MCH MCHC RDW Plt Count MPV Gran % Lymph % (Auto) [place] % (Auto) Eos % (Auto) Baso % (Auto) Gran # Lymph # (Auto) [place] # (Auto) Eos # (Auto) Baso # (Auto) Differential Comment ESR Retic Count 1.56 H Haptoglobin PT INR APTT D-Dimer, Quantitative Sodium Potassium Chloride Carbon Dioxide Anion Gap BUN Creatinine Est GFR ( Amer) Est GFR (Non-Af Amer) POC Glucose (mg/dL) Random Glucose Hemoglobin A1c Calcium Phosphorus Magnesium Iron TIBC % Saturation Transferrin Total Bilirubin Direct Bilirubin GGT AST ALT Alkaline Phosphatase Ammonia Lactate Dehydrogenase Total Creatine Kinase Troponin I NT-Pro-B Natriuret Pep 4780 H Total Protein Albumin Globulin Albumin/Globulin Ratio Triglycerides Cholesterol LDL Cholesterol Direct HDL Cholesterol Lipase Free T4 6.60 H Thyroxine (T4) Free T3 pg/mL > 22.80 H TSH 3rd Generation < 0.02 L Urine Color Urine Appearance Urine pH Ur Specific [place] Urine Protein Urine Glucose (UA) Urine Ketones Urine Blood Urine Nitrate Urine Bilirubin Urine Urobilinogen Ur Leukocyte Esterase Urine RBC Urine WBC Ur Epithelial Cells Urine Bacteria Urine Opiates Screen Urine Methadone Screen Acetaminophen Ur Barbiturates Screen Ur Phencyclidine Scrn Ur Amphetamines Screen U Benzodiazepines Scrn U Oth Cocaine Metabols U Cannabinoids Screen Alcohol, Quantitative Hepatitis A IgM Ab Hep Bs Antigen Hep B Core IgM Ab Hepatitis C Antibody HIV 1&2 Antibody Screen 04/03/18 04/03/18 04/03/18 18:46 20:33 22:02 WBC RBC Hgb Hct MCV MCH MCHC RDW Plt Count MPV Gran % Lymph % (Auto) [place] % (Auto) Eos % (Auto) Baso % (Auto) Gran # Lymph # (Auto) [place] # (Auto) Eos # (Auto) Baso # (Auto) Differential Comment See pathology review ESR Retic Count Haptoglobin PT INR APTT D-Dimer, Quantitative Sodium Potassium Chloride Carbon Dioxide Anion Gap BUN Creatinine Est GFR ( Amer) Est GFR (Non-Af Amer) POC Glucose (mg/dL) 102 Random Glucose Hemoglobin A1c Calcium Phosphorus Magnesium Iron 34 L TIBC 397 % Saturation 8 L Transferrin Total Bilirubin Direct Bilirubin GGT AST ALT Alkaline Phosphatase Ammonia Lactate Dehydrogenase Total Creatine Kinase Troponin I NT-Pro-B Natriuret Pep Total Protein Albumin Globulin Albumin/Globulin Ratio Triglycerides Cholesterol LDL Cholesterol Direct HDL Cholesterol Lipase Free T4 Thyroxine (T4) Free T3 pg/mL TSH 3rd Generation Urine Color Urine Appearance Urine pH Ur Specific [place] Urine Protein Urine Glucose (UA) Urine Ketones Urine Blood Urine Nitrate Urine Bilirubin Urine Urobilinogen Ur Leukocyte Esterase Urine RBC Urine WBC Ur Epithelial Cells Urine Bacteria Urine Opiates Screen Urine Methadone Screen Acetaminophen Ur Barbiturates Screen Ur Phencyclidine Scrn Ur Amphetamines Screen U Benzodiazepines Scrn U Oth Cocaine Metabols U Cannabinoids Screen Alcohol, Quantitative Hepatitis A IgM Ab Hep Bs Antigen Hep B Core IgM Ab Hepatitis C Antibody HIV 1&2 Antibody Screen 04/03/18 04/03/18 04/03/18 22:02 22:24 22:24 WBC RBC Hgb Hct MCV MCH MCHC RDW Plt Count MPV Gran % Lymph % (Auto) [place] % (Auto) Eos % (Auto) Baso % (Auto) Gran # Lymph # (Auto) [place] # (Auto) Eos # (Auto) Baso # (Auto) Differential Comment ESR Retic Count Haptoglobin PT INR APTT D-Dimer, Quantitative Sodium Potassium Chloride Carbon Dioxide Anion Gap BUN Creatinine Est GFR ( Amer) Est GFR (Non-Af Amer) POC Glucose (mg/dL) Random Glucose Hemoglobin A1c Calcium Phosphorus Magnesium Iron TIBC % Saturation Transferrin 312.10 Total Bilirubin Direct Bilirubin GGT AST ALT Alkaline Phosphatase Ammonia < 9 L Lactate Dehydrogenase Total Creatine Kinase Troponin I NT-Pro-B Natriuret Pep Total Protein Albumin Globulin Albumin/Globulin Ratio Triglycerides Cholesterol LDL Cholesterol Direct HDL Cholesterol Lipase Free T4 Thyroxine (T4) Free T3 pg/mL TSH 3rd Generation Urine Color Urine Appearance Urine pH Ur Specific [place] Urine Protein Urine Glucose (UA) Urine Ketones Urine Blood Urine Nitrate Urine Bilirubin Urine Urobilinogen Ur Leukocyte Esterase Urine RBC Urine WBC Ur Epithelial Cells Urine Bacteria Urine Opiates Screen Urine Methadone Screen Acetaminophen Ur Barbiturates Screen Ur Phencyclidine Scrn Ur Amphetamines Screen U Benzodiazepines Scrn U Oth Cocaine Metabols U Cannabinoids Screen Alcohol, Quantitative < 10 Hepatitis A IgM Ab Hep Bs Antigen Hep B Core IgM Ab Hepatitis C Antibody HIV 1&2 Antibody Screen 04/03/18 04/03/18 04/04/18 22:24 22:24 01:35 WBC RBC Hgb Hct MCV MCH MCHC RDW Plt Count MPV Gran % Lymph % (Auto) [place] % (Auto) Eos % (Auto) Baso % (Auto) Gran # Lymph # (Auto) [place] # (Auto) Eos # (Auto) Baso # (Auto) Differential Comment ESR Retic Count Haptoglobin PT INR APTT D-Dimer, Quantitative Sodium Potassium Chloride Carbon Dioxide Anion Gap BUN Creatinine Est GFR ( Amer) Est GFR (Non-Af Amer) POC Glucose (mg/dL) Random Glucose Hemoglobin A1c Calcium Phosphorus Magnesium Iron TIBC % Saturation Transferrin Total Bilirubin Direct Bilirubin GGT AST ALT Alkaline Phosphatase Ammonia Lactate Dehydrogenase Total Creatine Kinase Troponin I NT-Pro-B Natriuret Pep Total Protein Albumin Globulin Albumin/Globulin Ratio Triglycerides Cholesterol LDL Cholesterol Direct HDL Cholesterol Lipase Free T4 Thyroxine (T4) Free T3 pg/mL TSH 3rd Generation Urine Color Urine Appearance Urine pH Ur Specific [place] Urine Protein Urine Glucose (UA) Urine Ketones Urine Blood Urine Nitrate Urine Bilirubin Urine Urobilinogen Ur Leukocyte Esterase Urine RBC Urine WBC Ur Epithelial Cells Urine Bacteria Urine Opiates Screen Negative Urine Methadone Screen Negative Acetaminophen Ur Barbiturates Screen Negative Ur Phencyclidine Scrn Negative Ur Amphetamines Screen Negative U Benzodiazepines Scrn Negative U Oth Cocaine Metabols Negative U Cannabinoids Screen Positive H Alcohol, Quantitative Hepatitis A IgM Ab Negative Hep Bs Antigen Negative Hep B Core IgM Ab Negative Hepatitis C Antibody Negative HIV 1&2 Antibody Screen Negative 04/04/18 04/04/18 04/04/18 01:35 05:30 05:30 WBC 4.5 D RBC 4.71 Hgb 11.8 L Hct 36.2 L MCV 76.9 L MCH 25.1 MCHC 32.6 RDW 13.3 Plt Count 165 MPV Gran % 70.1 H Lymph % (Auto) 20.8 L [place] % (Auto) 9.1 H Eos % (Auto) 0.0 L Baso % (Auto) 0.0 Gran # 3.17 Lymph # (Auto) 0.9 L [place] # (Auto) 0.4 Eos # (Auto) 0.0 Baso # (Auto) 0.00 Differential Comment ESR 7 Retic Count Haptoglobin 50.0 PT INR APTT D-Dimer, Quantitative Sodium Potassium Chloride Carbon Dioxide Anion Gap BUN Creatinine Est GFR ( Amer) Est GFR (Non-Af Amer) POC Glucose (mg/dL) Random Glucose Hemoglobin A1c Calcium Phosphorus Magnesium Iron TIBC % Saturation Transferrin Total Bilirubin Direct Bilirubin GGT AST ALT Alkaline Phosphatase Ammonia Lactate Dehydrogenase Total Creatine Kinase Troponin I NT-Pro-B Natriuret Pep Total Protein Albumin Globulin Albumin/Globulin Ratio Triglycerides Cholesterol LDL Cholesterol Direct HDL Cholesterol Lipase Free T4 Thyroxine (T4) Free T3 pg/mL TSH 3rd Generation Urine Color Yellow Urine Appearance Clear Urine pH 6.5 Ur Specific [place] <= 1.005 Urine Protein 100 H Urine Glucose (UA) Negative Urine Ketones Negative Urine Blood Negative Urine Nitrate Negative Urine Bilirubin Small H Urine Urobilinogen 4.0 H Ur Leukocyte Esterase Negative Urine RBC 0 - 2 Urine WBC 0 - 2 Ur Epithelial Cells 0 - 2 Urine Bacteria Rare Urine Opiates Screen Urine Methadone Screen Acetaminophen Ur Barbiturates Screen Ur Phencyclidine Scrn Ur Amphetamines Screen U Benzodiazepines Scrn U Oth Cocaine Metabols U Cannabinoids Screen Alcohol, Quantitative Hepatitis A IgM Ab Hep Bs Antigen Hep B Core IgM Ab Hepatitis C Antibody HIV 1&2 Antibody Screen 04/04/18 04/04/18 04/04/18 05:30 05:30 05:30 WBC RBC Hgb Hct MCV MCH MCHC RDW Plt Count MPV Gran % Lymph % (Auto) [place] % (Auto) Eos % (Auto) Baso % (Auto) Gran # Lymph # (Auto) [place] # (Auto) Eos # (Auto) Baso # (Auto) Differential Comment ESR Retic Count Haptoglobin PT 23.7 H INR 2.03 APTT 29.3 D-Dimer, Quantitative Sodium 132 Potassium 5.7 H* D Chloride 101 Carbon Dioxide 22 Anion Gap 15 BUN 17 Creatinine 0.8 Est GFR ( Amer) > 60 Est GFR (Non-Af Amer) > 60 POC Glucose (mg/dL) Random Glucose 132 H Hemoglobin A1c Calcium 8.7 Phosphorus 5.0 H Magnesium 1.8 Iron TIBC % Saturation Transferrin Total Bilirubin 3.1 H Direct Bilirubin 1.6 H GGT 149 H AST 613 H D ALT 330 H Alkaline Phosphatase 151 H Ammonia Lactate Dehydrogenase Total Creatine Kinase Troponin I < 0.01 NT-Pro-B Natriuret Pep Total Protein 6.9 Albumin 3.4 Globulin 3.5 Albumin/Globulin Ratio 1.0 L Triglycerides 69 Cholesterol 56 L LDL Cholesterol Direct 51 HDL Cholesterol 15 L Lipase Free T4 5.91 H Thyroxine (T4) 20.2 H Free T3 pg/mL TSH 3rd Generation < 0.02 L Urine Color Urine Appearance Urine pH Ur Specific [place] Urine Protein Urine Glucose (UA) Urine Ketones Urine Blood Urine Nitrate Urine Bilirubin Urine Urobilinogen Ur Leukocyte Esterase Urine RBC Urine WBC Ur Epithelial Cells Urine Bacteria Urine Opiates Screen Urine Methadone Screen Acetaminophen Ur Barbiturates Screen Ur Phencyclidine Scrn Ur Amphetamines Screen U Benzodiazepines Scrn U Oth Cocaine Metabols U Cannabinoids Screen Alcohol, Quantitative Hepatitis A IgM Ab Hep Bs Antigen Hep B Core IgM Ab Hepatitis C Antibody HIV 1&2 Antibody Screen 04/04/18 04/04/18 04/04/18 05:30 05:30 06:00 WBC RBC Hgb Hct MCV MCH MCHC RDW Plt Count MPV Gran % Lymph % (Auto) [place] % (Auto) Eos % (Auto) Baso % (Auto) Gran # Lymph # (Auto) [place] # (Auto) Eos # (Auto) Baso # (Auto) Differential Comment ESR Retic Count Haptoglobin PT INR APTT D-Dimer, Quantitative Sodium Potassium Chloride Carbon Dioxide Anion Gap BUN Creatinine Est GFR ( Amer) Est GFR (Non-Af Amer) POC Glucose (mg/dL) Random Glucose Hemoglobin A1c 5.7 Calcium Phosphorus Magnesium Iron TIBC % Saturation Transferrin Total Bilirubin Direct Bilirubin GGT AST ALT Alkaline Phosphatase Ammonia Lactate Dehydrogenase TNP Total Creatine Kinase 55 Troponin I TNP NT-Pro-B Natriuret Pep Total Protein Albumin Globulin Albumin/Globulin Ratio Triglycerides Cholesterol LDL Cholesterol Direct HDL Cholesterol Lipase Free T4 Thyroxine (T4) Free T3 pg/mL TSH 3rd Generation Urine Color Urine Appearance Urine pH Ur Specific [place] Urine Protein Urine Glucose (UA) Urine Ketones Urine Blood Urine Nitrate Urine Bilirubin Urine Urobilinogen Ur Leukocyte Esterase Urine RBC Urine WBC Ur Epithelial Cells Urine Bacteria Urine Opiates Screen Urine Methadone Screen Acetaminophen < 10.0 L Ur Barbiturates Screen Ur Phencyclidine Scrn Ur Amphetamines Screen U Benzodiazepines Scrn U Oth Cocaine Metabols U Cannabinoids Screen Alcohol, Quantitative Hepatitis A IgM Ab Hep Bs Antigen Hep B Core IgM Ab Hepatitis C Antibody HIV 1&2 Antibody Screen 04/04/18 06:00 WBC RBC Hgb Hct MCV MCH MCHC RDW Plt Count MPV Gran % Lymph % (Auto) [place] % (Auto) Eos % (Auto) Baso % (Auto) Gran # Lymph # (Auto) [place] # (Auto) Eos # (Auto) Baso # (Auto) Differential Comment ESR Retic Count Haptoglobin PT INR APTT D-Dimer, Quantitative Sodium Potassium Chloride Carbon Dioxide Anion Gap BUN Creatinine Est GFR ( Amer) Est GFR (Non-Af Amer) POC Glucose (mg/dL) Random Glucose Hemoglobin A1c Calcium Phosphorus Magnesium Iron TIBC % Saturation Transferrin Total Bilirubin Direct Bilirubin GGT AST ALT Alkaline Phosphatase Ammonia Lactate Dehydrogenase 2632 H Total Creatine Kinase Troponin I NT-Pro-B Natriuret Pep Total Protein Albumin Globulin Albumin/Globulin Ratio Triglycerides Cholesterol LDL Cholesterol Direct HDL Cholesterol Lipase Free T4 Thyroxine (T4) Free T3 pg/mL TSH 3rd Generation Urine Color Urine Appearance Urine pH Ur Specific [place] Urine Protein Urine Glucose (UA) Urine Ketones Urine Blood Urine Nitrate Urine Bilirubin Urine Urobilinogen Ur Leukocyte Esterase Urine RBC Urine WBC Ur Epithelial Cells Urine Bacteria Urine Opiates Screen Urine Methadone Screen Acetaminophen Ur Barbiturates Screen Ur Phencyclidine Scrn Ur Amphetamines Screen U Benzodiazepines Scrn U Oth Cocaine Metabols U Cannabinoids Screen Alcohol, Quantitative Hepatitis A IgM Ab Hep Bs Antigen Hep B Core IgM Ab Hepatitis C Antibody HIV 1&2 Antibody Screen EKG/Cardiology Studies: Cardiology / EKG Studies 04/03/18 18:23 EKG [ELECTROCARDIOGRAM] Stat Comment: Reason For Exam: medical clearance 04/03/18 18:55 EKG [ELECTROCARDIOGRAM] Stat Comment: Reason For Exam: SIDE PAIN 04/04/18 07:00 EKG [ELECTROCARDIOGRAM] Routine Comment: Reason For Exam: prior AFib Critical Care Progress Note - Nutrition Nutrition: Nutrition Category Date Time Status Heart Healthy Diet [DIET] Diets 04/03/18 Breakfast Active Assessment/Plan - Assessment and Plan (Free Text) Assessment: 27 yo M with PMH of unspecified thyroid disorder is admitted to ICU for management of thyrotoxicosis and possible thyroid storm. Plan: Neuro: AAOx3, no FND, moving extremities past midline Monitor neuro status Reorient patient as necessary Cardio: AFib on admission likely 2/2 thyrotoxicosis Cardizem given in ED with resolution of AFib but remains tachycardic Proproanolol 2 mg IVP given in ED Start propranolol 10 mg PO q6h CTA was done to r/o PE, CT chest showed: 1. No evidence for pulmonary embolism. 2. Large bilateral pleural effusions, larger on the right side. 3. Reflux of contrast in the IVC and hepatics consistent with right heart failure. 4. Bilateral hilar adenopathy, which is non-specific and possibly reactive. 5. Pulmonary arterial hypertension. 6. Diffuse pulmonary edema. 7. Severe cardiomegaly with pulmonary venous congestive changes. BNP elevated [place] [address] findings, will consult cardiology for further recs May represent changes consistent with cardiomyopathy F/u UDS results Monitor HR closely in MICU Pulm: No signs of respiratory distress. CTA B/L Possible b/l pleural effusions noted on abdominal US May be 2/2 bronchitis No obvious infiltrates identified on CXR Consider xopenex if SOB is worsening Patient is stating well on room air Maintain O2 saturation>95% O2 NC PRN Endocrine: Badillo-Wartofsky Point Scale score of 65, high likelihood of thyroid storm Methimazole 20 given in ED, continue methimazole 20 q6h Propranolol given in ED, continue proproanolol 10 mg PO q6h Repeat thyroid studies in AM, additional thyroid studies per Dr. Cunningham Start solu-cortef 100 mg q8h Case discussed with Dr. Cunningham, endocrinology, who agrees with current plan F/u further line servicer recs GI: Transaminitis noted Tbili elevated at 2.8 May be 2/2 thyrotoxicosis vs alcohol abuse vs acute hepatitis Ammonia negative Abdominal US with signs of ascites, gallbladder wall thickening Will order liver doppler US to r/o portal vein thrombosis GI consulted, recs appreciated /Nephro: BUN/Cr stable at 12/0.6 F/u UA, UCx results Monitor UOP closely Replete electrolytes as needed Maintain euvolemia Heme/Onc: Microcytic anemia noted but H/H stable at 11.6/34.7 No overt signs of HD compromise Will get iron studies, reticulocyte count, peripheral smear Monitor closely for s/sx of HD compromise ID: Afebrile, no leukocytosis Follow up BCx, UCx, Procalcitonin, Lactate Monitor for signs and symptoms of infection DVT/GI PPX: Lovenox/SCD, protonix Full Code HHD Monitor in MICU Case and plan reviewed and discussed with my attending
--- NOTE | 2018-04-04 13:40 | CARD ---
APPROVED REPORT Date of service: 04/03/2018 EKG Measurement Heart [id number] <Conclusion> Atrial fibrillation ST & T wave abnormality, consider lateral ischemia or digitalis effect Abnormal ECG
--- NOTE | 2018-04-04 13:41 | CARD ---
APPROVED REPORT Date of service: 04/03/2018 EKG Measurement Heart [id number] <Conclusion> Atrial fibrillation with rapid ventricular response T wave abnormality, consider lateral ischemia or digitalis effect Abnormal ECG
[2018-04-04 14:05] LABS: INR 2.8; PROTHROMBIN TIME 32.9 SECONDS (9.4-12.5)
[2018-04-04 14:19] LABS: ALBUMIN 3.2 g/dL (3.0-4.8); ALT/SGPT 443 U/L (7-56); BILIRUBIN,DIRECT 1.7 mg/dL (0.0-0.4); BLOOD UREA NITROGEN 21 mg/dL (7-21); CALCIUM 8.4 mg/dL (8.4-10.5); GAMMA GLUTAMYL TRANSPEPTIDASE 122 U/L (8-78); GFR NON-AFRICAN AMERICAN > 60
[2018-04-04 14:20] LABS: AST/SGOT 851 U/L (17-59)
--- NOTE | 2018-04-04 14:35 | US ---
PROCEDURE: Portal vein duplex ultrasound. CLINICAL HISTORY: Cirrhosis. Deteriorating liver function. Evaluate for portal vein thrombosis. PHYSICIAN(S): Jose East M.D. FINDINGS: The hepatic parenchyma is heterogeneous and echogenic consistent with cirrhosis. The extrahepatic portal vein is patent with hepatopetal flow. The hepatic artery is prominent. The central patent veins are patent. There is a small amount of ascites in the upper abdomen. IMPRESSION: 1. Patent portal vein with hepatopetal flow.
--- NOTE | 2018-04-04 15:17 | CON ---
DATE: 04/04/2018 REASON FOR CONSULTATION: Rapid atrial fibrillation. HISTORY OF PRESENT ILLNESS: The patient is a 27 years old male, who is a smoker, EtOH abuser, presented because of cough and shortness of breath, and right upper quadrant pain. The patient stated that he had issue with the thyroid gland before and receives medications, but does not recall the name of his medication and currently he is on no meds. The patient lightheaded yesterday as he was given medication to slow his heart rate according to the patient. The patient does not recall any history of irregular heart beat in the past. SOCIAL HISTORY: Smoker, drinker, currently unemployed. 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 MEDICATIONS: Home medications include just albuterol. CURRENT HOSPITAL MEDICATIONS: Albuterol inhaler every 4 hours, Inderal 10 mg twice a day, Lovenox 40 mg subcutaneously once a day, Questran 4 mg p.o. q.i.d, Solu-Cortef 100 mg intravenously every 8 hours, Tapazole 20 mg every 6 hours, Zofran 4 mg intravenously every 4 hours. PHYSICAL EXAMINATION GENERAL: The patient is a young middle-aged male, who does not appear to be in acute distress. VITAL SIGNS: Blood pressure 124/62, heart rate 109, temperature 98.7 and respirations 20. HEENT: Normocephalic. NECK: Mild goiter. CHEST: Clear. HEART: S1 and S2, regular. ABDOMEN: Soft. EXTREMITIES: No edema. LABORATORY STUDIES: Hemoglobin and hematocrit 11.8 and 36.2, white count and platelet count are within normal limits. Urine drug screen is positive for cannabinoids. Alcohol less than 10. Today's SMA-7, sodium 132, potassium 5.7, chloride 101, CO2 of 27, glucose 132, BUN 17, and creatinine 0.8. Total bilirubin 3.1, direct bilirubin 1.6. AST and ALT are 615 and 330 respectively and alkaline phosphatase 151, all liver enzymes are elevated. TSH level is below 0.02. T4 is elevated at 20.2 with free T4 elevated 5.91. Chest x-ray revealed cardiomegaly. No infiltrate, however, prominent bronchovascular markings. Thyroid ultrasound, mild thyromegaly including with hyperemic blood flow throughout. Chest CT with PE protocol unremarkable. CT of pulmonary angiogram, large bilateral pleural effusions. EKG on admission revealed atrial fibrillation at the rate of 149 with non-specific Q wave changes. Abdomen ultrasound, no cholelithiasis. Gallbladder wall appears thickened. Ascites may indicate gallbladder hydrops rather than cholecystitis. INR 2.03. ASSESSMENT: 1. Atrial fibrillation, it is not clear if this is a new onset or has existed before. The patient had no EKG in the recent few months. The patient had no EKGs in the [employer] database for this year. 2. Alcoholic liver disease with possible gallbladder hydrops. 3. Coagulopathy. 4. Hyperkalemia. 5. Hyperthyroidism and diffuse goitre. RECOMMENDATIONS: Continue current Inderal 10 mg every 6 hours, subcutaneous Lovenox 40 mg daily, Solu-Cortef 100 mg intravenously every 8 hours, Tapazole 20 mg every 6 hours. I obtained an echocardiogram, follow up BNP this afternoon after the patient received Kayexalate 30 g orally. Sanjeev Parker MD
--- NOTE | 2018-04-04 15:56 | CARD ---
APPROVED REPORT Date of service: 04/04/2018 EXAM: Two-dimensional and M-mode echocardiogram with Doppler and color Doppler. INDICATION ELEVATED BNP 2D DIMENSIONS Left Atrium (2D)5.2 (1.6-4.0cm)IVSd1.1 (0.7-1.1cm) LVDd5.2 (3.9-5.9cm)PWd1.2 (0.7-1.1cm) LVDs4.7 (2.5-4.0cm)LVEF (%)20.0 (>50%) M-Mode DIMENSIONS Aortic Root2.70 (2.2-3.7cm)Aortic Cusp Exc.2.00 (1.5-2.0cm) Aortic Valve AoV Peak Tutezpsf50.6cm/Jl Peak GR.4mmHg Mitral Valve E/A ratio0.0 TDI E/Lateral E'0.0E/Medial E'0.0 Tricuspid Valve TR Peak [id number] [id number] Peak Gr.21mmHg [id number] LEFT VENTRICLE The left ventricle is normal size. There is normal left ventricular wall thickness. The systolic function is severely impaired. There is global hypokinesis of the left ventricle. No left ventricle thrombus noted on this study. RIGHT VENTRICLE The right ventricle is moderately dilated. There is normal right ventricular wall thickness. RSystolic function is severely reduced. ATRIA The left atrium is moderately dilated. The right atrium is moderately dilated. AORTIC VALVE The aortic valve is normal in structure. There is trace aortic regurgitation. There is no aortic valvular stenosis. MITRAL VALVE The mitral valve is mildly thickened. Mitral regurgitation is moderate to severe. TRICUSPID VALVE There is moderate to severe tricuspid regurgitation. PULMONIC VALVE There is trace pulmonic valvular regurgitation. GREAT VESSELS The aortic root is normal in size. The IVC is dilated. <Conclusion> Sever Biventricular Failure Moderate to sever MR and TR
[2018-04-04 16:14] VITALS: TEMP 97.4
[2018-04-04 16:59] LABS: FERRITIN 64.5 ng/mL
[2018-04-04 17:54] LABS: ALBUMIN 3.4 g/dL (3.0-4.8); ALT/SGPT 591 U/L (7-56); AST/SGOT 1215 U/L (17-59); BILIRUBIN,DIRECT 1.4 mg/dL (0.0-0.4); BLOOD UREA NITROGEN 22 mg/dL (7-21); CALCIUM 8.3 mg/dL (8.4-10.5); GAMMA GLUTAMYL TRANSPEPTIDASE 128 U/L (8-78); GFR NON-AFRICAN AMERICAN > 60
--- NOTE | 2018-04-04 19:26 | CARD ---
APPROVED REPORT Date of service: 04/04/2018 EKG Measurement Heart [id number] <Conclusion> Atrial fibrillation Nonspecific T wave abnormality, probably digitalis effect Prolonged QT Abnormal ECG
--- NOTE | 2018-04-04 19:32 | CP.PCM.DIS ---
<GracielaYobanyCourtney - Last Filed: 04/04/18 20:02> Provider - Provider Date of Admission: 04/03/18 20:43 Attending physician: Jessica Persaud DO Primary care physician: Bonilla Salcedo MD Consults: Endocrinology: Dr Cunningham GI: Dr Saeed Cardio: Dr Parker Time Spent in preparation of Discharge (in minutes): 40 Hospital Course - Lab Results Lab Results: Most Recent Lab Values WBC 4.5 10^3/uL (4.5-11.0) D 04/04/18 05:30 RBC 4.71 10^6/uL (3.5-6.1) 04/04/18 05:30 Hgb 11.8 g/dL (14.0-18.0) L 04/04/18 05:30 Hct 36.2 % (42.0-52.0) L 04/04/18 05:30 MCV 76.9 fl (80.0-105.0) L 04/04/18 05:30 MCH 25.1 pg (25.0-35.0) 04/04/18 05:30 MCHC 32.6 g/dl (31.0-37.0) 04/04/18 05:30 RDW 13.3 % (11.5-14.5) 04/04/18 05:30 Plt Count 165 10^3/uL (120.0-450.0) 04/04/18 05:30 MPV 12.1 fl (7.0-11.0) H 04/03/18 18:46 Gran % 70.1 % (50.0-68.0) H 04/04/18 05:30 Lymph % (Auto) 20.8 % (22.0-35.0) L 04/04/18 05:30 [place] % (Auto) 9.1 % (1.0-6.0) H 04/04/18 05:30 Eos % (Auto) 0.0 % (1.5-5.0) L 04/04/18 05:30 Baso % (Auto) 0.0 % (0.0-3.0) 04/04/18 05:30 Gran # 3.17 (1.4-6.5) 04/04/18 05:30 Lymph # (Auto) 0.9 (1.2-3.4) L 04/04/18 05:30 [place] # (Auto) 0.4 (0.1-0.6) 04/04/18 05:30 Eos # (Auto) 0.0 (0.0-0.7) 04/04/18 05:30 Baso # (Auto) 0.00 K/mm3 (0.0-2.0) 04/04/18 05:30 Differential Comment See pathology review 04/03/18 18:46 ESR 7 mm/hr (0.0-15.0) 04/04/18 05:30 Retic Count 1.56 % (0.5-1.5) H 04/03/18 18:46 Haptoglobin 50.0 mg/dL (30.0-200.0) 04/04/18 05:30 PT 32.9 SECONDS (9.4-12.5) H 04/04/18 13:52 INR 2.80 04/04/18 13:52 APTT 29.3 Seconds (25.1-36.5) 04/04/18 05:30 D-Dimer, Quantitative 366 ng/mlDDU (0-243) H 04/03/18 18:46 Sodium 131 mmol/L (132-148) L 04/04/18 17:30 Potassium 4.6 mmol/L (3.6-5.0) 04/04/18 17:30 Chloride 95 mmol/L (98-107) L 04/04/18 17:30 Carbon Dioxide 23 mmol/L (21-33) 04/04/18 17:30 Anion Gap 18 (10-20) 04/04/18 17:30 BUN 22 mg/dL (7-21) H 04/04/18 17:30 Creatinine 0.8 mg/dl (0.8-1.5) 04/04/18 17:30 Est GFR ( Amer) > 60 04/04/18 17:30 Est GFR (Non-Af Amer) > 60 04/04/18 17:30 POC Glucose (mg/dL) 102 mg/dL (65-110) 04/03/18 20:33 Random Glucose 208 mg/dL (70-110) H 04/04/18 17:30 Hemoglobin A1c 5.7 % (4.2-6.5) 04/04/18 05:30 Calcium 8.3 mg/dL (8.4-10.5) L 04/04/18 17:30 Phosphorus 5.0 mg/dL (2.5-4.5) H 04/04/18 05:30 Magnesium 1.8 mg/dL (1.7-2.2) 04/04/18 05:30 Iron 34 ug/dL (45-180) L 04/03/18 22:02 TIBC 397 ug/dL (261-462) 04/03/18 22:02 % Saturation 8 % (20-55) L 04/03/18 22:02 Transferrin 312.10 mg/dL (206-381) 04/03/18 22:02 Ferritin 64.5 ng/mL 04/04/18 05:30 Total Bilirubin 2.4 mg/dL (0.2-1.3) H 04/04/18 17:30 Direct Bilirubin 1.4 mg/dL (0.0-0.4) H 04/04/18 17:30 GGT 128 U/L (8-78) H 04/04/18 17:30 AST 1215 U/L (17-59) H 04/04/18 17:30 ALT 591 U/L (7-56) H 04/04/18 17:30 Alkaline Phosphatase 75 U/L (38-126) 04/04/18 17:30 Ammonia < 9 umol/L (9-33) L 04/04/18 17:30 Lactate Dehydrogenase 2632 U/L (333-699) H 04/04/18 06:00 Total Creatine Kinase 55 U/L (35-230) 04/04/18 05:30 Troponin I TNP 04/04/18 05:30 NT-Pro-B Natriuret Pep 4780 pg/mL (0-450) H 04/03/18 18:46 Total Protein 6.8 g/dL (5.8-8.3) 04/04/18 17:30 Albumin 3.4 g/dL (3.0-4.8) 04/04/18 17:30 Globulin 3.4 gm/dL 04/04/18 17:30 Albumin/Globulin Ratio 1.0 (1.1-1.8) L 04/04/18 17:30 Triglycerides 69 mg/dL (35-160) 04/04/18 05:30 Cholesterol 56 mg/dL (130-200) L 04/04/18 05:30 LDL Cholesterol Direct 51 mg/dL (0-129) 04/04/18 05:30 HDL Cholesterol 15 mg/dL (29-60) L 04/04/18 05:30 Lipase 124 U/L (23-300) 04/03/18 18:46 Free T4 5.91 ng/dL (0.78-2.19) H 04/04/18 05:30 Thyroxine (T4) 20.2 ug/dL (5.5-11.0) H 04/04/18 05:30 Free T3 pg/mL 13.30 pg/mL (2.77-5.27) H 04/04/18 05:30 TSH 3rd Generation < 0.02 mIU/mL (0.46-4.68) L 04/04/18 05:30 Cortisol AM Sample 61.9 ug/dL (4.46-22.7) H 04/04/18 05:30 Urine Color Yellow (YELLOW) 04/04/18 01:35 Urine Appearance Clear (CLEAR) 04/04/18 01:35 Urine pH 6.5 (4.7-8.0) 04/04/18 01:35 Ur Specific [place] <= 1.005 (1.005-1.035) 04/04/18 01:35 Urine Protein 100 mg/dL (<30 mg/dL) H 04/04/18 01:35 Urine Glucose (UA) Negative mg/dL (NEGATIVE) 04/04/18 01:35 Urine Ketones Negative mg/dL (NEGATIVE) 04/04/18 01:35 Urine Blood Negative (NEGATIVE) 04/04/18 01:35 Urine Nitrate Negative (NEGATIVE) 04/04/18 01:35 Urine Bilirubin Small (NEGATIVE) H 04/04/18 01:35 Urine Urobilinogen 4.0 E.U./dL (<1 E.U./dL) H 04/04/18 01:35 Ur Leukocyte Esterase Negative Elsa/uL (NEGATIVE) 04/04/18 01:35 Urine RBC 0 - 2 /hpf (0-2) 04/04/18 01:35 Urine WBC 0 - 2 /hpf (0-6) 04/04/18 01:35 Ur Epithelial Cells 0 - 2 /hpf (0-5) 04/04/18 01:35 Urine Bacteria Rare (NEG) 04/04/18 01:35 Urine Opiates Screen Negative (NEGATIVE) 04/04/18 01:35 Urine Methadone Screen Negative (NEGATIVE) 04/04/18 01:35 Acetaminophen < 10.0 ug/ml (10.0-20.0) L 04/04/18 06:00 Ur Barbiturates Screen Negative (NEGATIVE) 04/04/18 01:35 Ur Phencyclidine Scrn Negative (NEGATIVE) 04/04/18 01:35 Ur Amphetamines Screen Negative (NEGATIVE) 04/04/18 01:35 U Benzodiazepines Scrn Negative (NEGATIVE) 04/04/18 01:35 U Oth Cocaine Metabols Negative (NEGATIVE) 04/04/18 01:35 U Cannabinoids Screen Positive (NEGATIVE) H 04/04/18 01:35 Alcohol, Quantitative < 10 mg/dL (0-10) 04/03/18 22:24 Hepatitis A IgM Ab Negative (NEGATIVE) 04/03/18 22:24 Hep Bs Antigen Negative (NEGATIVE) 04/03/18 22:24 Hep B Core IgM Ab Negative (NEGATIVE) 04/03/18 22:24 Hepatitis C Antibody Negative (NEGATIVE) 04/03/18 22:24 HIV 1&2 Antibody Screen Negative (NEGATIVE) 04/03/18 22:24 - Hospital Course Hospital Course: PGY-[address] Persaud Mr. Ace, 27 years old male with PMH of unspecified thyroid disorder since 2013, untreated, smoker (last smoke 1 month ago), chronic marijuana user (last use 1 month ago), binge drinker (3 times a week, last drink 2 weeks ago) and family history of graves disease (mom, ) presents to ED on 04/03 for worsening R flank pain, nausea/vomiting/diarrhea, SOB, and cough which have been worsening over the past month. 1 month ago, he started to have cough with yellow sputum, which had prevented him from smoking. The cough was associated with persistent morning nausea and diarrhea (loose stool 2-3 times a day). The cough/nausea/diarrhea did not improve, so he visited the emergency room 1 week ago for the persistent cough, chest congestion, and dyspnea at night. He was diagnosed with bronchitis and upper respiratory infection, unlikely pneumonia. He was discharged with Albuterol HFA and Azithromycin [Z-Link]. Pt finsihed the antibiotics, stating that he did not use any over the counter medicine or tylenol. He started to have R flank pain 3 days ago. The pain is dull, burning, radiating to RUQ. Cough, nausea, the loose stool did not improve, and he did not eat for 1 day, so he came to the emergency room. Upon arrival in the ED, T 97.8, HR 130, 124/61, RR 18. 99RA. CBC significant for Hb 11.6, MCV 77. INR 1.74. Total bilirubin 2.8. AST 138, ALT 128, alk phos 145. BNP 4780. Trop < 0.01. D-dimer elevated at 366. TSH < 0.02, Free T4 6.6, Thyroxine (T4) 20.2. Free T3 > 22.8. UDS positive for cannabinoids. He was found to have A-fib RVR likely due to thyrotixicosis. He received methimazole, propanolol, and steroids. He was transferred to ICU. Per endocrinology consult, pt was put on solucortef, tapazole, questran, propanolol. For his A-fib, ASA 325 x 1, diltiazem 20mg IVP x 1. Cardizem gtt was started in the ED and later switched to propranolol once the thyroid panel came back. ALESSIO- VASC2 0-1 for questionable CHF vs acute heart decompensation due to thyrotoxicosis. He was put on ASA 81 daily. CTA chest had ruled out pulmonary embolism, but showed large bilateral pleural effusions. Echocardiogram while in A-fib showed EF 20%, RVSP 31mmHg, severe biventricular failure, moderate to severe mitral regurgitation and tricuspid regurgitation. His BP was briefly decreased to 89/59, but BP corrected within 30 minutes after controlling HR. Through the day, he is on propranolol PO 10mg q6. HR stays between 100s to 120s. He is breathing on room air. SaO2 in high 90s. For the Acute liver failure, likely due to thyrotoxicosis vs ischemia due to poor forward flow. MELD-Na 21 points on admission. Acetylcysteine IV was started with a loading dose of 9400mg over 1 hr. Then, he received 3130 mg of second dose over 4 hours. Currently pt is receiving the 3rd dose, total to be 6260 mg over 16 hours. Abdominal U/S showed gallbladder wall thickening at 6.5mm with ascites, no cholelithiasis. Follow up labs showed INR increases to 2.03 to 2.80. TB rises to 3.1 and now decreases to 2.4. AST rises to 851 to 1215. ALT rises to 443 to 591. GI consult recommends transfer to a tertiatry center. [facility] has accepted the patient. I have talked to pt's sister, amanda, on the phone regarding the course of the patient. Discharge Exam - Head Exam Head Exam: ATRAUMATIC, NORMAL INSPECTION, NORMOCEPHALIC - Eye Exam Eye Exam: EOMI, Normal appearance, PERRL, Scleral icterus (slight) Pupil Exam: NORMAL ACCOMODATION, PERRL - ENT Exam ENT Exam: Mucous Membranes Moist, Normal Oropharynx - Neck Exam Neck exam: Normal Inspection Additional comments: No tenderness, No thyromegaly, - Respiratory Exam Respiratory Exam: Decreased Breath Sounds (b/l lower lobes), NORMAL BREATHING PATTERN. absent: Rales, Rhonchi, Wheezes - Cardiovascular Exam Cardiovascular Exam: Irregular Rhythm, +S1, +S2 - GI/Abdominal Exam GI & Abdominal Exam: Normal Bowel Sounds, Soft, Tenderness (RUQ, upon palpation). absent: Distended, Firm, Guarding, Rebound, Rigid - Extremities Exam Extremities exam: normal capillary refill, pedal pulses present Additional comments: No calf tenderness b/l - Back Exam Back exam: absent: CVA tenderness (L), CVA tenderness (R) - Neurological Exam Neurological exam: Alert, CN II-XII Intact, Oriented x3 Additional comments: Motor and sensory grossly intact Deep tendon reflex: biceps 1, patella 1 b/l Motor 5/5 all extremities - Psychiatric Exam Psychiatric exam: Normal Affect, Normal Mood - Skin Skin Exam: Dry, Warm Discharge Plan - Follow Up Plan Condition: GUARDED Disposition: OTHER INSTITUTION Referrals: Bonilla Salcedo MD [Primary Care Provider] - <Jessica Persaud - Last Filed: 04/05/18 02:21> Provider - Provider Date of Admission: 04/03/18 20:43 Attending physician: Jessica Persaud DO Primary care physician: Bonilla Salcedo MD Hospital Course - Lab Results Lab Results: Micro Results 04/03/18 22:15 Blood Blood Culture - Preliminary NO GROWTH AFTER 24 HOURS 04/03/18 22:00 Blood Blood Culture - Preliminary NO GROWTH AFTER 24 HOURS Most Recent Lab Values WBC 4.5 10^3/uL (4.5-11.0) D 04/04/18 05:30 RBC 4.71 10^6/uL (3.5-6.1) 04/04/18 05:30 Hgb 11.8 g/dL (14.0-18.0) L 04/04/18 05:30 Hct 36.2 % (42.0-52.0) L 04/04/18 05:30 MCV 76.9 fl (80.0-105.0) L 04/04/18 05:30 MCH 25.1 pg (25.0-35.0) 04/04/18 05:30 MCHC 32.6 g/dl (31.0-37.0) 04/04/18 05:30 RDW 13.3 % (11.5-14.5) 04/04/18 05:30 Plt Count 165 10^3/uL (120.0-450.0) 04/04/18 05:30 MPV 12.1 fl (7.0-11.0) H 04/03/18 18:46 Gran % 70.1 % (50.0-68.0) H 04/04/18 05:30 Lymph % (Auto) 20.8 % (22.0-35.0) L 04/04/18 05:30 [place] % (Auto) 9.1 % (1.0-6.0) H 04/04/18 05:30 Eos % (Auto) 0.0 % (1.5-5.0) L 04/04/18 05:30 Baso % (Auto) 0.0 % (0.0-3.0) 04/04/18 05:30 Gran # 3.17 (1.4-6.5) 04/04/18 05:30 Lymph # (Auto) 0.9 (1.2-3.4) L 04/04/18 05:30 [place] # (Auto) 0.4 (0.1-0.6) 04/04/18 05:30 Eos # (Auto) 0.0 (0.0-0.7) 04/04/18 05:30 Baso # (Auto) 0.00 K/mm3 (0.0-2.0) 04/04/18 05:30 Differential Comment See pathology review 04/03/18 18:46 ESR 7 mm/hr (0.0-15.0) 04/04/18 05:30 Retic Count 1.56 % (0.5-1.5) H 04/03/18 18:46 Haptoglobin 50.0 mg/dL (30.0-200.0) 04/04/18 05:30 PT 31.2 SECONDS (9.4-12.5) H 04/04/18 21:35 INR 2.68 04/04/18 21:35 APTT 29.3 Seconds (25.1-36.5) 04/04/18 05:30 D-Dimer, Quantitative 366 ng/mlDDU (0-243) H 04/03/18 18:46 Sodium 132 mmol/L (132-148) 04/04/18 21:35 Potassium 4.1 mmol/L (3.6-5.0) 04/04/18 21:35 Chloride 95 mmol/L (98-107) L 04/04/18 21:35 Carbon Dioxide 24 mmol/L (21-33) 04/04/18 21:35 Anion Gap 17 (10-20) 04/04/18 21:35 BUN 23 mg/dL (7-21) H 04/04/18 21:35 Creatinine 0.8 mg/dl (0.8-1.5) 04/04/18 21:35 Est GFR ( Amer) > 60 04/04/18 21:35 Est GFR (Non-Af Amer) > 60 04/04/18 21:35 POC Glucose (mg/dL) 102 mg/dL (65-110) 04/03/18 20:33 Random Glucose 121 mg/dL (70-110) H 04/04/18 21:35 Hemoglobin A1c 5.7 % (4.2-6.5) 04/04/18 05:30 Calcium 8.4 mg/dL (8.4-10.5) 04/04/18 21:35 Phosphorus 5.0 mg/dL (2.5-4.5) H 04/04/18 05:30 Magnesium 1.8 mg/dL (1.7-2.2) 04/04/18 05:30 Iron 34 ug/dL (45-180) L 04/03/18 22:02 TIBC 397 ug/dL (261-462) 04/03/18 22:02 % Saturation 8 % (20-55) L 04/03/18 22:02 Transferrin 312.10 mg/dL (206-381) 04/03/18 22:02 Ferritin 64.5 ng/mL 04/04/18 05:30 Total Bilirubin 2.1 mg/dL (0.2-1.3) H 04/04/18 21:35 Direct Bilirubin 1.2 mg/dL (0.0-0.4) H 04/04/18 21:35 GGT 131 U/L (8-78) H 04/04/18 21:35 AST 1343 U/L (17-59) H 04/04/18 21:35 ALT 678 U/L (7-56) H 04/04/18 21:35 Alkaline Phosphatase 112 U/L (38-126) 04/04/18 21:35 Ammonia < 9 umol/L (9-33) L 04/04/18 17:30 Lactate Dehydrogenase 2632 U/L (333-699) H 04/04/18 06:00 Total Creatine Kinase 55 U/L (35-230) 04/04/18 05:30 Troponin I TNP 04/04/18 05:30 NT-Pro-B Natriuret Pep 4780 pg/mL (0-450) H 04/03/18 18:46 Total Protein 6.9 g/dL (5.8-8.3) 04/04/18 21:35 Albumin 3.5 g/dL (3.0-4.8) 04/04/18 21:35 Globulin 3.4 gm/dL 04/04/18 21:35 Albumin/Globulin Ratio 1.0 (1.1-1.8) L 04/04/18 21:35 Triglycerides 69 mg/dL (35-160) 04/04/18 05:30 Cholesterol 56 mg/dL (130-200) L 04/04/18 05:30 LDL Cholesterol Direct 51 mg/dL (0-129) 04/04/18 05:30 HDL Cholesterol 15 mg/dL (29-60) L 04/04/18 05:30 Lipase 124 U/L (23-300) 04/03/18 18:46 Free T4 5.91 ng/dL (0.78-2.19) H 04/04/18 05:30 Thyroxine (T4) 20.2 ug/dL (5.5-11.0) H 04/04/18 05:30 Free T3 pg/mL 13.30 pg/mL (2.77-5.27) H 04/04/18 05:30 TSH 3rd Generation < 0.02 mIU/mL (0.46-4.68) L 04/04/18 05:30 Cortisol AM Sample 61.9 ug/dL (4.46-22.7) H 04/04/18 05:30 Urine Color Yellow (YELLOW) 04/04/18 01:35 Urine Appearance Clear (CLEAR) 04/04/18 01:35 Urine pH 6.5 (4.7-8.0) 04/04/18 01:35 Ur Specific [place] <= 1.005 (1.005-1.035) 04/04/18 01:35 Urine Protein 100 mg/dL (<30 mg/dL) H 04/04/18 01:35 Urine Glucose (UA) Negative mg/dL (NEGATIVE) 04/04/18 01:35 Urine Ketones Negative mg/dL (NEGATIVE) 04/04/18 01:35 Urine Blood Negative (NEGATIVE) 04/04/18 01:35 Urine Nitrate Negative (NEGATIVE) 04/04/18 01:35 Urine Bilirubin Small (NEGATIVE) H 04/04/18 01:35 Urine Urobilinogen 4.0 E.U./dL (<1 E.U./dL) H 04/04/18 01:35 Ur Leukocyte Esterase Negative Elsa/uL (NEGATIVE) 04/04/18 01:35 Urine RBC 0 - 2 /hpf (0-2) 04/04/18 01:35 Urine WBC 0 - 2 /hpf (0-6) 04/04/18 01:35 Ur Epithelial Cells 0 - 2 /hpf (0-5) 04/04/18 01:35 Urine Bacteria Rare (NEG) 04/04/18 01:35 Urine Opiates Screen Negative (NEGATIVE) 04/04/18 01:35 Urine Methadone Screen Negative (NEGATIVE) 04/04/18 01:35 Acetaminophen < 10.0 ug/ml (10.0-20.0) L 04/04/18 06:00 Ur Barbiturates Screen Negative (NEGATIVE) 04/04/18 01:35 Ur Phencyclidine Scrn Negative (NEGATIVE) 04/04/18 01:35 Ur Amphetamines Screen Negative (NEGATIVE) 04/04/18 01:35 U Benzodiazepines Scrn Negative (NEGATIVE) 04/04/18 01:35 U Oth Cocaine Metabols Negative (NEGATIVE) 04/04/18 01:35 U Cannabinoids Screen Positive (NEGATIVE) H 04/04/18 01:35 Alcohol, Quantitative < 10 mg/dL (0-10) 04/03/18 22:24 Hepatitis A IgM Ab Negative (NEGATIVE) 04/03/18 22:24 Hep Bs Antigen Negative (NEGATIVE) 04/03/18 22:24 Hep B Core IgM Ab Negative (NEGATIVE) 04/03/18 22:24 Hepatitis C Antibody Negative (NEGATIVE) 04/03/18 22:24 HIV 1&2 Antibody Screen Negative (NEGATIVE) 04/03/18 22:24 Attending/Attestation - Attestation I have personally seen and examined this patient.: Yes I have fully participated in the care of the patient.: Yes I have reviewed all pertinent clinical information, including history, physical exam and plan: Yes Notes (Text): Patient seen and examined by me with resident throughout the day and evening on 04/04/18. Case including discharge plan discussed with resident. Agree with above with following additions/corrections. Patient is 27-year-old male with past medical history significant for recent bronchitis per patient and unspecified thyroid disorder that presented to the emergency room with worsening of right flank pain, nausea/vomiting/diarrhea, shortness of breath, and cough worsening over one month. Please see H&P for full details. Patient was admitted with possible thyroid storm, new onset atrial fibrillation, bilateral pleural effusions, and transaminitis. Cardiology was consulted. Endocrinology was consulted. GI was consulted. Free T4 was 5.91. Thyroxine was 20.2. Free T3 was 13.30. TSH was less than 0.02 to. Cortisol AM sample was 61.9. T bili on admission was 2.8. T bili on discharge was 2.1. INR on admission was 1.74. INR on discharge was 2.68. GGT on admission was 149. GGT on discharge was 131. AST on admission was 138. AST on discharge was 1343. ALT on admission was 128. ALT on discharge was 678. Hepatitis panel was negative. Alcohol level was less than 10. Acetaminophen level was less than 10. BRANDO, thyroid peroxidase, and thyroglobulin panel is pending. Thyroid ultrasound per radiologist shows mild thyromegaly is identified including the isthmus with hyperemic blood flow throughout, this potentially may reflect thyroiditis, no definable cystic or solid masses appreciated. Abdominal ultrasound per radiologist showed no ch olelithiasis identified or evidence to suggest biliary tree dilatation however, the gallbladder wall appears thickened; presence of ascites may indicate gallbladder hydrops appears rather than cholecystitis; limited abdominal ascites, bilateral pleural effusions incidentally identified. Portable vein duplex ultrasound per radiologist showed patent portal vein with hepatopetal flow. CTA chest per radiologist showed unremarkable CT pulmonary angiogram, no pulmonary embolism, large bilateral pleural effusions. 2-D echo per timber sizer shows severe biventricular failure, moderate to severe MR and TR, ejection fraction approximately 20%. Patient was started on methimazole, propanolol, and Solu-Cortef. Patient was also placed on Questran. LFTs were monitored every 4 hours. Patient was placed on acetylcysteine. Patient was also placed on Lasix. Aldactone was added. Patient was placed on Cozaar. Patient was also found to have new onset atrial fibrillation. Patient was continued on propanolol and methimazole to treat underlying cause. Patient was also found to have hyperkalemia with a potassium of 5.7. He was given calcium gluconate. He was also given insulin followed by an D50 with resolution. Case was discussed with material handler floorperson at [facility]. Patient was accepted to [facility] ICU. Patient was transferred to [facility] ICU for further workup and treatment and higher level of care. Physical exam: General: Awake and alert lying in bed in no acute distress HEENT: Normocephalic, atraumatic. Extraocular muscles intact, pupils equal and reactive, positive scleral icterus. Oropharynx is pink and moist. Neck is supple. Cardiovascular: Irregularly irregular rhythm. No murmurs, rubs, or gallops appreciated Pulmonary: Normal respiratory effort. Decreased breath sounds. No rhonchi, rales, or wheezing appreciated. Gastrointestinal: Soft, nondistended. Positive right upper quadrant abdominal tenderness with mild palpation. Positive bowel sounds all 4 quadrants. No guarding. Musculoskeletal: Moves all extremities. No calf tenderness. No CVA tenderness. Trace bilateral lower extremity edema Central nervous system: AAO x3, CN 2-12 grossly intact. 5 out of 5 muscle strength all extremities. Dermatologic: Skin warm and dry. Please see chart for full details.
[2018-04-04 21:46] LABS: INR 2.68; PROTHROMBIN TIME 31.2 SECONDS (9.4-12.5)
[2018-04-04 21:59] LABS: ALBUMIN 3.5 g/dL (3.0-4.8); ALT/SGPT 678 U/L (7-56); BILIRUBIN,DIRECT 1.2 mg/dL (0.0-0.4); BLOOD UREA NITROGEN 23 mg/dL (7-21); CALCIUM 8.4 mg/dL (8.4-10.5); GAMMA GLUTAMYL TRANSPEPTIDASE 131 U/L (8-78); GFR NON-AFRICAN AMERICAN > 60
[2018-04-04 22:09] LABS: AST/SGOT 1343 U/L (17-59)
[2018-04-05 00:34] VITALS: BP 110/55; PULSE 125; RESP 21; O2SAT 88
--- NOTE | 2018-04-05 00:41 | PN ---
DATE: 04/04/2018 LOCATION: ICU 128, room 4. SUBJECTIVE: This is a 27-year-old male with recent overt thyrotoxicosis presenting here with marked hyperthyroidism noted both historically, clinically and biochemically as noted thereof. He also had a brief bout of rapid atrial fibrillation, which reversed with cardiac medications as given with concomitant hyperadrenergic manifestations typical of overt hyperthyroidism. LABORATORY DATA: His repeat chemistries today showed a BUN of 21, sodium 134, potassium 5.0, chloride 98, CO2 21, glucose 262 and creatinine 0.8. His hemoglobin A1c is 5.7%. His repeat thyroid studies showed a free T4 of 5.91 with a total T4 and thyroxine level of 20.2 and TSH of less than 0.02. So at this time, we will modify once again his current thyroid management and switch him over and we will continue the modified Tapazole given as 20 mg p.o. every 6 hours as ordered. We will obtain serial chemistries and supplement accordingly as needed. We will obtain serial thyroid studies and titrate his dose regimen accordingly. We will continue the current medical management as given. The elevated liver transaminases could well be multifactorial with marked thyroid function indices as noted. Moreover, we will also attribute the aforementioned to persistent thyroid hyperplasia from recent drug omission as noted thereof. PLAN OF MANAGEMENT: We will continue the high-dose Tapazole given as 20 mg every 6 hours as ordered. We will modify the current coverage as ordered with Tapazole given as 20 mg p.o. every 6 hours as ordered. We will cautiously also observe his metabolic and clinical response thereof. We will follow. Louise Cunningham MD
[2018-04-05 19:45] LABS: THYROGLOBULIN 171.5 ng/mL (2.8-40.9)
--- NOTE | 2018-04-05 20:08 | PN ---
DATE: 04/05/2018 ENDO FOLLOWUP NOTE LOCATION: ICU 128, Room 4. SUBJECTIVE: This is a 27-year-old male presenting here with marked hyperthyroidism and supervening biventricular failure with bilateral pleural effusions and is now being followed closely for metabolic management. He received the maximal medical therapy for his hyperthyroid condition as given and tolerated. However, his liver transaminases were quite elevated as noted. A full cardiac workup was undertaken and was also treated for rapid atrial fibrillation and improved clinically and hemodynamically as noted. However, his echocardiogram showed the presence of a very low ejection fraction of 20% with moderate to severe mitral and tricuspid regurgitation. His blood pressures remained on the low side of normal as noted. LABORATORY DATA: His chemistries showed a BUN of 23, sodium 132, potassium 4.1, chloride 95, CO2 24, glucose 121 and creatinine 0.8. His AST was 1343 and his ALT was 678 with a GGTP of 131. The thyroid study showed a T4 of 20.2 and a free T4 of 5.91 and a TSH of less than 0.02. RECOMMENDATIONS: So at this time, we will recommend the same maximal dosing of methimazole at 20 mg every 6 hours as given with propranolol given as 10 mg every 6 hours as ordered. He is being transferred to a tertiary center for closer followup of his liver decompensation and also concomitant biventricular failure as noted. We will follow. Louise Cunningham MD
[2018-04-09 16:17] LABS: TSI 533 % baseline (<140)
== END 2018-04-05 00:35 | disposition short-term general hospital (02) | DRG 566 ==
LOC: ED 17:53 → ERH 20:43 → ICU 22:54
PROVIDERS: ADMIT Internal Medicine; ATTEND Hospitalist
DX: E05.01 Thyrotoxicosis with diffuse goiter with thyrotoxic crisis or storm (principal); K72.00 Acute and subacute hepatic failure without coma; I11.0 Hypertensive heart disease with heart failure; I50.82 Biventricular heart failure; R18.8 Other ascites; I08.1 Rheumatic disorders of both mitral and tricuspid valves; I42.9 Cardiomyopathy, unspecified; E87.5 Hyperkalemia; J44.0 Chronic obstructive pulmonary disease with (acute) lower respiratory infection; J20.9 Acute bronchitis, unspecified; I48.91 Unspecified atrial fibrillation; E83.42 Hypomagnesemia; I27.21 Secondary pulmonary arterial hypertension; E78.5 Hyperlipidemia, unspecified; D50.9 Iron deficiency anemia, unspecified; F10.10 Alcohol abuse, uncomplicated; F17.200 Nicotine dependence, unspecified, uncomplicated; K70.9 Alcoholic liver disease, unspecified; F12.90 Cannabis use, unspecified, uncomplicated; H54.62 Unqualified visual loss, left eye, normal vision right eye; S05.8X2S Other injuries of left eye and orbit, sequela; V03.90XS Pedestrian on foot injured in collision with car, pick-up truck or van, unspecified whether traffic or nontraffic accident, sequela

== ENCOUNTER 2018-07-02 14:13 | Emergency (ER) | payer MEDICAID ==
[2018-07-02 14:30] VITALS: BMI 23.6
[2018-07-02 14:33] VITALS: RESP 18; TEMP 98.7
[2018-07-02 15:19] LABS: ALB/GLOB RATIO 1.2 (1.1-1.8); ALBUMIN 4.6 g/dL (3.0-4.8); ALT/SGPT 24 U/L (7-56); AST/SGOT 31 U/L (17-59); BLOOD UREA NITROGEN 8 mg/dL (7-21); CALCIUM 9.8 mg/dL (8.4-10.5); GFR NON-AFRICAN AMERICAN > 60
[2018-07-02 15:20] LABS: INR 1.2; PARTIAL THROMBOPLASTIN TIME 34.1 Seconds (26.9-38.3); PROTHROMBIN TIME 13.3 SECONDS (9.4-12.5)
[2018-07-02 15:24] LABS: BASO # 0.01 K/mm3 (0.0-2.0); BASO % 0.1 % (0.0-3.0); EOS # 0.1 (0.0-0.7); EOS % 0.9 % (1.5-5.0); HEMOGLOBIN 13.9 g/dL (14.0-18.0); LYMPH # 1.6 (1.2-3.4); LYMPH % 14.8 % (22.0-35.0); MEAN CELL VOLUME 81.5 fl (80.0-105.0); MEAN CORPUSCULAR HGB CONC 33.2 g/dl (31.0-37.0); MEAN PLATELET VOLUME 11.8 fl (7.0-11.0); MONO % 9.1 % (1.0-6.0); RBC 5.14 10^6/uL (3.5-6.1); RED CELL DISTRIBUTION WIDTH 14.6 % (11.5-14.5); WHITE BLOOD COUNT 10.6 10^3/uL (4.5-11.0)
[2018-07-02 15:31] LABS: B-TYPE NATRIURETIC PEPTIDE 161 pg/mL (0-450); TROPONIN I < 0.01 ng/mL
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
--- NOTE | 2018-07-02 16:33 | RAD ---
Date of service: 07/02/2018 HISTORY: chest pain COMPARISON: 04/04/2018 FINDINGS: LUNGS: No active pulmonary disease. PLEURA: No significant pleural effusion identified, no pneumothorax apparent. CARDIOVASCULAR: No aortic atherosclerotic calcification present. Normal cardiac size. No pulmonary vascular congestion. OSSEOUS STRUCTURES: No significant abnormalities. VISUALIZED UPPER ABDOMEN: Normal. OTHER FINDINGS: None. IMPRESSION: No active disease.
[2018-07-02 17:59] VITALS: BP 135/69; PULSE 102; O2SAT 98
--- NOTE | 2018-07-03 09:37 | CARD ---
APPROVED REPORT Date of service: 07/02/2018 EKG Measurement Heart [id number] <Conclusion> Sinus tachycardia Otherwise normal ECG
== END 2018-07-02 18:00 | disposition home or self-care (01) ==
LOC: ED 14:13
DX: E05.90 Thyrotoxicosis, unspecified without thyrotoxic crisis or storm (principal); R07.89 Other chest pain; F17.210 Nicotine dependence, cigarettes, uncomplicated